=== PATIENT | female | born 1935 | race Caucasian/White ===

== ENCOUNTER 2019-12-11 13:42 | Outpatient (CLI) | payer MEDICARE, SELFPAY ==
[2019-12-11 14:16] LABS: Basophils Percent Auto 0.5 % (0.2-1.2); Eosinophils Absolute Auto 0.2 K/mm3 (0-0.3); Eosinophils Percent Auto 4.1 % (0-4.4); Hematocrit 44.1 % (37.0-47.0); Hemoglobin 14.2 g/dL (12.0-15.0); Immature Granulocyte Absolute 0.01 K/mm3 (0.00-0.031); Immature Granulocyte Percent A 0.2 % (0-0.5); Lymphocytes Absolute Auto 1.68 K/mm3 (0.9-3.2); Lymphocytes Percent Auto 28.5 % (18.3-44.2); Mean Corpuscular HGB Conc 32.2 g/dl (32-36); Mean Corpuscular Hemoglobin 27.9 pg (26-34); Mean Corpuscular Volume 86.6 fl (80-100); Mean Platelet Volume 10.1 fl (7.4-10.4); Monocytes Absolute Auto 0.7 K/mm3 (0.1-0.6); Monocytes Percent Auto 11.9 % (2.6-8.5); Neutrophils Absolute Auto 3.2 K/mm3 (1.3-6.7); Neutrophils Percent Auto 54.8 % (45.5-73.1); Platelet Count Result 242 k/mm3 (150-375); Red Blood Count 5.09 M/mm3 (4.2-5.4); Red Cell Distribution Width 15.5 % (11.5-14.5); White Blood Count 5.9 K/mm3 (4.5-10.0)
[2019-12-11 14:27] LABS: Cholesterol 219 mg/dL (0-200); HDL Direct 58 mg/dL; Triglycerides 216 mg/dL (<150)
[2019-12-11 14:28] LABS: Alanine Aminotransferase 13 U/L (4-35); Albumin Level 4.3 g/dL (3.5-5.1); Alkaline Phosphatase 88 U/L (38-126); Anion Gap 10.1 mmol/L (7-16); Aspartate Amino Transferase 33 U/L (14-36); Bilirubin,Total 0.5 mg/dL (0.2-1.3); Blood Urea Nitrogen 23 mg/dL (7-17); Calcium 8.9 mg/dL (8.4-10.2); Carbon Dioxide 30 mmol/L (22-30); Chloride 98 mmol/L (98-107); Estimated Glomerular Filt Rate 60; Glucose 111 mg/dL (65-105); Potassium 4.1 mmol/L (3.4-5.0); Sodium 134 mmol/L (137-145)
[2019-12-11 14:37] LABS: LDL Cholesterol Direct 120 mg/dL
[2019-12-11 15:29] LABS: Free T4 Free Thyroxine 1.74 ng/mL (0.78-2.19)
== END 2019-12-11 13:43 | disposition home or self-care (01) ==
PROVIDERS: PCP Family Medicine; Visit Provider Physician Assistant
DX: I10 Essential (primary) hypertension (principal); E03.9 Hypothyroidism, unspecified; R94.6 Abnormal results of thyroid function studies
CPT/HCPCS: 36415; 80053; 80061; 84439; 84443; 85025

== ENCOUNTER 2020-02-22 12:31 | Emergency (ER) | payer MEDICARE, SELFPAY ==
--- NOTE | ~2020-02-22 | CT_ITS ---
EXAMINATION: CT brain wo con EXAM DATE: 02/22/2020 13:26 INDICATION: Fall, right-sided head injury. TECHNIQUE: Spiral CT of the head was performed without contrast. Axial, coronal and sagittal images were reviewed. The dose-length product (DLP) for this examination was 605.33 mGy-cm. The exposure w as tailored according to patient size, and iterative reconstruction (ASIR) was used as additional dos e reduction technique. There is no prior study for comparison. FINDINGS: There is no acute intraparenchymal hemorrhage. No evidence of intraparenchymal brain mass lesion. No evidence of acute infarction. Please note that initial head CT has limited sensitivity f or small or acute infarctions. There is mild periventricular and subcortical hypodensity, nonspecific but probably related to small vessel ischemic disease. There is mild to moderate prominence of the sulci and ventricles related to cerebral atrophy. There is intracranial carotid arteriosclerosis. There are no extra-axial collections. There is no mass effect or midline shift. Patient has had le ft-sided ocular lens surgery. There is large right vertex scalp hematoma. The visualized sinuses an d mastoid air cells are well aerated. IMPRESSION: 1. No acute intracranial findings. 2. Chronic age related findings. 3. Large right vertex scalp hematoma without underlying fracture. Reviewed, dictated and finalized at location A.
--- NOTE | ~2020-02-22 | XR_ITS ---
EXAMINATION: XR hip RT 2V w AP pelvis EXAM DATE: 02/22/2020 13:17 INDICATION: Fall, pelvic, right hip pain. TECHNIQUE: Right hip frontal, 'frog leg' projections for interpretation. Frontal projection pelvis. There is no prior study for comparison. FINDINGS: Smooth right hip femoral head contour, no radiographic evidence of avascular necrosis. There is mild symmetric bilateral hip primary osteoarthritis. There are no acute fractures or disloca tions identified. There is no subcutaneous gas. The soft tissue is unremarkable. Some scattered a bdominal surgical clips. IMPRESSION: No acute right hip, pelvic findings. Reviewed, dictated and finalized at location A.
--- NOTE | ~2020-02-22 | XR_ITS ---
EXAMINATION: XR elbow RT min 3V EXAM DATE: 02/22/2020 13:17 INDICATION: Initial encounter following injury, with pain of the right elbow. TECHNIQUE: Right elbow frontal, lateral with flexion, and oblique projections obtained and reviewed. There is no prior study for comparison. FINDINGS: There is large right elbow joint hemarthrosis. There is acute closed posttraumatic nondispl aced radial head/neck fracture. No radiopaque foreign bodies identified. IMPRESSION: 1. Acute right radial head/neck fracture. 2. Large right elbow joint hemarthrosis. Reviewed, dictated and finalized at location A.
--- NOTE | ~2020-02-22 | XR_ITS ---
EXAMINATION: XR wrist RT min 3V EXAM DATE: 02/22/2020 13:17 INDICATION: Initial encounter following injury, with pain of the right elbow. TECHNIQUE: Right elbow frontal, lateral with flexion, and oblique projections obtained and reviewed. There is no prior study for comparison. FINDINGS: Right elbow anterior humeral line intact. There are no acute fractures or dislocations margarita ntified. There is no subcutaneous gas. The soft tissue is unremarkable. There are no radiopaque f oreign bodies. There is mild triscaphe primary osteoarthritis. IMPRESSION: 1. XR wrist RT min 3V exam without acute osseous findings. Reviewed, dictated and finalized at location A.
[2020-02-22 12:33] VITALS: BP 147/98; PULSE 93; RESP 18; TEMP 36.3; O2SAT 100
--- NOTE | 2020-02-22 14:19 | ED.GENADULT ---
HPI - General Adult General Chief complaint: Fall Stated complaint: fall, sent from [facility] Time Seen by Provider: 02/22/20 12:36 Source: RN notes reviewed History of Present Illness HPI narrative: Patient presents emergency department from urgent care for a fall. Patient states she fell 5 days ago states she was in her basement she slipped and fell. She states at that time she had struck her head causing swelling to the right side of her head as well as her right elbow wrist and hip. She states she has been up walking around but does note of bruising to the right elbow wrist and hip and had gone to urgent care today and referred to the emergency department for further evaluation as the patient is on Eliquis. She denies any loss of consciousness denies any change in mental status nausea or vomiting vision changes numbness or tingling in extremities chest pain shortness of breath abdominal pain nausea vomiting or any other symptoms. Patient states she has been walking without any difficulty as well as been using her arm with no difficulty. States she has been taking Tylenol at home for her pain with good improvement. Related Data Home Medications Medication Instructions Recorded Confirmed hydrochlorothiazide 12.5 mg tablet 12.5 mg PO DAILY 05/30/19 01/25/20 metoprolol succinate 100 mg 100 mg PO BID 05/30/19 01/25/20 tablet,extended release 24 hr Allergies Allergy/AdvReac Type Severity Reaction Status Date / Time No Known Allergies Allergy Unverified 11/28/19 14:03 Review of Systems Review of Systems: Narrative: Gen.: Denies fevers or chills Eyes: Denies eye pain or visual change ENT: Denies congestion Respiratory: Denies shortness of breath or cough CV: Denies chest pain or palpitations GI: Denies abdominal pain nausea, emesis or diarrhea Musculoskeletal: See HPI Neuro: Denies numbness, tingling, weakness or focal weakness Skin: Denies rash Except as documented, all other systems reviewed and negative [facility] Past Medical History Medical History A-fib Bladder incontinence Colon cancer Hypothyroidism determined by thyroid function test Vulva cancer Social History Social History Social History: Smoking status: Never smoker Second hand tobacco smoke exposure: No Alcohol intake: never Substance use: never Substance use type: does not use Gender identity (if verbalized by the patient): Female Exam Narrative: Exam Narrative: APPEARANCE: Well appearing, no apparent distress, well-nourished. HEENT: normocephalic swelling and ecchymosis of right superior lateral scalp no facial tenderness EYES: PERRL NECK: Supple. No midline tenderness to palpation. Full range of motion without pain RESPIRATORY: No respiratory distress. Clear to auscultation bilaterally CARDIOVASCULAR: Regular rate and rhythm without murmurs rubs or gallops. ABDOMINAL: Soft, nontender, nondistended, no rebound or guarding MUSCULOSKELETAl: Moves all extremities. No tenderness to palpation of left upper and lower extremities. No clubbing cyanosis or edema the right elbow is mildly tender over the lateral aspect with swelling and ecchymosis present, full flexion-extension of the elbow without pain, mild diffuse tenderness of the wrist, full flexion-extension of the wrist without pain, ecchymosis and mild swelling of the right wrist, no tenderness of the hand with full flexion-extension of all 5 MCP and IP joints, no tenderness of the right shoulder with full movement, bilateral radial pulse 2+, the right lateral hip has mild tenderness palpation with swelling present no tenderness of the right knee or ankle, cells pedis pulse 2+ Back: No midline thoracic or lumbar tenderness to palpation Pelvis: Stable, nontender NEURO: Awake and alert ?3. Follows commands. Speech normal. No focal deficits. SKIN:: Warm, dry. Normal Color Cour
== END 2020-02-22 15:01 | disposition home or self-care (01) ==
PROVIDERS: Emergency Provider Emergency Medicine; PCP Family Medicine
DX: S52.124A Nondisplaced fracture of head of right radius, initial encounter for closed fracture (principal); S00.93XA Contusion of unspecified part of head, initial encounter; S70.01XA Contusion of right hip, initial encounter; S60.211A Contusion of right wrist, initial encounter; I48.91 Unspecified atrial fibrillation; E03.9 Hypothyroidism, unspecified; Z85.44 Personal history of malignant neoplasm of other female genital organs; Z85.038 Personal history of other malignant neoplasm of large intestine; W01.0XXA Fall on same level from slipping, tripping and stumbling without subsequent striking against object, initial encounter
CPT/HCPCS: 70450; 73080; 73110; 73502; 99284; A4565

== ENCOUNTER 2020-07-14 19:49 | Inpatient (IN) | payer MEDICARE, SELFPAY ==
--- NOTE | ~2020-07-14 | XR_ITS ---
EXAMINATION: XR hip LT 2V w AP pelvis DATE: 07/14/2020 21:00 INDICATION: Left hip pain. Fall. TECHNIQUE: An anteroposterior view of the pelvis and 2 views of left hip were obtained. COMPARISON: Pelvis and right hip radiographs 02/22/2020 FINDINGS: There is a subcapital fracture of left femoral neck. The distal fracture fragment demonstra elliott 40 degrees varus angulation, 1.5 cm shortening, and 10 mm anterior displacement. There is mild os teoarthritis of the hips. Surgical clips overlie the abdomen. IMPRESSION: 1. Subcapital fracture of left femoral neck. 2. Mild osteoarthritis of the hips. Reviewed, dictated and finalized at location A. JOINTER OPERATOR
--- NOTE | ~2020-07-14 | XR_ITS ---
EXAMINATION: XR surgery orthopedic DATE: 07/16/2020 20:02 INDICATION: Distal left radius fracture. TECHNIQUE: 21 intraoperative fluoroscopic views of the left wrist were obtained. I was not present. F luoroscopy exposure time was 202 seconds. COMPARISON: Left wrist CT 07/14/2020 FINDINGS: There is a comminuted fracture of distal radius in near-anatomic alignment status post open reduction internal fixation with volar plate and screws. There is an avulsion fracture of the ulnar styloid. There is severe osteoarthritis of triscaphe joint. IMPRESSION: 1. Comminuted fracture of distal radius in near-anatomic alignment status post open reduction interna l fixation. 2. Avulsion fracture of the ulnar styloid. Reviewed, dictated and finalized at location A. UTIVE DIRECTOR OF MARKETING IMPRESSION: 1. Comminuted fracture of distal radius in near-anatomic alignment status post open reduction internal fixation. 2. Avulsion fracture of the ulnar styloid.
--- NOTE | ~2020-07-14 | XR_ITS ---
EXAMINATION: XR hip RT min 2V DATE: 07/15/2020 13:59 INDICATION: Fall. Suboptimal imaging on prior pelvic radiographs with right hip in internal rotation. TECHNIQUE: 2 portable anteroposterior views of the right hip were obtained, one centered at the femor al head and the second centered more caudally near the level of the lesser trochanter. COMPARISON: 07/14/2020 FINDINGS: Alignment is normal. No fracture. Mild right hip and sacroiliac osteoarthritis. A few phleboliths in the pelvis. Atherosclerotic calcific a cyst along the right common femoral and proximal right femoral artery. IMPRESSION: 1. Mild right hip osteoarthritis. No acute osseous abnormality. Reviewed, dictated and finalized at location A. LIFT MULE OPERATOR
--- NOTE | ~2020-07-14 | XR_ITS ---
EXAMINATION: XR chest 1V portable DATE: 07/14/2020 21:00 INDICATION: Atrial fibrillation. Fall. TECHNIQUE: A single frontal view of the chest was obtained. COMPARISON: Chest single view 10/23/12, CT abdomen and pelvis 01/19/2018 FINDINGS: A calcified right lung nodule and calcified right hilar lymph nodes are consistent with old granulomatous disease. There is mild scarring at the lung apices. There is mild atelectasis at the l walter bases. No pleural effusion or pneumothorax. Cardiomegaly is noted. There are old healed left rib fractures. IMPRESSION: 1. Mild atelectasis at the lung bases. 2. Cardiomegaly. Reviewed, dictated and finalized at location A. CHANGE CREW MEMBER
--- NOTE | ~2020-07-14 | XR_ITS ---
EXAMINATION: XR surgery orthopedic DATE: 07/16/2020 16:37 INDICATION: Left femoral neck fracture. TECHNIQUE: 2 intraoperative views of left hip were obtained. COMPARISON: Pelvis radiograph 07/14/2020 FINDINGS: The acetabular component of the bipolar arthroplasty is in expected position. There is a br oach in the proximal left femur. No fracture. IMPRESSION: 1. Bipolar left hip hemiarthroplasty in progress. Reviewed, dictated and finalized at location A. ITY SUPERVISOR BOAT AND PLANT
--- NOTE | ~2020-07-14 | XR_ITS ---
EXAMINATION: XR pelvis 1-2V DATE: 07/14/2020 21:54 INDICATION: Left femoral neck fracture. TECHNIQUE: An anteroposterior view of the pelvis was obtained. COMPARISON: Radiographs 07/14/2020 FINDINGS: There is a subchondral fracture of left femoral neck. The distal fracture fragment demonstr ates 40 degrees varus angulation and 1.5 cm shortening. There is mild osteoarthritis of the hips. Dell gical clips overlie the abdomen. IMPRESSION: 1. Subcapital fracture of left femoral neck. 2. Mild osteoarthritis of the hips. Reviewed, dictated and finalized at location A. GENERATOR OPERATOR
--- NOTE | ~2020-07-14 | CT_ITS ---
EXAMINATION: CT wrist LT wo con DATE: 07/14/2020 23:13 INDICATION: Distal left radius fracture. TECHNIQUE: Computed tomography (CT) of the left wrist was performed without intravenous contrast. Aut omated exposure control and iterative reconstruction technique were employed. The dose-length product was 630.53 mGy-cm. COMPARISON: Left wrist radiographs 07/14/2020 FINDINGS: There is a comminuted fracture of distal radius with involvement of the distal articular vick rface and distal radioulnar joint. The main distal fracture fragment demonstrates impaction and dorsa l angulation. There is 6 degrees dorsal tilt of the distal articular surface. There is an avulsion fr acture of the ulnar styloid. There is severe osteoarthritis of triscaphe joint. IMPRESSION: 1. Comminuted fracture of distal radius. 2. Avulsion fracture of the ulnar styloid. Reviewed, dictated and finalized at location A. CIPAL WEB DEVELOPER
--- NOTE | ~2020-07-14 | XR_ITS ---
EXAMINATION: XR hip LT 1V w AP pelvis DATE: 07/16/2020 18:01 INDICATION: Left femoral neck fracture. TECHNIQUE: An anteroposterior view of the pelvis and single view of left hip were obtained. COMPARISON: Pelvis radiograph 07/14/2020 FINDINGS: There is a bipolar left hip hemiarthroplasty in near-anatomic alignment. No fracture. There is mild right hip osteoarthritis. IMPRESSION: 1. Bipolar left hip hemiarthroplasty in near-anatomic alignment. Reviewed, dictated and finalized at location A. LEX CASE MANAGER
--- NOTE | ~2020-07-14 | XR_ITS ---
EXAMINATION: XR wrist LT min 3V DATE: 07/14/2020 21:00 INDICATION: Left wrist pain. Fall. TECHNIQUE: 2 views of left wrist were obtained. COMPARISON: None. FINDINGS: There is a comminuted fracture of distal radius with involvement of the distal articular vick rface and distal radioulnar joint. The main distal fracture fragment demonstrates impaction and dorsa l angulation. There is 11 degrees dorsal tilt of the distal articular surface. There is an avulsion f racture of the ulnar styloid. There is moderate osteoarthritis of triscaphe joint. Osteopenia is note d. IMPRESSION: 1. Comminuted fracture of distal radius. 2. Avulsion fracture of the ulnar styloid. Reviewed, dictated and finalized at location A. PRESIDENT TALENT MANAGEMENT
[2020-07-14 19:47] VITALS: BP 172/86; PULSE 97; RESP 18; TEMP 36.6; O2SAT 97
--- NOTE | 2020-07-14 20:16 | ECG_ITS ---
Measurements Intervals [place] Rate: 89 P: IA: 0 QRS: 81 QRSD: 84 T: 42 QT: 386 QTc: 471 Interpretive Statements ATRIAL FIBRILLATION ABNORMAL ECG Electronically Signed On 07-15-2020 6:50:42 LENDING CONSULTANT by Francisco Reynolds D.O.
[2020-07-14] MEDS: MORPHINE SULFATE (*CRX) 4 MG/ML INJ IV PUSH (20:48)
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
[2020-07-14 21:37] LABS: Basophils Percent Auto 0.3 % (0.2-1.2); Eosinophils Absolute Auto 0.1 K/mm3 (0-0.3); Eosinophils Percent Auto 0.8 % (0-4.4); Hematocrit 42.9 % (37.0-47.0); Hemoglobin 14.1 g/dL (12.0-15.0); Immature Granulocyte Absolute 0.08 K/mm3 (0.00-0.031); Immature Granulocyte Percent A 0.6 % (0-0.5); Lymphocytes Absolute Auto 1.28 K/mm3 (0.9-3.2); Lymphocytes Percent Auto 9.1 % (18.3-44.2); Mean Corpuscular HGB Conc 32.9 g/dl (32-36); Mean Corpuscular Hemoglobin 29.7 pg (26-34); Mean Corpuscular Volume 90.5 fl (80-100); Mean Platelet Volume 10.1 fl (7.4-10.4); Monocytes Absolute Auto 0.6 K/mm3 (0.1-0.6); Monocytes Percent Auto 4.5 % (2.6-8.5); Neutrophils Percent Auto 84.7 % (45.5-73.1); Platelet Count Result 213 k/mm3 (150-375); Red Blood Count 4.74 M/mm3 (4.2-5.4); White Blood Count 14.1 K/mm3 (4.5-10.0)
[2020-07-14 21:46] LABS: INR 1.1; Prothrombin Time 14.7 Seconds (11.1-14.7)
[2020-07-14 21:47] LABS: Partial Thromboplastin Time 30.5 SECONDS (22.3-36.8)
[2020-07-14 21:50] LABS: Anion Gap 9 mmol/L (8-16); Blood Urea Nitrogen 25 mg/dL (7-17); Calcium 9.3 mg/dL (8.4-10.2); Carbon Dioxide 25 mmol/L (22-30); Chloride 105 mmol/L (98-107); Estimated CRCL calculation 46 ml/min; Estimated Glomerular Filt Rate 60; Glucose 112 mg/dL (65-105); Potassium 4.1 mmol/L (3.4-5.0); Sodium 139 mmol/L (137-145)
[2020-07-14 22:26] VITALS: BP 166/93; PULSE 104; RESP 18; O2SAT 98
[2020-07-14 23:20] VITALS: BP 159/95; PULSE 111; RESP 18; O2SAT 95
--- NOTE | 2020-07-14 23:35 | ADMGEN ---
This patient, Jossy Rasheed, was admitted to Medical Room 348-01. Patient/family oriented to hospital policies and general routines including ID bracelet, bed and alarms, visiting hours, pain management, procedures, bathroom and other care routines, personal items, smoking policy, room service/diet, and visiting hours. Information on how to activate the Rapid Response Team has been discussed. Patient/Family are encouraged to report perceived risks to care and to ask questions if they do not understand what they are told or what they should do.
[2020-07-14 23:45] VITALS: BMI 29.0
[2020-07-15] VITALS (7 sets, daily range): BP systolic 131–171; BP diastolic 56–95; PULSE 83–100; RESP 16–20; TEMP 35.5–36.6; O2SAT 95–97
[2020-07-15] MEDS: ACETAMINOPHEN 325 MG TABLET 650 MG PO (05:14)
[2020-07-15 08:02] LABS: Hematocrit 39.1 % (37.0-47.0); Hemoglobin 12.9 g/dL (12.0-15.0); Mean Corpuscular Hemoglobin 29.5 pg (26-34); Mean Corpuscular Volume 89.5 fl (80-100); Mean Platelet Volume 10.1 fl (7.4-10.4); Platelet Count Result 194 k/mm3 (150-375); Red Blood Count 4.37 M/mm3 (4.2-5.4); White Blood Count 8.7 K/mm3 (4.5-10.0)
[2020-07-15 08:12] LABS: Alanine Aminotransferase 17 U/L (4-35); Albumin Level 3.5 g/dL (3.5-5.1); Alkaline Phosphatase 78 U/L (38-126); Anion Gap 6 mmol/L (8-16); Aspartate Amino Transferase 28 U/L (14-36); Bilirubin,Total 0.6 mg/dL (0.2-1.3); Blood Urea Nitrogen 23 mg/dL (7-17); Calcium 8.6 mg/dL (8.4-10.2); Carbon Dioxide 27 mmol/L (22-30); Chloride 104 mmol/L (98-107); Estimated CRCL calculation 57 ml/min; Estimated Glomerular Filt Rate > 60; Glucose 125 mg/dL (65-105); Potassium 3.9 mmol/L (3.4-5.0); Sodium 137 mmol/L (137-145)
[2020-07-15] MEDS: oxyCODONE HCL (*CRX) 2.5 MG TAB IR PO ×5 (08:35→23:40)
--- NOTE | 2020-07-15 08:56 | PM.IMHP ---
H&P: HPI History of Present Illness Date/Time: 07/15/20 08:56 Chief Complaint: Fall at home Narrative: Jossy Rasheed is a 85 year old female admitted through the emergency room with the complaints that while picking up her newspaper at home home she fell down and injured her left side of the body resulting in fracture of the femur and the left wrist. Patient denies hitting her head patient, denies any shortness of breath or chest pain. Patient denies any loss of consciousness. Patient pain is controlled at present time. Review of Systems Review of Systems: All systems reviewed & are unremarkable except as noted in HPI and below (the history and physical exam) [facility] Past Medical History Medical History (Updated 07/14/20 @ 21:36 by Mio Morel MD) A-fib Bladder incontinence Colon cancer Hypothyroidism determined by thyroid function test Venous insufficiency of both lower extremities Vulva cancer Surgical History Surgical History H/O hemicolectomy Family History Family History Mother Carcinoma of colon, Onset Age: 75 Patient's mother is Father Family history of Alzheimer's disease, Onset Age: 75 Patient's father is Social History Social History (Updated 04/09/20 @ 13:12 by Lety Wasserman) Social History: Smoking status: Never smoker Second hand tobacco smoke exposure: Yes Alcohol intake: never Substance use: never Substance use type: does not use Gender identity (if verbalized by the patient): Female Spiritual care concerns: No Meds Home Medications and Allergies Home Medications Medication Instructions Recorded Confirmed Type apixaban 5 mg tablet 5 mg PO BID #60 tablet 04/09/20 07/14/20 Rx furosemide 20 mg tablet 20 mg PO QAM #30 tablet 04/09/20 07/14/20 Rx levothyroxine 75 mcg tablet 75 mcg PO DAILY #90 tablet 04/09/20 07/14/20 Rx losartan 50 mg tablet 50 mg PO DAILY #90 tablet 04/09/20 07/14/20 Rx metoprolol succinate 100 mg 100 mg PO BID #180 tablet 04/09/20 07/14/20 Rx tablet,extended release 24 hr Allergies Allergy/AdvReac Type Severity Reaction Status Date / Time No Known Allergies Allergy Verified 07/14/20 23:54 Vital Signs Vital Signs - 24 hr 07/14/20 19:47 07/14/20 22:26 07/14/20 23:20 Temperature 36.6 C Pulse Rate 97 104 H 111 H Respiratory Rate 18 18 18 Blood Pressure 172/86 H 166/93 H 159/95 H Pulse Oximetry 97 98 95 07/15/20 00:34 07/15/20 04:55 07/15/20 08:04 Temperature 36.2 C L 36.6 C 35.5 C L Pulse Rate 100 83 88 Respiratory Rate 16 20 Blood Pressure 171/95 H 141/82 H 144/81 H Pulse Oximetry 96 97 95 Exam Narrative: Exam Narrative: Exam Narrative: GENERAL: Uncomfortable-appearing, well-nourished, and in no acute distress. HEAD: Normocephalic, atraumatic. EYES: PERRL and EOMI. CHEST: Clear to auscultation. No respiratory distress. HEART: Regular rate and rhythm. Normal peripheral pulses. ABDOMEN: Soft, nontender, nondistended. EXTREMITIES: Left upper extremity with deformity and tenderness at the wrist with no tenderness of the elbow or shoulder. Limited range of motion due to pain. Left hip with pain and inability to perform range of motion exercises. Left leg shortening compared to right. Neurovascularly intact distal to injury. SKIN: Warm, dry, no rash. NEURO: No focal deficits. Alert and oriented x3. PSYCH: Normal mood and affect. H&P: Results Labs Labs: Short CBC 07/14/20 07/15/20 Range/Units 21:28 07:51 WBC 14.1 H 8.7 (4.5-10.0) K/mm3 Hgb 14.1 12.9 (12.0-15.0) g/dL Hct 42.9 39.1 (37.0-47.0) % Plt Count 213 194 (150-375) k/mm3 [facility] 07/14/20 07/15/20 21:28 07:49 Sodium 139 137 Potassium 4.1 3.9 Chloride 105 104 Carbon Dioxide 25 27 BUN 25 H 23 H Creatinine 0.90 0.70 Glucose 112 H 125 H Calciu
[2020-07-15 09:22] LABS: Vitamin D 25 Hydroxy 29.2 ng/mL
[2020-07-15] MEDS: METOPROLOL SUCCINATE EXT REL 100 MG TABCR PO ×2 (10:26→20:14)
[2020-07-15] MEDS: LOSARTAN POTASSIUM 50 MG TABLET PO (10:27)
[2020-07-15] MEDS: LEVOTHYROXINE SODIUM 75 MCG TABLET PO (10:27)
[2020-07-15] MEDS: FUROSEMIDE 20 MG TABLET PO (10:28)
[2020-07-15] MEDS: ACETAMINOPHEN 500 MG TABLET 1000 MG PO ×3 (11:27→23:39)
[2020-07-15 12:20] LABS: Add Urine Microscopic? YES; Appearance Urine Clear (Clear); Bilirubin Urine Negative (Negative); Blood Urine 2+ (Negative); Color Urine Yellow (Yellow); Glucose Urine UA Negative (Negative); Ketones Urine Negative (Negative); Leukocyte Esterase Ur Trace LEU/UL (Negative); Nitrate Urine Negative (Negative); Protein Urine 1+ mg/dL (Negative); RBC Urine >75 /hpf (0-2); Specific Grav Ur 1.018 (1.001-1.035); Urobilinogen Urine Negative mg/dL (<2.0)
--- NOTE | 2020-07-15 13:02 | PC.NURSE ---
On 07/15/20, the student, [ Kirstie Cam], provided care and completed [facility] documentation on this patient. I have reviewed the student's documentation and agree with the findings.
--- NOTE | 2020-07-15 13:50 | PM.CNCAR ---
Assessment and Plan Assessment and plan (1) Preoperative cardiovascular examination: Code(s): Z01.810 - Encounter for preprocedural cardiovascular examination Status: Acute Assessment and Plan: Patient is at intermediate risk nonemergent noncardiac surgery for adverse cardiovascular events primarily related to her history of atrial fibrillation and stroke risk. Patient is not clinically in decompensated heart failure, does not exhibit new activity limitations or symptoms suggestive of angina. She has no known history of CAD and prior to her fall states she noted no new activity limitations. She is currently hemodynamically stable without acute ischemic changes on EKG. She has permanent atrial fibrillation. No further invasive testing preoperatively indicated. Ischemic evaluation at this time will not significantly change our management. They are aware there are risks with regards to stroke, myocardial infarction given her age nonetheless. Patient is optimized from a cardiac perspective at present. (2) A-fib: Qualifiers: Atrial fibrillation type: permanent Qualified Code(s): I48.21 - Permanent atrial fibrillation Code(s): I48.91 - Unspecified atrial fibrillation Status: Acute Assessment and Plan: Heart rate reasonably controlled. She was on Toprol XL 100 mg twice daily as well as apixaban 5 mg twice daily as an outpatient. Resume anticoagulation postoperatively to possible. This has been held already in anticipation for surgery. Continue beta-ethan therapy without interruption. Telemetry postoperatively times 24 hours to monitor heart rate control. (3) Recurrent falls: Code(s): R29.6 - Repeated falls Status: Acute Assessment and Plan: Had 2 falls in the past 6 months although 1 included head injury in February. We discussed candidacy for anticoagulation particularly if she has ongoing falls and potential need to discontinue in favor of aspirin. However, this will be addressed further as an outpatient unless new concerns arise in the interval period (4) Hypertension: Code(s): I10 - Essential (primary) hypertension Status: Acute Assessment and Plan: Elevated but fair control. Continue to monitor. Resume antihypertensive therapy. (5) Fracture of femoral neck, left, closed: Code(s): S72.002A - Fracture of unspecified part of neck of left femur, initial encounter for closed fracture Status: Acute Assessment and Plan: Per Orthopedic surgery. See above. (6) Distal radius fracture, left: Code(s): S52.502A - Unspecified fracture of the lower end of left radius, initial encounter for closed fracture Status: Acute Assessment and Plan: Currently in a splint/cast. Per Orthopedic surgery. (7) Hypothyroidism determined by thyroid function test: Code(s): E03.9 - Hypothyroidism, unspecified; R94.6 - Abnormal results of thyroid function studies Status: Acute Assessment and Plan: Per primary service. (8) Chronic anticoagulation: Code(s): Z79.01 - jail (current) use of anticoagulants Status: Acute Assessment and Plan: On hold, last dose yesterday morning. 48 hour hold adequate preoperatively. DVT prophylaxis in the interval. SCD's or Enoxaparin. History of Present Illness History of Present Illness Consult date/time: Date of service: 07/15/20 13:50 Cardiology consultation at the request of Dr. Barraza of [facility]opedic surgery for preoperative risk assessment. Requesting physician: Rm Barraza MD Consult reason: pre-op evaluation Reason For Visit: hip fracture, distal radius fracture Narrative: Patient is a very pleasant 85-year-old female with a past medical history significant for permanent atrial fibrillation, hypertension, hypothyroidism, dyslipidemia history of colon cancer, vulvar cancer is well known to our practice who was in her usual state of health wh
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
[2020-07-16] VITALS (17 sets, daily range): BP systolic 125–170; BP diastolic 64–98; PULSE 61–116; RESP 12–24; TEMP 36.1–36.4; O2SAT 93–99
[2020-07-16 06:11] LABS: Hematocrit 39.3 % (37.0-47.0); Hemoglobin 12.9 g/dL (12.0-15.0); Mean Corpuscular HGB Conc 32.8 g/dl (32-36); Mean Corpuscular Hemoglobin 29.1 pg (26-34); Mean Corpuscular Volume 88.7 fl (80-100); Mean Platelet Volume 10.3 fl (7.4-10.4); Platelet Count Result 186 k/mm3 (150-375); Red Blood Count 4.43 M/mm3 (4.2-5.4); Red Cell Distribution Width 13.2 % (11.5-14.5); White Blood Count 8.1 K/mm3 (4.5-10.0)
[2020-07-16] MEDS: oxyCODONE HCL (*CRX) 2.5 MG TAB IR PO ×3 (06:29→23:10)
[2020-07-16] MEDS: LEVOTHYROXINE SODIUM 75 MCG TABLET PO (06:29)
[2020-07-16] MEDS: ACETAMINOPHEN 500 MG TABLET 1000 MG PO ×3 (06:29→23:10)
[2020-07-16 06:43] LABS: Alanine Aminotransferase 12 U/L (4-35); Albumin Level 3.2 g/dL (3.5-5.1); Alkaline Phosphatase 74 U/L (38-126); Anion Gap 3 mmol/L (8-16); Aspartate Amino Transferase 24 U/L (14-36); Bilirubin,Total 0.6 mg/dL (0.2-1.3); Blood Urea Nitrogen 20 mg/dL (7-17); Calcium 8.2 mg/dL (8.4-10.2); Carbon Dioxide 30 mmol/L (22-30); Chloride 102 mmol/L (98-107); Estimated CRCL calculation 51 ml/min; Estimated Glomerular Filt Rate > 60; Glucose 105 mg/dL (65-105); Potassium 3.4 mmol/L (3.4-5.0); Sodium 135 mmol/L (137-145)
--- NOTE | 2020-07-16 08:58 | PC.NURSE ---
Jatin Sinha in preop only give the pt's metoprolol before surgery.
[2020-07-16] MEDS: METOPROLOL SUCCINATE EXT REL 100 MG TABCR PO ×2 (09:01→22:01)
--- NOTE | 2020-07-16 12:35 | PC.NURSE ---
Pt to Preop per bed.
[2020-07-16] MEDS: LACTATED RINGERS 1,000 ML 30 ML IV CONT ×2 (12:45→20:17)
--- NOTE | 2020-07-16 12:49 | WPDANESEPPF ---
Anes - Initial Pre Proc Eval Procedure: Operation Date: 07/16/20 15:00 Proposed Procedures p Cemented Bipolar Left Hip, - Rm Barraza MD s Open Reduction Internal Fixation Of Left Distal Radius Fracture - Rm Barraza MD Date/Time: 07/16/20 12:49 Surgeon: Lori Roy MD Pre Op Diagnosis: hip fracture, distal radius fracture Patient Data Age: 85 Gender: F Height: 1.7 m Weight: 84.2 kg Last Vital Signs Temp 36.4 C 07/16/20 04:47 Pulse 86 07/16/20 09:01 Resp 17 07/16/20 04:47 BP 125/65 07/16/20 04:47 Pulse Ox 94 07/16/20 04:47 Allergies Allergy/AdvReac Type Severity Reaction Status Date / Time No Known Allergies Allergy Verified 07/14/20 23:54 Home Medications Medication Instructions Recorded Confirmed Type apixaban 5 mg tablet 5 mg PO BID #60 tablet 04/09/20 07/14/20 Rx furosemide 20 mg tablet 20 mg PO QAM #30 tablet 04/09/20 07/14/20 Rx levothyroxine 75 mcg tablet 75 mcg PO DAILY #90 tablet 04/09/20 07/14/20 Rx losartan 50 mg tablet 50 mg PO DAILY #90 tablet 04/09/20 07/14/20 Rx metoprolol succinate 100 mg 100 mg PO BID #180 tablet 04/09/20 07/14/20 Rx tablet,extended release 24 hr Laboratory Tests 07/15/20 07/16/20 07/16/20 20:15 03:30 05:21 WBC 8.1 K/mm3 K/mm3 (4.5-10.0) RBC 4.43 M/mm3 M/mm3 (4.2-5.4) Hgb 12.9 g/dL g/dL (12.0-15.0) Hct 39.3 % % (37.0-47.0) MCV 88.7 fl fl (80-100) MCH 29.1 pg pg (26-34) MCHC 32.8 g/dl g/dl (32-36) RDW 13.2 % % (11.5-14.5) Plt Count 186 k/mm3 k/mm3 (150-375) MPV 10.3 fl fl (7.4-10.4) Sodium Potassium Chloride Carbon Dioxide Anion Gap BUN Creatinine Estim Creat Clear Calc Estimated GFR Glucose Calcium Total Bilirubin AST ALT Alkaline Phosphatase Total Protein Albumin SARS-CoV-2 RNA (RT-PCR) Pending Blood Type O Positive Antibody Screen Negative 07/16/20 05:21 WBC RBC Hgb Hct MCV MCH MCHC RDW Plt Count MPV Sodium 135 mmol/L L mmol/L (137-145) Potassium 3.4 mmol/L mmol/L (3.4-5.0) Chloride 102 mmol/L mmol/L (98-107) Carbon Dioxide 30 mmol/L mmol/L (22-30) Anion Gap 3 mmol/L L mmol/L (8-16) BUN 20 mg/dL H mg/dL (7-17) Creatinine 0.80 mg/dL mg/dL (0.7-1.0) Estim Creat Clear Calc 51 ml/min ml/min Estimated GFR > 60 (59 - ) Glucose 105 mg/dL mg/dL (65-105) Calcium 8.2 mg/dL L mg/dL (8.4-10.2) Total Bilirubin 0.6 mg/dL mg/dL (0.2-1.3) AST 24 U/L U/L (14-36) ALT 12 U/L U/L (4-35) Alkaline Phosphatase 74 U/L U/L (38-126) Total Protein 6.0 g/dL L g/dL (6.3-8.2) Albumin 3.2 g/dL L g/dL (3.5-5.1) SARS-CoV-2 RNA (RT-PCR) Blood Type Antibody Screen Patient hx anesthesia problems: none Family hx anesthesia problems: none [facility] Past Medical History Medical History (Updated 07/16/20 @ 12:46 by Nirmal Brock DO) A-fib Bladder incontinence Colon cancer Hypertension Hypothyroidism determined by thyroid function test Venous insufficiency of both lower extremities Vulva cancer Surgical History Surgical History H/O hemicolectomy Family History Family History Mother Carcinoma of colon, Onset Age: 75 Patient's mother is Father Family history of Alzheimer's disease, Onset Age: 75 Patient's father is Social History Social History Social History:
[2020-07-16] MEDS: TRANEXAMIC ACID 1,000MG/ISO100 1,000 MG/100 ML BAG 200 MG IVPB (13:32)
--- NOTE | 2020-07-16 14:02 | WPDHPUPDATE1 ---
History and Physical Update Update Date/Time: 07/16/20 14:02 History and Physical has been reviewed, including an updated exam of the patient. There are NO changes in the patient's condition. Risks, benefits, and alternatives have been discussed and questions answered. Patient agrees to proceed with procedure.
--- NOTE | 2020-07-16 14:03 | WPDHPUPDATE1 ---
History and Physical Update Update Date/Time: 07/16/20 14:03 History and Physical has been reviewed, including an updated exam of the patient. There are NO changes in the patient's condition. Risks, benefits, and alternatives have been discussed and questions answered. Patient agrees to proceed with procedure.
[2020-07-16] MEDS: ceFAZolin 2 GM/D5W 50 ML 2 GM/50 ML BAG IVPB (14:34)
[2020-07-16] MEDS: ceFAZolin SODIUM 1 GM VIAL 3 GM IRRIGATION (14:45)
[2020-07-16] MEDS: EPINEPHrine HCL INJ 1 MG/ML AMPUL IRRIGATION (14:55)
--- NOTE | 2020-07-16 15:03 | PM.IMPN ---
Progress Note: A&P Assessment and Plan (1) Fracture of femoral neck, left, closed: Code(s): S72.002A - Fracture of unspecified part of neck of left femur, initial encounter for closed fracture Status: Acute Assessment and Plan: Ortho consult and pain management Scheduled for surgery today (2) Distal radius fracture, left: Code(s): S52.502A - Unspecified fracture of the lower end of left radius, initial encounter for closed fracture Status: Acute Assessment and Plan: Ortho consult and pain management Scheduled for surgery (3) Fracture of ulnar styloid: Code(s): S52.613A - Displaced fracture of unspecified ulna styloid process, initial encounter for closed fracture Status: Acute Assessment and Plan: Ortho consult and pain management Scheduled for surgery to (4) Venous insufficiency of both lower extremities: Code(s): I87.2 - Venous insufficiency (chronic) (peripheral) Status: Acute Assessment and Plan: Patient Eliquis is on hold at present time for surgery will monitor closely and restart after surgery. (5) Hypertension: Code(s): I10 - Essential (primary) hypertension Status: Acute Assessment and Plan: Stable on medications (6) Hypothyroidism determined by thyroid function test: Code(s): E03.9 - Hypothyroidism, unspecified; R94.6 - Abnormal results of thyroid function studies Status: Acute Assessment and Plan: Stable on med (7) A-fib: Qualifiers: Atrial fibrillation type: permanent Qualified Code(s): I48.21 - Permanent atrial fibrillation Code(s): I48.91 - Unspecified atrial fibrillation Status: Acute Assessment and Plan: Heart rate is controlled at present time. Will hold Eliquis for surgery, restart after surgery. Additional Plan Patient is full code. Further evaluation and treatment of the patient be done according to the lab data available recommendation by the specialist. Patient will stay for more than 2 days in the hospital. Subjective Date/time seen: 07/16/20 15:03 Interval history: Patient was seen during rounds today. No shortness of breath or chest pain. Pain under control. Mood stable. Review of Systems Review of Systems: All systems reviewed & are unremarkable except as noted in HPI and below (the history and physical exam) Exam Narrative: Exam Narrative: Exam Narrative: GENERAL: Uncomfortable-appearing, well-nourished, and in no acute distress. HEAD: Normocephalic, atraumatic. EYES: PERRL and EOMI. CHEST: Clear to auscultation. No respiratory distress. HEART: Regular rate and rhythm. Normal peripheral pulses. ABDOMEN: Soft, nontender, nondistended. EXTREMITIES: Left upper extremity with deformity and tenderness at the wrist with no tenderness of the elbow or shoulder. Limited range of motion due to pain. Left hip with pain and inability to perform range of motion exercises. Left leg shortening compared to right. Neurovascularly intact distal to injury. SKIN: Warm, dry, no rash. NEURO: No focal deficits. Alert and oriented x3. PSYCH: Normal mood and affect. Objective Data Vital Signs Vital Signs: Vital Signs - 24 hr 07/15/20 15:24 07/15/20 20:08 07/15/20 20:14 Temperature 36.5 C 36.1 C L Pulse Rate 90 100 98 Respiratory Rate 16 18 Blood Pressure 131/56 L 136/64 Pulse Oximetry 95 95 07/16/20 04:47 07/16/20 09:01 07/16/20 12:41 Temperature 36.4 C 36.4 C Pulse Rate 81 86 85 Respiratory Rate 17 20 Blood Pressure 125/65 148/70 H Pulse Oximetry 94 95 Intake/Output Intake/Output: Intake & Output 07/13/20 07/14/20 07/15/20 07/16/20 23:59 23:59 23:59 23:59 Intake Total 1060 300 Output Total 1250 925 Balance -190 -625 Meds/Results Medications: Active Medications Generic Name Dose Route Start Last Admin Trade Name Freq PRN Reason Stop Dose Admin Acetaminophen 1,000 mg 07/15/20 12:00 07/16/20 11:30
[2020-07-16] MEDS: GENTAMICIN BONE CEMENT REFOBACIN 1 EACH TOPICAL (15:59)
--- NOTE | 2020-07-16 17:35 | SUR.OPER ---
left hip EBL 200ml
--- NOTE | 2020-07-16 17:42 | PM.PROC ---
Procedure Note - Detailed Date of procedure: 07/16/20 Pre-op diagnosis: hip fracture, distal radius fracture Left subcapital femoral neck fracture displaced, comminuted three-part left distal radius fracture and ulnar styloid fracture displaced Post-op diagnosis: same Procedure performed: Cemented bipolar hemiarthroplasty left hip, open reduction internal fixation of comminuted 3 part left distal radius fracture with innovation volar locking plate Description of procedure: Patient brought to the operating room and general anesthesia was administered. She received 2 g of Ancef weight based vancomycin and 1 g of tranexamic acid preoperatively. She was placed in the lateral decubitus position left hip prepped draped usual fashion. A 6 in longitudinal incision was made over the lateral aspect of the left hip dissection was carried down to the fascia which was incised longitudinally. The anterior 40% of gluteus medius and gluteus minimus were elevated off the anterior aspect of the greater trochanter and the capsule incised superiorly and elevated off the anterior femoral neck. Provisional femoral neck osteotomy was made. The femoral head was removed and measured just under 49 mm. The 49 mm set about a mm proud in the acetabulum the 50 mm trial about 4 mm proud. We chose the 49 mm. The articular cartilage was normal on the femoral head and the acetabulum and the acetabular labrum was normal. The femur was broached and we met a fair amount of resistance at the size 9 Biomet broach. We templated to accept a size 11. Intraoperative x-ray showed that the broach was a little bit of varus and that we needed to lateralize a little bit more the greater trochanter and that we could reduce the neck a bit. These steps were performed and this allowed us to broach up to a size 11 echo broach and this was countersunk 6 mm and calcar planed and on trialing the appropriate soft tissue tension was achieved with both a 0 and a +3 head using the high offset as predicted on preoperative templating. A 11 to 13 cement restrictor was placed and we used a 10 mm centralizer on the size 9 Biomet Echo cemented stem with lateralized offset. The canal was thoroughly irrigated treated with epinephrine-soaked sponges and dried and Biomet cement 1 with a gentamicin powder was mixed in this was inserted into the canal and pressurized lightly and stem was coated and inserted at about 10-15 degrees of anteversion matching her anatomy and the cement was allowed to harden. The acetabulum was cleared of any debris excess cement removed and we trialed. The +3 head seem to be appropriate with soft tissue tension and superb range of motion with no instability. The +3 head was assembled to the 49 mm bipolar head which was assembled onto the clean and dried trunnion the wound again irrigated with antibiotic solution hip reduced stability and range of motion reconfirmed. Capsule was repaired with 2. Ethibond, abductors with 5. Ethibond through bone 2. Ethibond, the fascia brodie repaired with 2. Vicryl and oversewn with 2 of the 1. Unidirectional barbed strata Fix sutures. A drain placed deep in the subcutaneous layer and the subcu closed with 2 O Vicryl and glue. EBL was 200 cc. She was felt to be stable at time of wound closure and we elected to proceed then with the open reduction internal fixation of her comminuted left distal radius fracture. We scrubbed the left upper extremity with chlorhexidine cloth and the left arm was prepped draped usual fashion on the hand table. An additional g of Ancef was given. The left arm was prepped with DuraPrep and longitudinal traction was applied total of 15 lb initially with fingertrap traction on the thumb index and long fingers. Tourniquet was elevated to 200 mmHg. A 3-1/2 inch longitudinal incision was made over the flexor carpi radialis tendon and dissection was carried down through the tendon sheath and through the floor of the tendon sheath and the flexor pollicis long
[2020-07-16] MEDS: ceFAZolin SODIUM 1 GM VIAL IV PUSH (18:00)
--- NOTE | 2020-07-16 20:25 | SUR.OPER ---
florian 275 yellow u/a clear EBL Hip 200 Wrist 10
--- NOTE | 2020-07-16 20:26 | SUR.OPER ---
pillow under knees to PACU. pillow under left upper arm/lower arm to PACU. Left hand fingers warm with +1 capillary refill
[2020-07-16 20:38] LABS: SARS-CoV-2 RNA PCR Negative
[2020-07-16] MEDS: fentaNYL CITRATE INJ (*CRX) 100 MCG/2 ML VIAL 25 MCG IV PUSH ×2 (21:00→21:15)
--- NOTE | 2020-07-16 21:54 | PC.NURSE ---
Pt returned to floor from OR at 014
[2020-07-16] MEDS: SODIUM CHLORIDE 0.9% IV 1,000 ML 125 ML IV CONT (23:09)
[2020-07-17] VITALS (11 sets, daily range): BP systolic 122–144; BP diastolic 62–89; PULSE 80–101; RESP 14–18; TEMP 36–37.2; O2SAT 96–99
[2020-07-17] MEDS: oxyCODONE HCL (*CRX) 2.5 MG TAB IR PO ×6 (04:04→23:01)
[2020-07-17] MEDS: ACETAMINOPHEN 500 MG TABLET 1000 MG PO ×3 (05:32→18:57)
[2020-07-17] MEDS: LEVOTHYROXINE SODIUM 75 MCG TABLET PO (05:33)
[2020-07-17 05:40] LABS: Basophils Percent Auto 0.1 % (0.2-1.2); Hematocrit 37.1 % (37.0-47.0); Hemoglobin 12.1 g/dL (12.0-15.0); Immature Granulocyte Absolute 0.06 K/mm3 (0.00-0.031); Immature Granulocyte Percent A 0.6 % (0-0.5); Lymphocytes Absolute Auto 0.55 K/mm3 (0.9-3.2); Lymphocytes Percent Auto 5.5 % (18.3-44.2); Mean Corpuscular HGB Conc 32.6 g/dl (32-36); Mean Corpuscular Hemoglobin 28.8 pg (26-34); Mean Corpuscular Volume 88.3 fl (80-100); Mean Platelet Volume 10.6 fl (7.4-10.4); Monocytes Absolute Auto 0.8 K/mm3 (0.1-0.6); Monocytes Percent Auto 7.5 % (2.6-8.5); Neutrophils Absolute Auto 8.7 K/mm3 (1.3-6.7); Neutrophils Percent Auto 86.3 % (45.5-73.1); Platelet Count Result 187 k/mm3 (150-375); Red Cell Distribution Width 12.9 % (11.5-14.5)
[2020-07-17 05:50] LABS: Anion Gap 4 mmol/L (8-16); Blood Urea Nitrogen 16 mg/dL (7-17); Calcium 7.8 mg/dL (8.4-10.2); Carbon Dioxide 28 mmol/L (22-30); Chloride 102 mmol/L (98-107); Estimated CRCL calculation 57 ml/min; Estimated Glomerular Filt Rate > 60; Glucose 174 mg/dL (65-105); Sodium 134 mmol/L (137-145)
[2020-07-17] MEDS: APIXABAN 2.5 MG TABLET PO ×2 (08:54→20:36)
[2020-07-17] MEDS: METOPROLOL SUCCINATE EXT REL 100 MG TABCR PO ×2 (08:54→20:36)
[2020-07-17] MEDS: FUROSEMIDE 20 MG TABLET PO (08:54)
--- NOTE | 2020-07-17 08:54 | PM.IMPN ---
Progress Note: A&P Assessment and Plan (1) Fracture of femoral neck, left, closed: Code(s): S72.002A - Fracture of unspecified part of neck of left femur, initial encounter for closed fracture Status: Acute Assessment and Plan: Ortho consult and pain management Scheduled for surgery today (2) Distal radius fracture, left: Code(s): S52.502A - Unspecified fracture of the lower end of left radius, initial encounter for closed fracture Status: Acute Assessment and Plan: Ortho consult and pain management Status post surgery, doing better (3) Fracture of ulnar styloid: Code(s): S52.613A - Displaced fracture of unspecified ulna styloid process, initial encounter for closed fracture Status: Acute Assessment and Plan: Ortho consult and pain management Status post surgery, doing better. (4) Venous insufficiency of both lower extremities: Code(s): I87.2 - Venous insufficiency (chronic) (peripheral) Status: Acute Assessment and Plan: Eliquis restarted. (5) Hypertension: Code(s): I10 - Essential (primary) hypertension Status: Acute Assessment and Plan: Stable on medications (6) Hypothyroidism determined by thyroid function test: Code(s): E03.9 - Hypothyroidism, unspecified; R94.6 - Abnormal results of thyroid function studies Status: Acute Assessment and Plan: Stable on med (7) A-fib: Qualifiers: Atrial fibrillation type: permanent Qualified Code(s): I48.21 - Permanent atrial fibrillation Code(s): I48.91 - Unspecified atrial fibrillation Status: Acute Assessment and Plan: Heart rate is controlled at present time. Eliquis restarted. Additional Plan Start physical therapy. Arrange for rehab. Subjective Date/time seen: 07/17/20 08:54 Interval history: Patient was seen during rounds today. No shortness of breath or chest pain. Pain under control. Mood stable. No new complaint. Review of Systems Review of Systems: All systems reviewed & are unremarkable except as noted in HPI and below (the history and physical exam) Exam Narrative: Exam Narrative: Exam Narrative: GENERAL: Uncomfortable-appearing, well-nourished, and in no acute distress. HEAD: Normocephalic, atraumatic. EYES: PERRL and EOMI. CHEST: Clear to auscultation. No respiratory distress. HEART: Regular rate and rhythm. Normal peripheral pulses. ABDOMEN: Soft, nontender, nondistended. EXTREMITIES: Left upper extremity status post surgery. Limited range of motion due to pain. Left hip with pain and limited ability to perform range of motion exercises. . Neurovascularly intact distal to injury. SKIN: Warm, dry, no rash. NEURO: No focal deficits. Alert and oriented x3. PSYCH: Normal mood and affect. Objective Data Vital Signs Vital Signs: Vital Signs - 24 hr 07/16/20 09:01 07/16/20 12:41 07/16/20 20:17 Temperature 36.4 C 36.4 C Pulse Rate 86 85 98 Respiratory Rate 20 24 H Blood Pressure 148/70 H 150/85 H Pulse Oximetry 95 99 07/16/20 20:32 07/16/20 20:47 07/16/20 21:02 Temperature Pulse Rate 107 H 112 H 103 H Respiratory Rate 17 16 22 H Blood Pressure 141/75 H 151/98 H 156/64 H Pulse Oximetry 93 93 93 07/16/20 21:17 07/16/20 21:32 07/16/20 21:55 Temperature 36.4 C Pulse Rate 116 H 107 H 94 Respiratory Rate 12 17 17 Blood Pressure 156/64 H 164/89 H 154/97 H Pulse Oximetry 95 93 96 07/16/20 22:01 07/16/20 22:10 07/16/20 22:17 Temperature 36.3 C L Pulse Rate 107 H 61 107 H Respiratory Rate 18 17 Blood Pressure 154/97 H Pulse Oximetry 98 96 07/16/20 22:30 07/16/20 22:47 07/16/20 22:54 Temperature 36.3 C L Pulse Rate 107 H Respiratory Rate 18 Blood Pressure 170/98 H Pulse Oximetry 98 98 98 07/16/20 23:47 07/17/20 00:00 07/17/20 04:00 Temperature 36.1 C L Pulse Rate 97 100 92 Respiratory Rate 16 Blood Pressure 152/90 H Pulse Oximetry 98
[2020-07-17] MEDS: ERGOCALCIFEROL 50,000 UNIT CAPSULE 50000 UNITS PO (08:55)
[2020-07-17] MEDS: LOSARTAN POTASSIUM 50 MG TABLET PO (08:56)
[2020-07-17] MEDS: SENNA/DOCUSATE SODIUM TABLET 2 TAB PO ×2 (08:56→16:03)
[2020-07-17] MEDS: polyethylene glycoL 3350 17 GM POWD.PACK PO (08:56)
--- NOTE | 2020-07-17 09:57 | PM.PNCARD ---
Progress Note: A&P Assessment and Plan (1) Preoperative cardiovascular examination: Code(s): Z01.810 - Encounter for preprocedural cardiovascular examination Status: Acute Assessment and Plan: Patient doing well thus far postoperatively. Continue home medical therapy. Resume systemic anticoagulation her atrial fibrillation 5 mg b.i.d. or as required from surgical perspective postoperatively. (2) A-fib: Qualifiers: Atrial fibrillation type: permanent Qualified Code(s): I48.21 - Permanent atrial fibrillation Code(s): I48.91 - Unspecified atrial fibrillation Status: Acute Assessment and Plan: Continue home medical therapy. No acute issues. Patient stable from cardiac perspective. Disposition per primary service. We will sign off. Patient to follow-up in the office in 1 month. (3) Recurrent falls: Code(s): R29.6 - Repeated falls Status: Acute Assessment and Plan: Had 2 falls in the past 6 months although 1 included head injury in February. I previously discussed candidacy for anticoagulation particularly if she has ongoing falls and potential need to discontinue in favor of aspirin. However, this will be addressed further as an outpatient unless new concerns arise in the interval period. At this time, I believe it is reasonable to resume her anticoagulation as above with further discussion as appropriate. This was discussed in detail with the patient and her daughter previously verbalized understanding. (4) Hypertension: Code(s): I10 - Essential (primary) hypertension Status: Acute Assessment and Plan: Elevated but fair control. Continue to monitor. Continue antihypertensive therapy. (5) Fracture of femoral neck, left, closed: Code(s): S72.002A - Fracture of unspecified part of neck of left femur, initial encounter for closed fracture Status: Acute Assessment and Plan: Per Orthopedic surgery. See above. Doing well post surgical repair. PT OT (6) Distal radius fracture, left: Code(s): S52.502A - Unspecified fracture of the lower end of left radius, initial encounter for closed fracture Status: Acute Assessment and Plan: Doing well post surgical repair. (7) Hypothyroidism determined by thyroid function test: Code(s): E03.9 - Hypothyroidism, unspecified; R94.6 - Abnormal results of thyroid function studies Status: Acute Assessment and Plan: Per primary service. (8) Chronic anticoagulation: Code(s): Z79.01 - prison (current) use of anticoagulants Status: Acute Assessment and Plan: Resume anticoagulation. Subjective Date/time seen: Date of Service: 07/17/20 09:57 Follow up for preoperative risk assessment, atrial fibrillation Feels well. Did well post left hip and and left wrist repair. Patient asymptomatic, no acute issues. Working with therapy this morning. Denies chest pain, shortness of breath, palpitations, or dizziness. Persistent atrial fibrillation, rate more elevated with activity otherwise acceptable. Patient requested I sign her left arm bandaged cast. She is in good spirits and denies pain, states she feels really well. Review of Systems Review of Systems: All systems reviewed & are unremarkable except as noted in HPI and below Constitutional: Constitutional: Reports as per HPI and Reports no additional constitutional complaints Eyes: Eyes: Reports as per HPI and Reports no additional eye complaints ENT: Reports system reviewed and no additional complaints, except as documented and Reports as per HPI Cardiovascular: Cardiovascular: Reports as per HPI, Reports no additional cardiovascular complaints, Denies chest pain, Denies diaphoresis, Reports pedal edema, Reports leg edema, Denies lightheadedness, Denies palpitations, Denies dyspnea and Denies dyspnea on exertion Respiratory: Respiratory: Reports as per HPI, Reports no additional respi
--- NOTE | 2020-07-17 10:52 | P.PNAN_ITS ---
Anes - Prog Note Post-Op Date/Time: 07/17/20 10:52 Cardiovascular status: normal Respiratory status: normal Airway patency: baseline Mental status: baseline Post-Op hydration status: normal Vital Signs: Last Vital Signs Temp 36.2 C L 07/17/20 08:00 Pulse 86 07/17/20 08:54 Resp 16 07/17/20 08:00 BP 132/70 07/17/20 08:00 Pulse Ox 96 07/17/20 08:00 Pain Score (VAS): 0 I/O: Intake & Output 07/16/20 07/17/20 07/17/20 23:59 07:59 15:59 Intake Total 737 571 1471 Output Total 40 240 Balance 955 09 9624 Laboratory Tests 07/17/20 05:21 07/17/20 05:21 07/16/20 07/17/20 07/17/20 03:30 05:21 05:21 WBC 10.0 RBC 4.20 Hgb 12.1 Hct 37.1 MCV 88.3 MCH 28.8 MCHC 32.6 RDW 12.9 Plt Count 187 MPV 10.6 H Immature Gran % (Auto) 0.6 H Neut % (Auto) 86.3 H Lymph % (Auto) 5.5 L Early % (Auto) 7.5 Eos % (Auto) 0.0 Baso % (Auto) 0.1 L Lymph # (Auto) 0.55 L Early # (Auto) 0.8 H Eos # (Auto) 0.0 Baso # (Auto) 0.0 Abs Immat Gran (auto) 0.06 H Absolute Neuts (auto) 8.7 H Absolute Nucleated RBC 0.0 Nucleated RBC % 0.0 Sodium 134 L Potassium 4.0 Chloride 102 Carbon Dioxide 28 Anion Gap 4 L BUN 16 Creatinine 0.70 Estim Creat Clear Calc 57 Estimated GFR > 60 Glucose 174 H Calcium 7.8 L SARS-CoV-2 RNA (RT-PCR) Negative Microbiology 07/15/20 11:58 Urine Tabares Port Urine Culture - Final Post-procedural complaints: none Patient Feedback: Patient satisfied with anesthetic care.
--- NOTE | 2020-07-17 12:00 | PM.PNORT ---
Progress Note: A&P Additional Plan Patient is postop day 1 after cemented bipolar hemiarthroplasty left hip and open reduction internal fixation of very comminuted three-part left distal radius fracture with ulnar styloid fracture. She is alert oriented careful in no discomfort. She had some discomfort transferring taking a few steps with the neal walker but tolerated this well in the sitting in the chair at this time. She has intact sensation in her left hand. She is using her fingers to hold pieces of paper with her left hand and I have cautioned her that I do not want her to use her left hand for anything whatsoever. I explained that I do not want her making a fist as that will load the multiple articular fragments. Her wound at the left hip is dry she has intact sensation and motor function in her left foot. Her drain is out. Her laboratory studies look fine. She is afebrile with stable vitals. She seems to be doing very well postoperative day 1 is tolerated the anesthesia very well. I understand that the memory care director is trying to arrange for transfer to the transitional care unit on Monday. Subjective Subjective Date/Time Seen: 07/17/20 12:00 Objective Data Vital Signs Vital Signs: Vital Signs - 24 hr 07/16/20 12:41 07/16/20 20:17 07/16/20 20:32 Temperature 36.4 C 36.4 C Pulse Rate 85 98 107 H Respiratory Rate 20 24 H 17 Blood Pressure 148/70 H 150/85 H 141/75 H Pulse Oximetry 95 99 93 07/16/20 20:47 07/16/20 21:02 07/16/20 21:17 Temperature Pulse Rate 112 H 103 H 116 H Respiratory Rate 16 22 H 12 Blood Pressure 151/98 H 156/64 H 156/64 H Pulse Oximetry 93 93 95 07/16/20 21:32 07/16/20 21:55 07/16/20 22:01 Temperature 36.4 C Pulse Rate 107 H 94 107 H Respiratory Rate 17 17 Blood Pressure 164/89 H 154/97 H Pulse Oximetry 93 96 07/16/20 22:10 07/16/20 22:17 07/16/20 22:30 Temperature 36.3 C L Pulse Rate 61 107 H Respiratory Rate 18 17 Blood Pressure 154/97 H Pulse Oximetry 98 96 98 07/16/20 22:47 07/16/20 22:54 07/16/20 23:47 Temperature 36.3 C L 36.1 C L Pulse Rate 107 H 97 Respiratory Rate 18 16 Blood Pressure 170/98 H 152/90 H Pulse Oximetry 98 98 98 07/17/20 00:00 07/17/20 04:00 07/17/20 04:04 Temperature 36.6 C Pulse Rate 100 92 95 Respiratory Rate 18 Blood Pressure 144/89 H Pulse Oximetry 98 07/17/20 08:00 07/17/20 08:54 Temperature 36.2 C L Pulse Rate 91 86 Respiratory Rate 16 Blood Pressure 132/70 Pulse Oximetry 96 Intake/Output Intake/Output: Intake & Output 07/14/20 07/15/20 07/16/20 07/17/20 23:59 23:59 23:59 23:59 Intake Total 5090 058 9063 Output Total 1250 965 440 Balance -190 -515 1272 Meds/Results Medications: Active Medications Generic Name Dose Route Start Last Admin Trade Name Freq PRN Reason Stop Dose Admin Acetaminophen 1,000 mg 07/15/20 12:00 07/17/20 05:32 Acetaminophen 500 Mg Tablet PO 1,000 mg Q6H ALEX Administration Apixaban 2.5 mg 07/17/20 09:00 07/17/20 08:54 Apixaban 2.5 Mg Tablet PO 07/31/20 09:01 2.5 mg Q12HR ALEX Administration Calcium Citrate 1 tablet 07/17/20 09:00 07/17/20 08:55 Calcium Citrate 315 Mg/Vitamin D 250 Units Tab PO 1 tablet BID ALEX Administration Ergocalciferol 50,000 unit 07/17/20 09:00 07/17/20 08:55 Ergocalciferol 50,000 Unit Capsule PO 07/20/20 09:01 50,000 unit QAM ALEX Administration Furosemide 20 mg 07/15/20 09:00 07/17/20 08:54 Furosemide 20 Mg Tablet PO 20 mg QAM ALEX Administration Cefazolin Sodium 1 gm in 50 mls @ 100 mls/hr 07/16/20 22:02 07/17/20 08:53 Ancef 1 Gm/D5w 50 Ml Pm IVPB 07/17/20 14:31 Infused Q8H ALEX Infusion Levothyroxine Sodium 75 mcg 07/15/20 09:00 07/17/20 05:33 Levothyroxine Sodium 75 Mcg Tablet PO 75 mcg DAILY@0630 ALEX Administration Losartan Potassium 50 mg 07/15/20 09:00 07/17/20 08:56 Losartan Potassium 50 Mg Tablet PO 50 mg DAILY ALEX Administra
--- NOTE | 2020-07-17 13:47 | PCPTNOTE ---
Attempted therapy session, Pt finishing up lunch requested therapist to come back in just a few minutes. Will attempt again.
[2020-07-18] VITALS (8 sets, daily range): BP systolic 142–146; BP diastolic 70–77; PULSE 65–96; RESP 14–16; TEMP 35.9–36.7; O2SAT 92–100
[2020-07-18] MEDS: ACETAMINOPHEN 500 MG TABLET 1000 MG PO ×5 (00:29→23:15)
[2020-07-18] MEDS: oxyCODONE HCL (*CRX) 2.5 MG TAB IR PO ×6 (03:13→23:15)
[2020-07-18] MEDS: LEVOTHYROXINE SODIUM 75 MCG TABLET PO (06:02)
[2020-07-18 09:00] LABS: Hematocrit 33.2 % (37.0-47.0); Hemoglobin 10.9 g/dL (12.0-15.0); Mean Corpuscular HGB Conc 32.8 g/dl (32-36); Mean Corpuscular Hemoglobin 29.4 pg (26-34); Mean Corpuscular Volume 89.5 fl (80-100); Mean Platelet Volume 10.3 fl (7.4-10.4); Platelet Count Result 186 k/mm3 (150-375); Red Blood Count 3.71 M/mm3 (4.2-5.4); Red Cell Distribution Width 13.3 % (11.5-14.5)
[2020-07-18 09:08] LABS: Anion Gap 3 mmol/L (8-16); Blood Urea Nitrogen 18 mg/dL (7-17); Carbon Dioxide 31 mmol/L (22-30); Chloride 102 mmol/L (98-107); Estimated CRCL calculation 57 ml/min; Estimated Glomerular Filt Rate > 60; Glucose 103 mg/dL (65-105); Magnesium 1.7 mg/dL (1.6-2.3); Potassium 3.7 mmol/L (3.4-5.0); Sodium 136 mmol/L (137-145)
[2020-07-18] MEDS: polyethylene glycoL 3350 17 GM POWD.PACK PO (09:13)
[2020-07-18] MEDS: ERGOCALCIFEROL 50,000 UNIT CAPSULE 50000 UNITS PO (09:13)
[2020-07-18] MEDS: FUROSEMIDE 20 MG TABLET PO (09:13)
[2020-07-18] MEDS: SENNA/DOCUSATE SODIUM TABLET 2 TAB PO ×2 (09:13→17:22)
[2020-07-18] MEDS: LOSARTAN POTASSIUM 50 MG TABLET PO (09:13)
[2020-07-18] MEDS: METOPROLOL SUCCINATE EXT REL 100 MG TABCR PO ×2 (09:13→20:00)
[2020-07-18] MEDS: APIXABAN 2.5 MG TABLET PO ×2 (09:13→20:01)
--- NOTE | 2020-07-18 12:48 | PM.PNCARD ---
Progress Note: A&P Assessment and Plan (1) Preoperative cardiovascular examination: Code(s): Z01.810 - Encounter for preprocedural cardiovascular examination Status: Acute Assessment and Plan: Patient doing well thus far postoperatively. Continue home medical therapy. Resume systemic anticoagulation her atrial fibrillation 5 mg b.i.d. or as required from surgical perspective postoperatively. Follow up in [address] Alicea as outpatient. pt planning to go to Rehab likely on Monday. (2) A-fib: Qualifiers: Atrial fibrillation type: permanent Qualified Code(s): I48.21 - Permanent atrial fibrillation Code(s): I48.91 - Unspecified atrial fibrillation Status: Acute Assessment and Plan: Continue home medical therapy. No acute issues. Patient stable from cardiac perspective. Disposition per primary service. HR reasonably controlled. (3) Hypertension: Code(s): I10 - Essential (primary) hypertension Status: Acute Assessment and Plan: Elevated but fair control. Continue to monitor. Continue antihypertensive therapy. (4) Fracture of femoral neck, left, closed: Code(s): S72.002A - Fracture of unspecified part of neck of left femur, initial encounter for closed fracture Status: Acute Assessment and Plan: Per Orthopedic surgery. See above. Doing well post surgical repair. PT OT (5) Distal radius fracture, left: Code(s): S52.502A - Unspecified fracture of the lower end of left radius, initial encounter for closed fracture Status: Acute Assessment and Plan: Doing well post surgical repair. (6) Hypothyroidism determined by thyroid function test: Code(s): E03.9 - Hypothyroidism, unspecified; R94.6 - Abnormal results of thyroid function studies Status: Acute Assessment and Plan: Per primary service. (7) Chronic anticoagulation: Code(s): Z79.01 - snf (current) use of anticoagulants Status: Acute Assessment and Plan: Resume anticoagulation. Subjective Date/time seen: Date of Service: 07/18/20 12:48 Follow up for atrial fibrillation No new issues overnight. No CP, palps, dizziness, SOB, N/V. eating well. Daughter at bedside. They are pleased with how things are going thus far. No other complaints period pain controlled. Review of Systems Review of Systems: All systems reviewed & are unremarkable except as noted in HPI and below Constitutional: Constitutional: Reports as per HPI and Reports no additional constitutional complaints Eyes: Eyes: Reports as per HPI and Reports no additional eye complaints ENT: Reports system reviewed and no additional complaints, except as documented and Reports as per HPI Cardiovascular: Cardiovascular: Reports as per HPI, Reports no additional cardiovascular complaints, Denies chest pain, Denies diaphoresis, Reports pedal edema, Reports leg edema, Denies lightheadedness, Denies palpitations, Denies dyspnea and Denies dyspnea on exertion Respiratory: Respiratory: Reports as per HPI, Reports no additional respiratory complaints, Denies dyspnea and Denies dyspnea on exertion Gastrointestinal: Gastrointestinal: Reports as per HPI, Reports no additional gastrointestinal complaints, Denies abdominal pain, Denies melena, Denies hematochezia, Denies heartburn, Denies nausea and Denies vomiting Genitourinary: Genitourinary: Reports as per HPI, Denies hematuria and Denies dysuria Musculoskeletal: Musculoskeletal: Reports no additional musculoskeletal complaints, Reports as per HPI, Reports arthralgias, Reports joint swelling and Reports stiffness Integumentary/Breasts: Skin/Breast: Reports system reviewed and no additional complaints, except as docu and Reports as per HPI Neurologic: Reports system reviewed and no additional complaints, except as documented, Reports as per HPI and Denies confusion Psychiatric: Psychiatric: Reports no additional psychiat
--- NOTE | 2020-07-18 14:07 | PM.IMPN ---
Progress Note: A&P Assessment and Plan (1) Fracture of femoral neck, left, closed: Code(s): S72.002A - Fracture of unspecified part of neck of left femur, initial encounter for closed fracture Status: Acute Assessment and Plan: S/p mechanical fall outside her home when picking up newspapers from the street. Xray of left hip/pelvis showed displaced left subcapital femoral neck fracture and CT of left wrist showed comminuted fracture of distal radius and avulsion fracture of the ulnar styloid. Dr. Barraza (Orthopedic Surgery) consulted. Patient POD 2 ORIF left radius and left hemiarthroplasty of hip. Pain well controlled. Awaiting placement to [facility]; hopes to discharge Monday pending reevaluation Post op care, pain management, PT/OT, DVT ppx per Orthopedic Surgery Monitor Hopefully discharge Monday (2) Distal radius fracture, left: Code(s): S52.502A - Unspecified fracture of the lower end of left radius, initial encounter for closed fracture Status: Acute Assessment and Plan: Please see above a/p (3) Fracture of ulnar styloid: Code(s): S52.613A - Displaced fracture of unspecified ulna styloid process, initial encounter for closed fracture Status: Acute Assessment and Plan: Please see above a/p (4) Venous insufficiency of both lower extremities: Code(s): I87.2 - Venous insufficiency (chronic) (peripheral) Status: Acute Assessment and Plan: Continue Eliquis at lowered dose per Ortho recommendations (5) Hypertension: Code(s): I10 - Essential (primary) hypertension Status: Acute Assessment and Plan: BP 140s sys continue home medications (6) Hypothyroidism determined by thyroid function test: Code(s): E03.9 - Hypothyroidism, unspecified; R94.6 - Abnormal results of thyroid function studies Status: Acute Assessment and Plan: TSH with reflex tomorrow Continue home levothyroxine (7) A-fib: Qualifiers: Atrial fibrillation type: permanent Qualified Code(s): I48.21 - Permanent atrial fibrillation Code(s): I48.91 - Unspecified atrial fibrillation Status: Acute Assessment and Plan: Follows HCG; following and appreciate recommendations. Rate controlled. Continue Eliquis at lowered dose per Ortho recommendations; rec resuming home dose as soon as possible Continue metoprolol Subjective Date/time seen: 07/18/20 14:07 Interval history: Patient is a 85 yo F with history of a-fib, HTN, venous insufficiency and hypothyroidism who is seen in follow up for left hip fracture, left distal radius and ulnar fracture POD 2 left hemiarthroplasty of hip and ORIF of left distal radius fracture per Dr. Barraza. Patient is doing well today. Pain is well controlled today. She does have some constipation. She has no other complaints for me at the moment. Denies f/c/s, headaches, dizziness, lightheadedness, cp/palpitations, sob/cough, n/v, abd pain, dysuria, hematuria, cloudy urine, calf pain Review of Systems Review of Systems: All systems reviewed & are unremarkable except as noted in HPI and below Exam Narrative: Exam Narrative: General: Patient resting supine in bed in no acute distress. HEENT: Normocephalic, EOMI, oral mucosa moist. Cardiovascular: irregularly irregular HR, normal rate. no murmur, rub, or gallop. Respiratory: Lungs clear to auscultation anterolateral lung ortiz. Non-labored breathing. Abdomen: Soft, non-tender, non-distended, bowel sounds present. Extremities: Peripheral pulses intact. b/l LE edema. NTTP b/l calves. varicose veins b/l LE. NVI left UE and LE distal to surgical sites. Left arm in cast and sling. Neuro
--- NOTE | 2020-07-18 15:48 | PM.PNORT ---
Progress Note: A&P Additional Plan Patient was sleeping but aroused well and is alert and oriented. She is in no distress. The nurse has to keep reminding her not to use the left hand and I have reiterated this to her as well. There is no swelling in her fingers. Her left hip dressing is dry and intact. Her hemoglobin is 10.9 which is the expected acute blood-loss anemia associated with her fractures and surgery. We have run Aaliyahquis at DVT prophylaxis dosing 2.5 mg twice daily. In the near future we will increase this to her atrial fibrillation prophylaxis dose of 5 mg twice daily. She seems very stable postoperatively and the plan is TRC on Monday. Subjective Subjective Date/Time Seen: 07/18/20 15:48 Objective Data Vital Signs Vital Signs: Vital Signs - 24 hr 07/17/20 15:57 07/17/20 19:47 07/17/20 19:59 Temperature 36.3 C L 37.2 C 37.2 C Pulse Rate 85 101 H 101 H Respiratory Rate 18 16 14 Blood Pressure 134/69 122/62 122/62 Pulse Oximetry 98 96 96 07/17/20 20:36 07/17/20 21:35 07/18/20 05:09 Temperature 36.0 C L Pulse Rate 101 H 89 Respiratory Rate 14 Blood Pressure 142/70 H Pulse Oximetry 98 95 07/18/20 05:11 07/18/20 06:00 07/18/20 09:13 Temperature 36.0 C L Pulse Rate 89 68 Respiratory Rate 14 Blood Pressure 142/70 H Pulse Oximetry 95 93 07/18/20 14:00 Temperature 36.7 C Pulse Rate 96 Respiratory Rate 16 Blood Pressure 145/77 H Pulse Oximetry 100 Intake/Output Intake/Output: Intake & Output 07/15/20 07/16/20 07/17/20 07/18/20 23:59 23:59 23:59 23:59 Intake Total 1753 733 5198 680 Output Total 1250 965 440 Balance -190 -515 2202 680 Meds/Results Medications: Active Medications Generic Name Dose Route Start Last Admin Trade Name Freq PRN Reason Stop Dose Admin Acetaminophen 1,000 mg 07/15/20 12:00 07/18/20 11:22 Acetaminophen 500 Mg Tablet PO 1,000 mg Q6H ALEX Administration Apixaban 2.5 mg 07/17/20 09:00 07/18/20 09:13 Apixaban 2.5 Mg Tablet PO 07/31/20 09:01 2.5 mg Q12HR ALEX Administration Calcium Citrate 1 tablet 07/17/20 09:00 07/18/20 10:13 Calcium Citrate 315 Mg/Vitamin D 250 Units Tab PO 1 tablet BID ALEX Administration Ergocalciferol 50,000 unit 07/17/20 09:00 07/18/20 09:13 Ergocalciferol 50,000 Unit Capsule PO 07/20/20 09:01 50,[address] [facility] Administration Furosemide 20 mg 07/15/20 09:00 07/18/20 09:13 Furosemide 20 Mg Tablet PO [address] [facility] Administration Levothyroxine Sodium 75 mcg 07/15/20 09:00 07/18/20 06:02 Levothyroxine Sodium 75 Mcg Tablet PO 75 mcg DAILY@0630 [facility] Administration Losartan Potassium 50 mg 07/15/20 09:00 07/18/20 09:13 Losartan Potassium 50 Mg Tablet PO 50 mg DAILY ALEX Administration Magnesium Hydroxide 30 ml 07/16/20 22:02 Magnesium Hydroxide Susp 30 Ml Udc PO BID PRN Constipation Metoprolol Succinate 100 mg 07/15/20 09:00 07/18/20 09:13 Metoprolol Succinate Ext Rel 100 Mg Tabcr PO [address] [facility] Administration Morphine Sulfate 2 mg 07/15/20 07:20 Morphine Sulfate (*Crx) 2 Mg/Ml Inj IV PUSH Q1H PRN Pain Rated 7-10 Naloxone HCl 0.1 mg 07/16/20 22:02 Naloxone Hcl 0.4 Mg/Ml Vial IV PUSH Q2M PRN Opiate Reversal Ondansetron HCl 4 mg 07/16/20 12:32 Ondansetron Inj 4 Mg/2 Ml Vial IV PUSH ONCE PRN Nausea Oxycodone HCl 2.5 mg 07/15/20 07:20 07/18/20 15:27 Oxycodone Hcl (*Crx) 2.5 Mg Tab Ir PO 2.5 mg Q4H ALEX Administration Oxycodone HCl 5 mg 07/15/20 07:20 Oxycodone Hcl (*Crx) 5 Mg Tab Ir PO Q4H PRN Pain Rated 7-10 Polyethylene Glycol 17 gm 07/17/20 09:00 07/18/20 09:13 Polyethylene Glycol 3350 17 Gm Powd.Pack PO 17 gm QAM ALEX Administration Senna/Docusate Sodium 2 tab 07/17/20 09:00 07/18/20 09:13 Senna/Docusate Sodium Tablet PO 2 tab BID ALEX Administration Radiology Results: ITS Impressions Chest X-Ray 06/23
[2020-07-19] MEDS: oxyCODONE HCL (*CRX) 2.5 MG TAB IR PO ×6 (02:57→23:25)
[2020-07-19] MEDS: ACETAMINOPHEN 500 MG TABLET 1000 MG PO ×4 (05:16→23:25)
[2020-07-19 05:57] LABS: Hematocrit 35.1 % (37.0-47.0); Hemoglobin 11.4 g/dL (12.0-15.0); Mean Corpuscular HGB Conc 32.5 g/dl (32-36); Mean Corpuscular Hemoglobin 29.6 pg (26-34); Mean Corpuscular Volume 91.2 fl (80-100); Mean Platelet Volume 10.3 fl (7.4-10.4); Platelet Count Result 207 k/mm3 (150-375); Red Blood Count 3.85 M/mm3 (4.2-5.4); Red Cell Distribution Width 13.5 % (11.5-14.5); White Blood Count 8.2 K/mm3 (4.5-10.0)
[2020-07-19 06:15] LABS: Anion Gap 1 mmol/L (8-16); Blood Urea Nitrogen 19 mg/dL (7-17); Calcium 8.3 mg/dL (8.4-10.2); Carbon Dioxide 34 mmol/L (22-30); Chloride 100 mmol/L (98-107); Estimated CRCL calculation 51 ml/min; Estimated Glomerular Filt Rate > 60; Glucose 94 mg/dL (65-105); Magnesium 1.7 mg/dL (1.6-2.3); Sodium 135 mmol/L (137-145)
[2020-07-19] MEDS: LEVOTHYROXINE SODIUM 75 MCG TABLET PO (06:45)
[2020-07-19 07:44] VITALS: PULSE 97; RESP 16; O2SAT 92
[2020-07-19 07:48] VITALS: BP 136/82
[2020-07-19] MEDS: FUROSEMIDE 20 MG TABLET PO (08:19)
[2020-07-19 08:20] VITALS: PULSE 91
[2020-07-19] MEDS: SENNA/DOCUSATE SODIUM TABLET 2 TAB PO ×2 (08:20→17:21)
[2020-07-19] MEDS: polyethylene glycoL 3350 17 GM POWD.PACK PO (08:20)
[2020-07-19] MEDS: APIXABAN 2.5 MG TABLET PO ×2 (08:20→20:12)
[2020-07-19] MEDS: LOSARTAN POTASSIUM 50 MG TABLET PO (08:20)
[2020-07-19] MEDS: ERGOCALCIFEROL 50,000 UNIT CAPSULE 50000 UNITS PO (08:20)
[2020-07-19] MEDS: METOPROLOL SUCCINATE EXT REL 100 MG TABCR PO ×2 (08:20→20:15)
[2020-07-19] MEDS: MAGNESIUM HYDROXIDE SUSP 30 ML UDC PO (11:42)
--- NOTE | 2020-07-19 14:06 | PM.IMPN ---
Progress Note: A&P Assessment and Plan (1) Fracture of femoral neck, left, closed: Code(s): S72.002A - Fracture of unspecified part of neck of left femur, initial encounter for closed fracture Status: Acute Assessment and Plan: S/p mechanical fall outside her home when picking up newspapers from the street. Xray of left hip/pelvis showed displaced left subcapital femoral neck fracture and CT of left wrist showed comminuted fracture of distal radius and avulsion fracture of the ulnar styloid. Dr. Barraza (Orthopedic Surgery) consulted. Patient POD 3 ORIF left radius and left hemiarthroplasty of hip. Pain well controlled. Awaiting placement to [facility]; hopes to discharge tomorrow pending reevaluation Post op care, pain management, PT/OT, DVT ppx per Orthopedic Surgery Monitor Hopefully discharge tomorrow (2) Distal radius fracture, left: Code(s): S52.502A - Unspecified fracture of the lower end of left radius, initial encounter for closed fracture Status: Acute Assessment and Plan: Please see above a/p (3) Fracture of ulnar styloid: Code(s): S52.613A - Displaced fracture of unspecified ulna styloid process, initial encounter for closed fracture Status: Acute Assessment and Plan: Please see above a/p (4) Venous insufficiency of both lower extremities: Code(s): I87.2 - Venous insufficiency (chronic) (peripheral) Status: Acute Assessment and Plan: Continue Eliquis at lowered dose per Ortho recommendations (5) Hypertension: Code(s): I10 - Essential (primary) hypertension Status: Acute Assessment and Plan: BP 130s sys continue home medications (6) Hypothyroidism determined by thyroid function test: Code(s): E03.9 - Hypothyroidism, unspecified; R94.6 - Abnormal results of thyroid function studies Status: Acute Assessment and Plan: TSH WNL Continue home levothyroxine (7) A-fib: Qualifiers: Atrial fibrillation type: permanent Qualified Code(s): I48.21 - Permanent atrial fibrillation Code(s): I48.91 - Unspecified atrial fibrillation Status: Acute Assessment and Plan: Follows HCG; they are following and appreciate recommendations. Rate controlled. Continue Eliquis at lowered dose per Ortho recommendations; rec resuming home dose as soon as possible Continue metoprolol Subjective Date/time seen: 07/19/20 14:06 Interval history: Patient is a 85 yo F with history of a-fib, HTN, venous insufficiency and hypothyroidism who is seen in follow up for left hip fracture, left distal radius and ulnar fracture POD 3 left hemiarthroplasty of hip and ORIF of left distal radius fracture per Dr. Barraza. Patient is doing well again today. Pain is well controlled today. She does have some constipation, but passing gas. She has no other complaints for me at the moment. Denies f/c/s, headaches, dizziness, lightheadedness, cp/palpitations, sob/cough, n/v, abd pain, dysuria, hematuria, cloudy urine, calf pain Review of Systems Review of Systems: All systems reviewed & are unremarkable except as noted in HPI and below Exam Narrative: Exam Narrative: General: Patient sitting upright in chair eating lunch in no acute distress. HEENT: Normocephalic, EOMI, oral mucosa moist. Cardiovascular: irregularly irregular HR, normal rate. no murmur, rub, or gallop. Respiratory: Lungs clear to auscultation anterolateral lung ortiz. Non-labored breathing. Abdomen: Soft, non-tender, non-distended, bowel sounds present. Extremities: Peripheral pulses intact. b/l LE edema. NTTP b/l calves. varicose veins b/l LE. NVI left UE and LE distal to surgical sites.
[2020-07-19 15:06] VITALS: BP 148/83; PULSE 97; RESP 16; TEMP 36.6; O2SAT 98
[2020-07-19 19:50] VITALS: BP 102/64; PULSE 99; RESP 14; TEMP 36.5; O2SAT 96
[2020-07-19 20:15] VITALS: PULSE 99
[2020-07-20] MEDS: oxyCODONE HCL (*CRX) 2.5 MG TAB IR PO ×3 (03:14→11:49)
[2020-07-20] MEDS: ACETAMINOPHEN 500 MG TABLET 1000 MG PO ×2 (05:54→11:49)
[2020-07-20] MEDS: LEVOTHYROXINE SODIUM 75 MCG TABLET PO (05:54)
[2020-07-20 06:27] VITALS: BP 148/91; PULSE 84; RESP 14; TEMP 36; O2SAT 96
[2020-07-20 08:57] VITALS: PULSE 84
[2020-07-20] MEDS: LOSARTAN POTASSIUM 50 MG TABLET PO (08:57)
[2020-07-20] MEDS: SENNA/DOCUSATE SODIUM TABLET 2 TAB PO (08:57)
[2020-07-20] MEDS: APIXABAN 2.5 MG TABLET PO (08:57)
[2020-07-20] MEDS: METOPROLOL SUCCINATE EXT REL 100 MG TABCR PO (08:57)
[2020-07-20] MEDS: FUROSEMIDE 20 MG TABLET PO (08:57)
[2020-07-20] MEDS: ERGOCALCIFEROL 50,000 UNIT CAPSULE 50000 UNITS PO (08:59)
[2020-07-20] MEDS: polyethylene glycoL 3350 17 GM POWD.PACK PO (08:59)
--- NOTE | 2020-07-20 12:08 | PM.PNORT ---
Progress Note: A&P Additional Plan POD 4 avss pain is well controlled, hip dressing is dry NVI, splint on hand is snug, min swelling to fingers, no numbness, pt is going to [facility] today, will cont. to follow while here, will kepp pt on 2.5mg of eliquis till monday then resume home dose Subjective Subjective Date/Time Seen: 07/20/20 12:08 Objective Data Vital Signs Vital Signs: Vital Signs - 24 hr 07/19/20 15:06 07/19/20 19:50 07/19/20 20:15 Temperature 36.6 C 36.5 C Pulse Rate 97 99 99 Respiratory Rate 16 14 Blood Pressure 148/83 H 102/64 Pulse Oximetry 98 96 07/20/20 06:27 07/20/20 08:57 Temperature 36.0 C L Pulse Rate 84 84 Respiratory Rate 14 Blood Pressure 148/91 H Pulse Oximetry 96 Intake/Output Intake/Output: Intake & Output 07/17/20 07/18/20 07/19/20 07/20/20 23:59 23:59 23:59 23:59 Intake Total 2642 1400 1440 540 Output Total 440 136 354 4699 Balance 2202 500 990 -660 Meds/Results Medications: Active Medications Generic Name Dose Route Start Last Admin Trade Name Freq PRN Reason Stop Dose Admin Acetaminophen 1,000 mg 07/15/20 12:00 07/20/20 11:49 Acetaminophen 500 Mg Tablet PO 1,000 mg Q6H ALEX Administration Apixaban 2.5 mg 07/17/20 09:00 07/20/20 08:57 Apixaban 2.5 Mg Tablet PO 07/31/20 09:01 2.5 mg Q12HR ALEX Administration Calcium Citrate 1 tablet 07/17/20 09:00 07/20/20 08:59 Calcium Citrate 315 Mg/Vitamin D 250 Units Tab PO 1 tablet BID ALEX Administration Furosemide 20 mg 07/15/20 09:00 07/20/20 08:57 Furosemide 20 Mg Tablet PO 20 mg QAM ALEX Administration Levothyroxine Sodium 75 mcg 07/15/20 09:00 07/20/20 05:54 Levothyroxine Sodium 75 Mcg Tablet PO 75 mcg DAILY@0630 ALEX Administration Losartan Potassium 50 mg 07/15/20 09:00 07/20/20 08:57 Losartan Potassium 50 Mg Tablet PO 50 mg DAILY ALEX Administration Magnesium Hydroxide 30 ml 07/16/20 22:02 07/19/20 11:42 Magnesium Hydroxide Susp 30 Ml Udc PO 30 ml BID PRN Administration Constipation Metoprolol Succinate 100 mg 07/15/20 09:00 07/20/20 08:57 Metoprolol Succinate Ext Rel 100 Mg Tabcr PO 100 mg Q12HR ALEX Administration Morphine Sulfate 2 mg 07/15/20 07:20 Morphine Sulfate (*Crx) 2 Mg/Ml Inj IV PUSH Q1H PRN Pain Rated 7-10 Naloxone HCl 0.1 mg 07/16/20 22:02 Naloxone Hcl 0.4 Mg/Ml Vial IV PUSH Q2M PRN Opiate Reversal Ondansetron HCl 4 mg 07/16/20 12:32 Ondansetron Inj 4 Mg/2 Ml Vial IV PUSH ONCE PRN Nausea Oxycodone HCl 2.5 mg 07/15/20 07:20 07/20/20 11:49 Oxycodone Hcl (*Crx) 2.5 Mg Tab Ir PO 2.5 mg Q4H ALEX Administration Oxycodone HCl 5 mg 07/15/20 07:20 Oxycodone Hcl (*Crx) 5 Mg Tab Ir PO Q4H PRN Pain Rated 7-10 Polyethylene Glycol 17 gm 07/17/20 09:00 07/20/20 08:59 Polyethylene Glycol 3350 17 Gm Powd.Pack PO 17 gm QAM ALEX Administration Senna/Docusate Sodium 2 tab 07/17/20 09:00 07/20/20 08:57 Senna/Docusate Sodium Tablet PO 2 tab BID ALEX Administration Radiology Results: ITS Impressions Chest X-Ray 07/14/20 21:01 IMPRESSION: 1. Mild atelectasis at the lung bases. 2. Cardiomegaly. Wrist X-Ray 07/14/20 21:05 IMPRESSION: 1. Comminuted fracture of distal radius. 2. Avulsion fracture of the ulnar styloid. Pelvis X-Ray 07/14/20 21:56 IMPRESSION: 1. Subcapital fracture of left femoral neck. 2. Mild osteoarthritis of the hips. Wrist CT 07/14/20 23:15 IMPRESSION: 1. Comminuted fracture of distal radius. 2. Avulsion fracture of the ulnar styloid. Hip X-Ray 07/15/20 14:28 IMPRESSION: 1. Mild right hip osteoarthritis. No acute osseous abnormality. Hip/Pelvis X-Ray 07/16/20 18:18 IMPRESSION: 1. Bipolar left hip hemiarthroplasty in near-anatomic alignment. Intraoperative X-Ray 07/16/20 20:23 IMPRESSION: 1. Comminuted fracture of distal radius in near-anatomic alignment stat
--- NOTE | 2020-07-20 13:45 | PM.DS ---
DS: Admitting Diagnosis Admitting Diagnosis Admitting Diagnosis: Left hip fracture, left radius fracture DS: Discharge Diagnosis Discharge Diagnosis (1) Fracture of femoral neck, left, closed: Code(s): S72.002A - Fracture of unspecified part of neck of left femur, initial encounter for closed fracture Status: Acute Assessment and Plan: S/p mechanical fall outside her home when picking up newspapers from the street. Xray of left hip/pelvis showed displaced left subcapital femoral neck fracture and CT of left wrist showed comminuted fracture of distal radius and avulsion fracture of the ulnar styloid. Dr. Barraza (Orthopedic Surgery) consulted. Patient POD 4 ORIF left radius and left hemiarthroplasty of hip. Pain well controlled on current regimen. Okay for discharge to [facility] from Ortho standpoint Post op care, pain management, PT/OT, DVT ppx per Orthopedic Surgery discharge today to [facility] F/u with Ortho (2) Distal radius fracture, left: Code(s): S52.502A - Unspecified fracture of the lower end of left radius, initial encounter for closed fracture Status: Acute Assessment and Plan: Please see above a/p (3) Fracture of ulnar styloid: Code(s): S52.613A - Displaced fracture of unspecified ulna styloid process, initial encounter for closed fracture Status: Acute Assessment and Plan: Please see above a/p (4) Venous insufficiency of both lower extremities: Code(s): I87.2 - Venous insufficiency (chronic) (peripheral) Status: Acute Assessment and Plan: Continue Eliquis at lowered dose per Ortho recommendations (resume normal dose on morning of 07/24) (5) Hypertension: Code(s): I10 - Essential (primary) hypertension Status: Acute Assessment and Plan: BP 140s sys continue home medications (6) Hypothyroidism determined by thyroid function test: Code(s): E03.9 - Hypothyroidism, unspecified; R94.6 - Abnormal results of thyroid function studies Status: Acute Assessment and Plan: TSH WNL Continue home levothyroxine (7) A-fib: Qualifiers: Atrial fibrillation type: permanent Qualified Code(s): I48.21 - Permanent atrial fibrillation Code(s): I48.91 - Unspecified atrial fibrillation Status: Acute Assessment and Plan: Follows HCG; they are following and appreciate recommendations. Rate controlled. Continue Eliquis at lowered dose per Ortho recommendations; rec resuming home dose as soon as possible Continue metoprolol DS: Summary Hospital Course Reason for hospitalization: Left hip fracture, left radius fracture Hospital Course: Date of arrival: 07/15/20 Date of discharge: 07/20/20 Patient is a 85 yo F with history of a. 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 While in the ED, left hip/pelvis xray showed subcapital fracture of the left femoral neck and left wrist fracture showed comminuted fracture of the distal radius and avulsion fracture of the ulnar styloid. Dr. Barraza was consulted by ED provider. Patient admitted under this setting. Please see H&P for further details. Patient was admitted to the hospitalist service for further management/treatment. Patient was given pain control with narcotics as needed for pain. Dr. Barraza consulted Cardiology for preoperative risk assessment; no further invasive testing preoperatively was indicated per Cardiology and it was felt patient is optimized form a cardiac perspective. Patient underwent a ORIF of left distal radius and left hip arthroplast
[2020-07-20 14:29] VITALS: BP 137/74; PULSE 94; RESP 16; TEMP 35.7; O2SAT 98
== END 2020-07-20 14:39 | DRG 522 ==
LOC: ANHED 21:36 → ANH3MED 22:56
PROVIDERS: Internal Medicine; Orthopaedic Surgery; Physician Assistant; Admitting Provider Family Medicine; Emergency Provider Emergency Medicine; PCP Family Medicine; Visit Provider Physician Assistant
PROC: 0SRS0J9 Replacement of Left Hip Joint, Femoral Surface with Synthetic Substitute, Cemented, Open Approach (ICD-10-PCS; CPT 27125; principal; 2020-07-16 15:00)
PROC: 0SRS0J9 Replacement of Left Hip Joint, Femoral Surface with Synthetic Substitute, Cemented, Open Approach (ICD-10-PCS; CPT 25575; 2020-07-16 15:00)
DX: S72.002A Fracture of unspecified part of neck of left femur, initial encounter for closed fracture (principal); S52.502A Unspecified fracture of the lower end of left radius, initial encounter for closed fracture; S52.613A Displaced fracture of unspecified ulna styloid process, initial encounter for closed fracture; I48.21 Permanent atrial fibrillation; Z20.822 Contact with and (suspected) exposure to COVID-19; I87.2 Venous insufficiency (chronic) (peripheral); E03.9 Hypothyroidism, unspecified; R94.6 Abnormal results of thyroid function studies; R32 Unspecified urinary incontinence; W19.XXXA Unspecified fall, initial encounter; Z85.038 Personal history of other malignant neoplasm of large intestine; Z85.89 Personal history of malignant neoplasm of other organs and systems; R29.6 Repeated falls
CPT/HCPCS: 29125; 36415; 51702; 71045; 72170; 73110; 73200; 73501; 73502; 80048; 80053; 81001; 82306; 83735; 84443; 85025; 85027; 85610; 85730; 86850; 86900; 86901; 87086; 88307; 88311; 93005; 94667; 94668; 96374; 97110; 97116; 97161; 97165; 97530; 97535; 99285; A9270; C1713; C1776; C9803; J0171; J0330; J0690; J0696; J1100; J2270; J2405; J2704; J2795; J3010; J3370; J7030; J7120; U0003; U0005

== ENCOUNTER 2020-07-20 14:54 | IRF | payer MEDICARE, SELFPAY ==
--- NOTE | ~2020-07-20 | XR_ITS ---
EXAMINATION: XR wrist LT min 3V EXAM DATE: 07/29/2020 12:32 INDICATION: Recent ORIF. Left wrist fracture. Follow-up. TECHNIQUE: Frontal, oblique, lateral projections left wrist. Comparison is made to prior examination from 07/14/2020. FINDINGS: The left wrist, forearm are in a cast. There is a volar orthopedic plate bridging the acut e radial distal metaphyseal fracture which is in anatomic alignment. There is an ulnar styloid base a vulsion, essentially nondisplaced. Soft tissue is obscured by the cast. Difficult to identify healing process through the cast. IMPRESSION: 1. Casted internally fixed left distal radial metaphyseal fracture. 2. Ulnar styloid base avulsion. Reviewed, dictated and finalized at location B. RSPORTS TECHNICIAN
--- NOTE | 2020-07-20 14:55 | ADMGEN ---
This patient, Jossy Rasheed, was admitted to [facility] Room 225-02. Patient/family oriented to hospital policies and general routines including ID bracelet, bed and alarms, visiting hours, pain management, procedures, bathroom and other care routines, personal items, smoking policy, room service/diet, and visiting hours. Information on how to activate the Rapid Response Team has been discussed. Patient/Family are encouraged to report perceived risks to care and to ask questions if they do not understand what they are told or what they should do. patient was transported via bed from [address] [place] [id number] (in house transfer), grand daughter is with her. pleasant and no c/o pain
[2020-07-20 15:00] VITALS: BP 139/78; PULSE 122; RESP 18; TEMP 37; O2SAT 98; BMI 33.2
[2020-07-20] MEDS: ACETAMINOPHEN 500 MG TABLET 1000 MG PO (17:24)
[2020-07-20 20:40] VITALS: PULSE 96; RESP 16; O2SAT 96
[2020-07-20 21:40] VITALS: PULSE 100
[2020-07-20] MEDS: METOPROLOL SUCCINATE EXT REL 100 MG TABCR PO (21:40)
[2020-07-20] MEDS: APIXABAN 2.5 MG TABLET PO (21:40)
[2020-07-20 22:00] VITALS: BP 130/55; PULSE 96; RESP 16; TEMP 36.4; O2SAT 96
[2020-07-21] VITALS (7 sets, daily range): BP systolic 91–165; BP diastolic 43–71; PULSE 57–105; RESP 16–18; TEMP 36–36.6; O2SAT 94–99; BMI 33.2
[2020-07-21] MEDS: ACETAMINOPHEN 500 MG TABLET 1000 MG PO ×4 (01:51→23:01)
[2020-07-21] MEDS: LEVOTHYROXINE SODIUM 75 MCG TABLET PO (05:32)
[2020-07-21 05:37] LABS: Basophils Percent Auto 0.6 % (0.2-1.2); Eosinophils Absolute Auto 0.4 K/mm3 (0-0.3); Eosinophils Percent Auto 6.6 % (0-4.4); Hematocrit 33.9 % (37.0-47.0); Hemoglobin 11.1 g/dL (12.0-15.0); Immature Granulocyte Absolute 0.02 K/mm3 (0.00-0.031); Immature Granulocyte Percent A 0.3 % (0-0.5); Lymphocytes Percent Auto 22.4 % (18.3-44.2); Mean Corpuscular HGB Conc 32.7 g/dl (32-36); Mean Corpuscular Hemoglobin 29.1 pg (26-34); Mean Platelet Volume 10.2 fl (7.4-10.4); Monocytes Absolute Auto 0.7 K/mm3 (0.1-0.6); Monocytes Percent Auto 11.4 % (2.6-8.5); Neutrophils Absolute Auto 3.7 K/mm3 (1.3-6.7); Neutrophils Percent Auto 58.7 % (45.5-73.1); Platelet Count Result 251 k/mm3 (150-375); Red Blood Count 3.81 M/mm3 (4.2-5.4); Red Cell Distribution Width 13.1 % (11.5-14.5); White Blood Count 6.2 K/mm3 (4.5-10.0)
[2020-07-21 05:49] LABS: Anion Gap 1 mmol/L (8-16); Blood Urea Nitrogen 19 mg/dL (7-17); Calcium 8.2 mg/dL (8.4-10.2); Carbon Dioxide 33 mmol/L (22-30); Chloride 100 mmol/L (98-107); Estimated CRCL calculation 49 ml/min; Estimated Glomerular Filt Rate 60; Glucose 106 mg/dL (65-105); Sodium 134 mmol/L (137-145)
[2020-07-21] MEDS: FUROSEMIDE 20 MG TABLET PO (08:08)
[2020-07-21] MEDS: LOSARTAN POTASSIUM 50 MG TABLET PO (08:08)
[2020-07-21] MEDS: APIXABAN 2.5 MG TABLET PO ×2 (08:08→20:43)
[2020-07-21] MEDS: METOPROLOL SUCCINATE EXT REL 100 MG TABCR PO ×2 (08:08→20:43)
--- NOTE | 2020-07-21 14:43 | PCNSR ---
On 07/21/20, the student, Arlin Mcwilliams, provided care and completed [facility] documentation on this patient. I have reviewed the student's documentation and agree with the findings.
--- NOTE | 2020-07-21 15:26 | WPDREHABHP ---
H&P: HPI History of Present Illness Date/Time: 07/21/20 15:26 Chief Complaint: subcapital fracture of left femur neck, intra-articular left distal radius fracture with ulnar styloid fracture as well Narrative: Jossy Rasheed is a 85 year old female HISTORY OF PRESENT ILLNESS: 85 years old right-handed female admitted to the rehab floor with primary rehab impairment category of orthopedic that is lower extremity fracture and etiological diagnosis of subcapital fracture of left femoral neck patient was seen [id number] on July 21, 2020 at 12 noon #H/P: 85 years old right-handed female presented to [facility] Emergency Room on July 14, 2020 subsequent to a fall the patient medical history was significant for permanent atrial fibrillation on Eliquis 5 mg twice a day for stroke prophylaxis, bladder incontinence, colon cancer, hypothyroidism, venous insufficiency of both lower extremities, and vulvar cancer. Most recent echocardiogram revealed severe enlargement of the atrium but an ejection fraction of 66%. The patient was picking up a newspaper when she lost her balance and fell onto her left side. She fell directly onto her hip and onto her outstretched hand. She complained of pain in the left hip and wrist. She was on Eliquis due to AFib as mentioned above and EKG in the ER showed atrial fibrillation. Imaging revealed a comminuted three-part intra-articular left distal radius fracture with ulnar styloid fracture with intra-articular displacement and a displaced left subcapital femur neck fracture with mild osteoarthritis of the hips. Preoperatively lab work was significant for leukocytosis, CANDACE, hyperglycemia, hyponatremia, hypocalcemia, hypoproteinemia, and hypoalbuminemia. On July 16, 2020 the patient underwent a left cemented bipolar hemiarthroplasty and open reduction internal fixation of left distal radius fracture. He has a sling to her left upper extremity and is nonweightbearing on 8. On June 27, 2020 the patient is started Eliquis 2.5 mg twice daily for DVT prophylaxis postoperatively. The patient will continue on Eliquis 2.5 b.i.d. until July 31, 2020. She will need to follow-up with egg tester in 1 month. #COVID: The patient has not traveled outside the [place] or had contact with someone who is ill that has traveled outside the [place] in the past 21 days. The patient has not traveled to an area of the [place] that is experiencing known transmission of the Coronavirus and has not had close personal contact with anyone that has. The patient does not have a fever. The patient is not experiencing lower respiratory illness symptoms. COVID test was negative on July 16, 2020 # therapy was initiated at the acute care facility and the patient was transferred to us from [facility] on July 20, 2020 FALLS OR SURGERIES: the patient has had major surgery in the last 100 days that is on July 16, 2020. The patient has had 3 falls in the past year. The patient has had 1 fall with injury in the past year. PAST MEDICAL HISTORY: Atrial fibrillation, bladder incontinence, colon cancer, hypothyroidism, venous insufficiency of both lower extremities, and cancer of the vulva PAST SURGICAL HISTORY: CT colectomy SOCIAL HISTORY: the patient lives alone in a 1 story home with 1 step to enter. The patient was independent in all ADLs and IADLs as with no device prior to this hospitalization. The patient has 2 daughters and sister that are able to assist her at home following discharge from the . Never smoked, never used alcohol never used drugs FAMILY HISTORY: mother with carcinoma of colon father with Alzheimer's disease. PRIOR LEVEL OF FUNCTION: Eating was [INDEPENDENT] Oral Care was [INDEPENDENT] Toileting Hygiene was [INDEPENDENT] Shower/Bathing was [INDEPENDENT] Upper Body Dressing was [INDEPENDENT] Lower Body Dressing was [INDEPENDENT] Donning/[place] Footwear was [INDEPENDENT] Rolling Left and Right was [INDEPEN
--- NOTE | 2020-07-21 16:37 | PCPTNOTE ---
Jossy Rasheed was evaluated for a neal cane on 07/21/2020 by this physical therapist. The neal cane will resolve patient's mobility limitations and will be used for ADL's within the home. The patient can safely use the neal cane. ?The neal cane will resolve the patient?s mobility deficits, including deficits with balance, endurance, strength, and NWBing L UE.
[2020-07-22] VITALS (8 sets, daily range): BP systolic 89–142; BP diastolic 47–78; PULSE 48–95; RESP 16–20; TEMP 36–36.8; O2SAT 94–98
[2020-07-22] MEDS: LEVOTHYROXINE SODIUM 75 MCG TABLET PO (05:52)
[2020-07-22] MEDS: ACETAMINOPHEN 500 MG TABLET 1000 MG PO ×3 (05:52→17:30)
[2020-07-22] MEDS: METOPROLOL SUCCINATE EXT REL 100 MG TABCR PO ×2 (08:28→21:23)
[2020-07-22] MEDS: LOSARTAN POTASSIUM 50 MG TABLET PO (08:30)
[2020-07-22] MEDS: FUROSEMIDE 20 MG TABLET PO (08:30)
[2020-07-22] MEDS: APIXABAN 2.5 MG TABLET PO ×2 (08:31→21:23)
--- NOTE | 2020-07-22 10:46 | RPD ---
INDIVIDUALIZED PLAN OF CARE FOR Jossy Rasheed Brief Synthesis of Pre-Admission Screen, Post-Admission Evaluation and Therapy Evaluations: The patient presents to rehab with a subcapital fracture of left femoral neck and left wrist fracture. Comorbidities include Atrial fibrillation with chronic anticogulation (eliquis 5 mg BID), recurrent falls, left distal radius fracture, ulnar styloid fracture, venous insufficiency both lower extremities, bladder incontinence, hypertension, hypothyroidism, anemia, hyponatremia, leukocytosis, CANDACE, hyperglycemia, hypocalcemia, hypoproteinemia, and hypoalbuminemia. The complexity of the patient's medical management, nursing, and therapy needs require an inpatient rehab hospital stay with a physician-led interdisciplinary team approach. The patient?s needs will be best met in an intensive program vs. at a lower level of care. The patient requires physician services for medical oversight, management of postop complications in setting of present comorbidities, and pain management. She will be followed at least three times a week by the rehabilitation physician. Orthopedics may see the patient at the frequency of their discretion. Labs will be drawn to monitor blood counts and electrolytes periodically. The patient requires nursing services for DVT prophylactics, infection protection, medication management and education, pressure relief, and wound care. Prior to admission, the patient was completely independent in all regards, with no device. Deficits include:24-Hour Rehab Nursing Care, Nutrition Services, Occupational Therapy, Physical Therapy, Physician, Apartment Leasing Consultant, and Wound Care. Apartment Leasing Consultant/Case Management for: Discharge Planning and Patient/Family Counseling Physical Therapy: 5 days per week for 90 minutes. Treatments may include: Therapeutic Exercise, Gait Training, Neuromuscular Re-education, Transfer Training, Community Reintegration, Bed Mobility, Patient/Family Education, Wheelchair Mobility Group Therapy/Concurrent Therapy Rationales: -Improve attention span during functional activities in a distracted environment. -Enhance problem solving and/or adequate judgment skills during functional activities in a distracted environment. -Promote increased safety awareness in a distracted environment to reduce fall risk with functional tasks, transfers, and ambulation to allow a more safe, self-sufficient return to the home environment. -Improve dynamic balance skills to promote safety and independence with functional activities in a distracted environment for maximum gain. Occupational Therapy: 5 days per week for 90 minutes. Treatments may include: Therapeutic Exercise, Therapeutic Activity, Cognitive Training, Self-Care Transfer Training, Community Reintegration, Home Management, Patient/Family Education, Wheelchair Mobility Training, Energy Conservation Training Group Therapy/Concurrent Therapy Rationales: -Allow therapist to observe and teach generalization and carry-over of skills learned in individual therapy. -Enhance problem solving and sequencing skills during therapeutic activities in a distracted environment. -Promote increased safety awareness in a realistic setting to reduce fall risk with functional tasks due to visual and verbal distractions. -Increase functional level with ADLs, ADL transfers and use of adaptive equipment through therapeutic activities with others while promoting safety to allow a more safe, self-sufficient return home. Medical Prognosis: Good Anticipated Length of Stay: 14 days Rehab Goals: Eating Goal: 06-Independent Oral Hygiene Goal: 06-Independent Toileting Hygiene Goal: 06-Independent Shower/Bathe Self Goal: 04-Supervision or Touching Assistance Upper Body Dressing Goal: 06-Independent Lower Body Dressing Goal: 06-Independent Putting On/Taking Off Footwear Goal: 04-Supervision or Touching Assistance Rolling Left and Right Goal: 06-Independent Sit to Lying Goal: 06-Independent L
--- NOTE | 2020-07-22 16:54 | WPDNEURORHBP ---
Subjective Date/time seen: 07/22/20 16:54 85 years old right-handed female with subcapital fracture of left femur neck in addition to multiple comorbid conditions as outlined particularly 1. Atrial fibrillation 2. Bladder dysfunction 3. Hypothyroidism 4. Venous insufficiency of both lower extremities, remains stable with blood pressure somewhat low that is 100/50 but afebrile no change in the medications since yesterday, lab yesterday revealed WBC 6.2 hemoglobin 11.1 and platelet count of 251 Review of Systems Review of Systems: All systems reviewed & are unremarkable except as noted in HPI and below Functional Status Ambulation Ability Ability to Ambulate 10 Feet: Minimum Assistance X 1 Ambulation Assistive Devices: Cane, Tee Exam Const: General: comfortable Nutritional Appearance: overweight Limitations: other limitations ( for hip fracture) Eyes: General: appearance normal, both eyes and all related structures Visual Ortiz: normal visual ortiz by confrontation Alignment and Position: alignment normal Periorbital: periorbital findings normal Eyelids: eyelids normal Conjunctivae: conjunctivae normal Sclera: sclerae normal Cornea: corneas normal Pupils: Equal, round and reactive pupils present EOM: EOMs intact bilaterally Direct Ophthalmoscopy: normal light reflex Neck: Neck: full ROM Resp: Effort & Inspection: normal respiratory effort Auscultation: clear to auscultation bilaterally Cardio: Rate: regular rate Neuro: General: patient oriented x3 Cranial nerves: Yes CN's II-XII intact bilaterally Psych: Appearance: grossly normal Objective Data Vital Signs Vital Signs: Vital Signs - 24 hr 07/21/20 20:42 07/21/20 20:43 07/21/20 22:00 Temperature 36.6 C 36.1 C L Pulse Rate 86 86 83 Respiratory Rate 16 16 Blood Pressure 116/60 140/71 Pulse Oximetry 95 97 07/22/20 06:00 07/22/20 08:00 07/22/20 08:28 Temperature 36.0 C L Pulse Rate 84 88 88 Respiratory Rate 16 16 Blood Pressure 142/78 H Pulse Oximetry 96 96 07/22/20 12:54 07/22/20 13:43 07/22/20 14:00 Temperature 36.3 C L 36.8 C Pulse Rate 48 L 92 91 Respiratory Rate 18 18 Blood Pressure 89/47 L 100/50 L 100/50 L Pulse Oximetry 94 98 96 Intake/Output Intake/Output: Intake & Output 07/19/20 07/20/20 07/21/20 07/22/20 23:59 23:59 23:59 23:59 Intake Total 240 720 720 Balance 240 720 720 Meds/Results Medications: Active Medications Generic Name Dose Route Start Last Admin Trade Name Jameel PRN Reason Stop Dose Admin Acetaminophen 1,000 mg 07/20/20 18:00 07/22/20 11:55 Acetaminophen 500 Mg Tablet PO 1,000 mg Q6HR ALEX Administration Apixaban 2.5 mg 07/20/20 21:00 07/22/20 08:31 Apixaban 2.5 Mg Tablet PO 07/23/20 21:01 2.5 mg Q12HR ALEX Administration Apixaban 5 mg 07/24/20 09:00 Apixaban 5 Mg Tablet PO Q12HR ALEX Furosemide 20 mg 07/21/20 09:00 07/22/20 08:30 Furosemide 20 Mg Tablet PO 20 mg QAM ALEX Administration Levothyroxine Sodium 75 mcg 07/21/20 06:30 07/22/20 05:52 Levothyroxine Sodium 75 Mcg Tablet PO 75 mcg DAILY@0630 ALEX Administration Losartan Potassium 50 mg 07/21/20 09:00 07/22/20 08:30 Losartan Potassium 50 Mg Tablet PO 50 mg DAILY ALEX Administration Metoprolol Succinate 100 mg 07/20/20 21:00 07/22/20 08:28 Metoprolol Succinate Ext Rel 100 Mg Tabcr PO 100 mg Q12HR ALEX Administration Oxycodone HCl 2.5 mg 07/20/20 16:04 Oxycodone Hcl (*Crx) 2.5 Mg Tab Ir PO Q4H PRN Pain Rated 7-10 Progress Note: A&P Assessment and Plan (1) Chronic anticoagulation: Code(s): Z79.01 - intermediate (current) use of anticoagulants Status: Acute (2) Preoperative cardiovascular examination: Code(s): Z01.810 - Encounter for preprocedural cardiovascular examination Status: Acute (3) Recurrent falls: Code(s): R29.6 - Repeated falls Status: Acute (4) Fracture of femoral neck, left, clos
[2020-07-23] MEDS: LEVOTHYROXINE SODIUM 75 MCG TABLET PO (05:40)
[2020-07-23 05:41] VITALS: BP 142/71; PULSE 93; RESP 16; TEMP 36.1; O2SAT 94
[2020-07-23] MEDS: ACETAMINOPHEN 500 MG TABLET 1000 MG PO ×4 (05:41→23:19)
[2020-07-23] MEDS: LOSARTAN POTASSIUM 50 MG TABLET PO (08:41)
[2020-07-23] MEDS: FUROSEMIDE 20 MG TABLET PO (08:41)
[2020-07-23] MEDS: APIXABAN 2.5 MG TABLET PO ×2 (08:41→20:35)
[2020-07-23 08:42] VITALS: PULSE 93
[2020-07-23] MEDS: METOPROLOL SUCCINATE EXT REL 100 MG TABCR PO ×2 (08:42→20:35)
[2020-07-23 14:00] VITALS: BP 92/54; PULSE 88; RESP 16; TEMP 36.8; O2SAT 97
[2020-07-23 20:26] VITALS: BP 130/62; PULSE 82; RESP 16; TEMP 35.8; O2SAT 97
[2020-07-23 20:35] VITALS: PULSE 82
[2020-07-24] VITALS (7 sets, daily range): BP systolic 109–136; BP diastolic 49–68; PULSE 77–84; RESP 18–20; TEMP 35.9–36.4; O2SAT 95–99
[2020-07-24] MEDS: ACETAMINOPHEN 500 MG TABLET 1000 MG PO ×5 (05:28→23:47)
[2020-07-24] MEDS: LEVOTHYROXINE SODIUM 75 MCG TABLET PO (05:28)
[2020-07-24] MEDS: LOSARTAN POTASSIUM 50 MG TABLET PO (08:49)
[2020-07-24] MEDS: FUROSEMIDE 20 MG TABLET PO (08:49)
[2020-07-24] MEDS: METOPROLOL SUCCINATE EXT REL 100 MG TABCR PO ×2 (08:49→21:22)
[2020-07-24] MEDS: APIXABAN 5 MG TABLET PO ×2 (08:49→21:23)
[2020-07-24] MEDS: oxyCODONE HCL (*CRX) 2.5 MG TAB IR PO (13:29)
--- NOTE | 2020-07-24 14:03 | WPDNEURORHBP ---
Subjective Date/time seen: 07/24/20 14:03 85 years old right-handed female with subcapital fracture of left femur neck in addition to multiple comorbid condition as mentioned before particular to mention again atrial fibrillation, bladder dysfunction ,venous insufficiency of both lower extremities, no new lab also remains stable with temp of 35.9? pulse 77 respiration 18 pulse ox 99 on room air blood pressure 109/49 Review of Systems Review of Systems: All systems reviewed & are unremarkable except as noted in HPI and below Functional Status Ambulation Ability Ability to Ambulate 10 Feet: Contact Guard Ability to Ambulate 50 Feet With 2 Turns: Contact Guard Ambulation Assistive Devices: Cane, Tee Exam Const: General: cooperative, healthy appearing, no acute distress, well developed, alert and awake Nutritional Appearance: average body habitus and overweight Orientation/consciousness: patient oriented x3 HENMT: Head: normocephalic General nose exam: Normal external nose present and No nasal discharge present Face and sinus: normal facial exam Mouth: Yes Normal oral and palatal mucosa present Eyes: General: appearance normal, both eyes and all related structures Eyelids: eyelids normal Conjunctivae: conjunctivae normal Sclera: sclerae normal Cornea: corneas normal Pupils: Equal, round and reactive pupils present EOM: EOMs intact bilaterally Direct Ophthalmoscopy: normal light reflex Neck: Neck: full ROM Resp: Effort & Inspection: normal respiratory effort Cardio: Rate: regular rate GI: Auscultation: normal bowel sounds Neuro: General: patient oriented x3 Cranial nerves: Yes CN's II-XII intact bilaterally Cognition (Neuro): normal cognition Speech: normal speech Psych: Appearance: grossly normal Objective Data Vital Signs Vital Signs: Vital Signs - 24 hr 07/23/20 20:26 07/23/20 20:35 07/24/20 04:56 Temperature 35.8 C L 35.9 C L Pulse Rate 82 82 77 Respiratory Rate 16 18 Blood Pressure 130/62 109/49 L Pulse Oximetry 97 99 07/24/20 08:00 07/24/20 08:49 Temperature Pulse Rate 77 77 Respiratory Rate 18 Blood Pressure Pulse Oximetry 99 Intake/Output Intake/Output: Intake & Output 07/21/20 07/22/20 07/23/20 07/24/20 23:59 23:59 23:59 23:59 Intake Total 967 674 6170 480 Balance 548 356 8556 480 Meds/Results Medications: Active Medications Generic Name Dose Route Start Last Admin Trade Name Freq PRN Reason Stop Dose Admin Acetaminophen 1,000 mg 07/20/20 18:00 07/24/20 12:10 Acetaminophen 500 Mg Tablet PO 1,000 mg Q6HR ALEX Administration Apixaban 5 mg 07/24/20 09:00 07/24/20 08:49 Apixaban 5 Mg Tablet PO 5 mg Q12HR ALEX Administration Furosemide 20 mg 07/21/20 09:00 07/24/20 08:49 Furosemide 20 Mg Tablet PO 20 mg QAM ALEX Administration Levothyroxine Sodium 75 mcg 07/21/20 06:30 07/24/20 05:28 Levothyroxine Sodium 75 Mcg Tablet PO 75 mcg DAILY@0630 ALEX Administration Losartan Potassium 50 mg 07/21/20 09:00 07/24/20 08:49 Losartan Potassium 50 Mg Tablet PO 50 mg DAILY ALEX Administration Metoprolol Succinate 100 mg 07/20/20 21:00 07/24/20 08:49 Metoprolol Succinate Ext Rel 100 Mg Tabcr PO 100 mg Q12HR ALEX Administration Oxycodone HCl 2.5 mg 07/20/20 16:04 07/24/20 13:29 Oxycodone Hcl (*Crx) 2.5 Mg Tab Ir PO 2.5 mg Q4H PRN Administration Pain Rated 7-10 Progress Note: A&P Assessment and Plan (1) Chronic anticoagulation: Code(s): Z79.01 - detention (current) use of anticoagulants Status: Acute (2) Preoperative cardiovascular examination: Code(s): Z01.810 - Encounter for preprocedural cardiovascular examination Status: Acute (3) Recurrent falls: Code(s): R29.6 - Repeated falls Status: Acute (4) Fracture of femoral neck, left, closed: Code(s): S72.002A - Fracture of unspecified part of neck of left femur, initial encounter for closed fra
--- NOTE | 2020-07-24 14:09 | WPDNEURORHBP ---
Subjective Date/time seen: 07/24/20 14:09 85 years old right-handed female with subcapital fracture of left femur has been involving the physical therapy and occupational therapy in addition she has ongoing comorbid condition of atrial fibrillation as well, remains on apixaban 5 mg q.12 hours other medications are essentially unchanged and vital signs are stable Functional Status Ambulation Ability Ability to Ambulate 10 Feet: Contact Guard Ability to Ambulate 50 Feet With 2 Turns: Contact Guard Ambulation Assistive Devices: Cane, Tee Exam Const: General: cooperative, comfortable and no acute distress Nutritional Appearance: average body habitus Orientation/consciousness: oriented to person Limitations: physical limitations ( left lower extremity fracture) HENMT: Head: normocephalic Ears: hearing grossly normal bilaterally General nose exam: Normal external nose present and No nasal discharge present Eyes: General: appearance normal, both eyes and all related structures Visual Ortiz: normal visual ortiz by confrontation Alignment and Position: alignment normal Eyelids: eyelids normal Sclera: sclerae normal Pupils: Equal, round and reactive pupils present EOM: EOMs intact bilaterally Neck: Neck: full ROM Resp: Effort & Inspection: able to speak in complete sentences Auscultation: clear to auscultation bilaterally Cardio: Rate: regular rate GI: Auscultation: normal bowel sounds Neuro: General: patient oriented x3 Cranial nerves: Yes CN's II-XII intact bilaterally Cognition (Neuro): normal cognition Gait exam (Neuro): Assisted gait required Motor exam (neuro): Pronator motor function not present and No tremor noted Deep tendon reflexes (DTR's): Right triceps reflex intensity grade: 1+, Left triceps reflex intensity grade: 1+, Rt Biceps (C5, C6): 1+, Left biceps reflex intensity grade: 1+, Right brachioradialis reflex intensity grade: 1+, Left brachioradialis reflex intensity grade: 1+, Right patellar reflex intensity grade: 1+, Left patellar reflex intensity grade: 1+, Right ankle reflex intensity grade: 1+ and Left ankle reflex intensity grade: 1+ Plantar Reflex Responses: downgoing: bilateral Psych: Appearance: grossly normal Affect: normal affect Attitude: cooperative Thought content: Yes Normal thought content present Objective Data Vital Signs Vital Signs: Vital Signs - 24 hr 07/23/20 20:26 07/23/20 20:35 07/24/20 04:56 Temperature 35.8 C L 35.9 C L Pulse Rate 82 82 77 Respiratory Rate 16 18 Blood Pressure 130/62 109/49 L Pulse Oximetry 97 99 07/24/20 08:00 07/24/20 08:49 Temperature Pulse Rate 77 77 Respiratory Rate 18 Blood Pressure Pulse Oximetry 99 Intake/Output Intake/Output: Intake & Output 07/21/20 07/22/20 07/23/20 07/24/20 23:59 23:59 23:59 23:59 Intake Total 124 142 5227 480 Balance 966 934 4424 480 Meds/Results Medications: Active Medications Generic Name Dose Route Start Last Admin Trade Name Freq PRN Reason Stop Dose Admin Acetaminophen 1,000 mg 07/20/20 18:00 07/24/20 12:10 Acetaminophen 500 Mg Tablet PO 1,000 mg Q6HR ALEX Administration Apixaban 5 mg 07/24/20 09:00 07/24/20 08:49 Apixaban 5 Mg Tablet PO 5 mg Q12HR ALEX Administration Furosemide 20 mg 07/21/20 09:00 07/24/20 08:49 Furosemide 20 Mg Tablet PO 20 mg QAM ALEX Administration Levothyroxine Sodium 75 mcg 07/21/20 06:30 07/24/20 05:28 Levothyroxine Sodium 75 Mcg Tablet PO 75 mcg DAILY@0630 ALEX Administration Losartan Potassium 50 mg 07/21/20 09:00 07/24/20 08:49 Losartan Potassium 50 Mg Tablet PO 50 mg DAILY ALEX Administration Metoprolol Succinate 100 mg 07/20/20 21:00 07/24/20 08:49 Metoprolol Succinate Ext Rel 100 Mg Tabcr PO 100 mg Q12HR ALEX Administration Oxycodone HCl 2.5 mg 07/20/20 16:04 07/24/20 13:29 Oxycodone Hcl (*Crx) 2.5 Mg Tab Ir PO 2.5 mg Q4H PRN Administration Pain Rated 7-10 Progress
[2020-07-25 05:19] VITALS: BP 149/73; PULSE 93; RESP 18; TEMP 36.2; O2SAT 95
[2020-07-25] MEDS: ACETAMINOPHEN 500 MG TABLET 1000 MG PO ×4 (06:37→23:32)
[2020-07-25] MEDS: LEVOTHYROXINE SODIUM 75 MCG TABLET PO (06:38)
[2020-07-25 08:21] VITALS: PULSE 93
[2020-07-25] MEDS: METOPROLOL SUCCINATE EXT REL 100 MG TABCR PO ×2 (08:21→21:10)
[2020-07-25] MEDS: APIXABAN 5 MG TABLET PO ×2 (08:21→21:10)
[2020-07-25] MEDS: LOSARTAN POTASSIUM 50 MG TABLET PO (08:22)
[2020-07-25] MEDS: FUROSEMIDE 20 MG TABLET PO (08:22)
[2020-07-25 14:00] VITALS: BP 101/48; PULSE 92; RESP 18; TEMP 36.6; O2SAT 99
[2020-07-25 20:50] VITALS: PULSE 79; RESP 18; O2SAT 98
[2020-07-25 21:10] VITALS: PULSE 88
[2020-07-25 22:00] VITALS: BP 145/72; PULSE 79; RESP 18; TEMP 36.1; O2SAT 98
[2020-07-26] VITALS (7 sets, daily range): BP systolic 106–148; BP diastolic 54–70; PULSE 77–81; RESP 16–18; TEMP 35.7–36.3; O2SAT 96–98
[2020-07-26] MEDS: ACETAMINOPHEN 500 MG TABLET 1000 MG PO ×4 (05:42→23:02)
[2020-07-26] MEDS: LEVOTHYROXINE SODIUM 75 MCG TABLET PO (05:42)
[2020-07-26] MEDS: LOSARTAN POTASSIUM 50 MG TABLET PO (07:55)
[2020-07-26] MEDS: APIXABAN 5 MG TABLET PO ×2 (07:55→19:57)
[2020-07-26] MEDS: FUROSEMIDE 20 MG TABLET PO (07:55)
[2020-07-26] MEDS: METOPROLOL SUCCINATE EXT REL 100 MG TABCR PO ×2 (07:55→19:57)
--- NOTE | 2020-07-26 13:46 | WPDNEURORHBP ---
Subjective Date/time seen: 07/26/20 13:46 status post left subcapital femur fracture with comorbid conditions of atrial fibrillation for which she is on apixaban remains involved in therapy has no unusual complaints, is status post left distal radius fracture with sling, vital signs stable Review of Systems Review of Systems: All systems reviewed & are unremarkable except as noted in HPI and below Functional Status Ambulation Ability Ability to Ambulate 10 Feet: Contact Guard Ability to Ambulate 50 Feet With 2 Turns: Contact Guard Ambulation Assistive Devices: Cane, Tee Exam Const: General: cooperative, healthy appearing, comfortable and no acute distress Nutritional Appearance: average body habitus and overweight HENMT: Head: normocephalic Ears: hearing grossly normal bilaterally General nose exam: Normal external nose present and No nasal discharge present Face and sinus: normal facial exam Mouth: Yes Normal oral and palatal mucosa present Eyes: General: appearance normal, both eyes and all related structures Neck: Neck: full ROM Resp: Effort & Inspection: able to speak in complete sentences Cardio: Rate: regular rate Rhythm: abnormal rhythm GI: Auscultation: normal bowel sounds Skin: General skin exam: no rashes or lesions noted Neuro: General: patient oriented x3 Cranial nerves: Yes CN's II-XII intact bilaterally Cognition (Neuro): normal cognition Speech: normal speech Motor exam (neuro): 5/5 motor strength present throughout ( except left upper and lower extremity) Coordination: [id number] test normal ( on the right side) Psych: Appearance: grossly normal Speech and movement: Normal speech and movement present Affect: normal affect Attitude: cooperative Thought process: Normal thought process present Thought content: Yes Normal thought content present Insight: Good insight present (Psych) Judgement: Good judgement present (Psych) Other: very happy Objective Data Vital Signs Vital Signs: Vital Signs - 24 hr 07/25/20 14:00 07/25/20 20:50 07/25/20 21:10 Temperature 36.6 C Pulse Rate 92 79 88 Respiratory Rate 18 18 Blood Pressure 101/48 L Pulse Oximetry 99 98 07/25/20 22:00 07/26/20 05:44 07/26/20 07:55 Temperature 36.1 C L 35.7 C L Pulse Rate 79 80 80 Respiratory Rate 18 18 Blood Pressure 145/72 H 148/70 H Pulse Oximetry 98 98 07/26/20 08:00 Temperature Pulse Rate 80 Respiratory Rate 18 Blood Pressure Pulse Oximetry 98 Intake/Output Intake/Output: Intake & Output 07/23/20 07/24/20 07/25/20 07/26/20 23:59 23:59 23:59 23:59 Intake Total 1080 720 960 480 Balance 1080 720 960 480 Meds/Results Medications: Active Medications Generic Name Dose Route Start Last Admin Trade Name Freq PRN Reason Stop Dose Admin Acetaminophen 1,000 mg 07/20/20 18:00 07/26/20 11:46 Acetaminophen 500 Mg Tablet PO 1,000 mg Q6HR ALEX Administration Apixaban 5 mg 07/24/20 09:00 07/26/20 07:55 Apixaban 5 Mg Tablet PO 5 mg Q12HR ALEX Administration Furosemide 20 mg 07/21/20 09:00 07/26/20 07:55 Furosemide 20 Mg Tablet PO 20 mg QAM ALEX Administration Levothyroxine Sodium 75 mcg 07/21/20 06:30 07/26/20 05:42 Levothyroxine Sodium 75 Mcg Tablet PO 75 mcg DAILY@0630 ALEX Administration Losartan Potassium 50 mg 07/21/20 09:00 07/26/20 07:55 Losartan Potassium 50 Mg Tablet PO 50 mg DAILY ALEX Administration Metoprolol Succinate 100 mg 07/20/20 21:00 07/26/20 07:55 Metoprolol Succinate Ext Rel 100 Mg Tabcr PO 100 mg Q12HR ALEX Administration Oxycodone HCl 2.5 mg 07/20/20 16:04 07/24/20 13:29 Oxycodone Hcl (*Crx) 2.5 Mg Tab Ir PO 2.5 mg Q4H PRN Administration Pain Rated 7-10 Progress Note: A&P Assessment and Plan (1) Chronic anticoagulation: 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
[2020-07-27] MEDS: LEVOTHYROXINE SODIUM 75 MCG TABLET PO (05:31)
[2020-07-27] MEDS: ACETAMINOPHEN 500 MG TABLET 1000 MG PO ×4 (05:31→23:25)
[2020-07-27 06:00] VITALS: BP 149/68; PULSE 76; RESP 16; TEMP 36; O2SAT 97
[2020-07-27 08:47] VITALS: PULSE 76
[2020-07-27] MEDS: METOPROLOL SUCCINATE EXT REL 100 MG TABCR PO ×2 (08:47→20:48)
[2020-07-27] MEDS: FUROSEMIDE 20 MG TABLET PO (08:48)
[2020-07-27] MEDS: LOSARTAN POTASSIUM 50 MG TABLET PO (08:48)
[2020-07-27] MEDS: APIXABAN 5 MG TABLET PO ×2 (08:48→20:48)
--- NOTE | 2020-07-27 13:42 | WPDNEURORHBP ---
Subjective Date/time seen: 07/27/20 13:42 patient voices no complaints. Review of Systems Review of Systems: All systems reviewed & are unremarkable except as noted in HPI and below Functional Status Ambulation Ability Ability to Ambulate 10 Feet: Standby Assistance Ability to Ambulate 50 Feet With 2 Turns: Standby Assistance Ability to Ambulate 150 Feet: Contact Guard Ambulation Assistive Devices: Cane, Tee Exam Const: General: cooperative and healthy appearing HENMT: Head: normocephalic Ears: hearing grossly normal bilaterally Face and sinus: normal facial exam Eyes: EOM: EOMs intact bilaterally Neck: Neck: supple Resp: Effort & Inspection: normal respiratory effort Cardio: Rhythm: regular rhythm GI: Inspection: normal to inspection Neuro: General: patient oriented x3 Cranial nerves: Yes CN's II-XII intact bilaterally and Yes facial symmetry Gait exam (Neuro): Antalgic gait present and Assisted gait required Motor exam (neuro): Motor abnormalites present ( Patient ambulates with the tee walker with a forward flexed posture) Extrem: Other: left upper extremity is in a full arm cast Psych: Appearance: grossly normal Objective Data Vital Signs Vital Signs: Vital Signs - 24 hr 07/26/20 14:00 07/26/20 19:37 07/26/20 19:57 Temperature 36.2 C L 36.3 C L Pulse Rate 81 77 77 Respiratory Rate 18 16 Blood Pressure 106/55 L 124/54 L Pulse Oximetry 97 96 07/26/20 21:51 07/27/20 06:00 07/27/20 08:47 Temperature 36.3 C L 36.0 C L Pulse Rate 77 76 76 Respiratory Rate 16 16 Blood Pressure 124/54 L 149/68 H Pulse Oximetry 96 97 Intake/Output Intake/Output: Intake & Output 07/24/20 07/25/20 07/26/20 07/27/20 23:59 23:59 23:59 23:59 Intake Total 720 960 720 480 Balance 720 960 720 480 Meds/Results Medications: Active Medications Generic Name Dose Route Start Last Admin Trade Name Freq PRN Reason Stop Dose Admin Acetaminophen 1,000 mg 07/20/20 18:00 07/27/20 12:02 Acetaminophen 500 Mg Tablet PO 1,000 mg Q6HR ALEX Administration Apixaban 5 mg 07/24/20 09:00 07/27/20 08:48 Apixaban 5 Mg Tablet PO 5 mg Q12HR ALEX Administration Furosemide 20 mg 07/21/20 09:00 07/27/20 08:48 Furosemide 20 Mg Tablet PO 20 mg QAM ALEX Administration Levothyroxine Sodium 75 mcg 07/21/20 06:30 07/27/20 05:31 Levothyroxine Sodium 75 Mcg Tablet PO 75 mcg DAILY@0630 ALEX Administration Losartan Potassium 50 mg 07/21/20 09:00 07/27/20 08:48 Losartan Potassium 50 Mg Tablet PO 50 mg DAILY ALEX Administration Metoprolol Succinate 100 mg 07/20/20 21:00 07/27/20 08:47 Metoprolol Succinate Ext Rel 100 Mg Tabcr PO 100 mg Q12HR ALEX Administration Oxycodone HCl 2.5 mg 07/20/20 16:04 07/24/20 13:29 Oxycodone Hcl (*Crx) 2.5 Mg Tab Ir PO 2.5 mg Q4H PRN Administration Pain Rated 7-10 Progress Note: A&P Assessment and Plan (1) Recurrent falls: Code(s): R29.6 - Repeated falls Status: Acute (2) Fracture of femoral neck, left, closed: Code(s): S72.002A - Fracture of unspecified part of neck of left femur, initial encounter for closed fracture Status: Acute (3) Distal radius fracture, left: Code(s): S52.502A - Unspecified fracture of the lower end of left radius, initial encounter for closed fracture Status: Acute (4) Fracture of ulnar styloid: Code(s): S52.613A - Displaced fracture of unspecified ulna styloid process, initial encounter for closed fracture Status: Acute (5) Venous insufficiency of both lower extremities: Code(s): I87.2 - Venous insufficiency (chronic) (peripheral) Status: Acute (6) Hypertension: Code(s): I10 - Essential (primary) hypertension Status: Acute (7) A-fib: Qualifiers: Atrial fibrillation type: permanent Qualified Code(s): I48.21 - Permanent atrial fibrillation Code(s): I48.91 - Unspecified atrial fi
[2020-07-27 14:00] VITALS: BP 114/61; PULSE 83; RESP 18; TEMP 36.4; O2SAT 98
[2020-07-27 20:48] VITALS: PULSE 88
[2020-07-27 22:00] VITALS: BP 135/62; PULSE 83; RESP 16; TEMP 36; O2SAT 98
[2020-07-28 04:59] LABS: Basophils Percent Auto 0.7 % (0.2-1.2); Eosinophils Absolute Auto 0.5 K/mm3 (0-0.3); Eosinophils Percent Auto 7.6 % (0-4.4); Hematocrit 38.6 % (37.0-47.0); Hemoglobin 12.5 g/dL (12.0-15.0); Immature Granulocyte Absolute 0.03 K/mm3 (0.00-0.031); Immature Granulocyte Percent A 0.5 % (0-0.5); Lymphocytes Absolute Auto 1.28 K/mm3 (0.9-3.2); Lymphocytes Percent Auto 20.8 % (18.3-44.2); Mean Corpuscular HGB Conc 32.4 g/dl (32-36); Mean Corpuscular Hemoglobin 29.6 pg (26-34); Mean Corpuscular Volume 91.3 fl (80-100); Mean Platelet Volume 9.1 fl (7.4-10.4); Monocytes Absolute Auto 0.7 K/mm3 (0.1-0.6); Monocytes Percent Auto 11.7 % (2.6-8.5); Neutrophils Absolute Auto 3.6 K/mm3 (1.3-6.7); Neutrophils Percent Auto 58.7 % (45.5-73.1); Platelet Count Result 340 k/mm3 (150-375); Red Blood Count 4.23 M/mm3 (4.2-5.4); White Blood Count 6.2 K/mm3 (4.5-10.0)
[2020-07-28 05:10] LABS: Anion Gap 5 mmol/L (8-16); Blood Urea Nitrogen 21 mg/dL (7-17); Calcium 8.6 mg/dL (8.4-10.2); Carbon Dioxide 31 mmol/L (22-30); Chloride 102 mmol/L (98-107); Estimated CRCL calculation 54 ml/min; Estimated Glomerular Filt Rate > 60; Glucose 96 mg/dL (65-105); Potassium 4.1 mmol/L (3.4-5.0); Sodium 138 mmol/L (137-145)
[2020-07-28] MEDS: LEVOTHYROXINE SODIUM 75 MCG TABLET PO (05:57)
[2020-07-28] MEDS: ACETAMINOPHEN 500 MG TABLET 1000 MG PO ×3 (05:57→18:33)
[2020-07-28 06:00] VITALS: BP 149/95; PULSE 79; RESP 16; TEMP 36.5; O2SAT 99
[2020-07-28 08:04] VITALS: PULSE 79
[2020-07-28] MEDS: FUROSEMIDE 20 MG TABLET PO (08:04)
[2020-07-28] MEDS: LOSARTAN POTASSIUM 50 MG TABLET PO (08:04)
[2020-07-28] MEDS: METOPROLOL SUCCINATE EXT REL 100 MG TABCR PO ×2 (08:04→20:22)
[2020-07-28] MEDS: APIXABAN 5 MG TABLET PO ×2 (08:04→20:22)
--- NOTE | 2020-07-28 11:47 | PCNFU ---
Nutrition Follow-Up Complete: No nutritional needs at this time. Goal: Patient to continue meeting estimated nutritional needs. Pt current nutrition is heart healthy diet. Last recorded weight is 96.2 kg. Recommend re-weighing patient. Bowel Motility: + BM 07/26 Labs Reviewed: BUN 21 Meds Noted: Eliquis, Lasix, Synthroid, Cozaar, Toprol xl Additional Notes: Spoke with patient today. Patient reports having a great appetite consuming 90-100% of meals. She enjoys the food here and no additional questions or concerns. Monitor patients labs, medications, weight, and oral intake every 7 days.
--- NOTE | 2020-07-28 12:22 | PCNSR ---
On 07/28/20, the student, Arlin Mcwilliams, provided care and completed [facility] documentation on this patient. I have reviewed the student's documentation and agree with the findings.
--- NOTE | 2020-07-28 13:31 | WPDNEURORHBP ---
Subjective Date/time seen: 07/28/20 13:31 Patient is present along with daughter during team conference this morning. Patient was seen later with occupational therapy during bathing activity. Patient denies any significant pain except for a left upper extremity Review of Systems Review of Systems: All systems reviewed & are unremarkable except as noted in HPI and below Functional Status Ambulation Ability Ability to Ambulate 10 Feet: Standby Assistance Ability to Ambulate 50 Feet With 2 Turns: Standby Assistance Ability to Ambulate 150 Feet: Standby Assistance Ambulation Assistive Devices: Cane, Tee Transfers Ability Ability to Transfer In/Out of Chair: Contact Guard Exam Narrative: Exam Narrative: Patient is in no acute distress head is normocephalic extraocular muscles are intact. Neck is supple heart rate rhythm is regular lungs are clear to auscultation abdomen soft nontender function: Patient requires minimal assistance with upper extremity ADLs and lower extremity ADLs patient needs reminders not to bear weight through the upper extremity on the fracture site. It is anticipated the patient will continue to need assistance with homemaking skills. Transfers are at supervision. Gait is 150 ft using a tee cane and contact a Min assist. Objective Data Vital Signs Vital Signs: Vital Signs - 24 hr 07/27/20 14:00 07/27/20 20:48 07/27/20 22:00 Temperature 36.4 C 36.0 C L Pulse Rate 83 88 83 Respiratory Rate 18 16 Blood Pressure 114/61 135/62 Pulse Oximetry 98 98 07/28/20 06:00 07/28/20 08:04 Temperature 36.5 C Pulse Rate 79 79 Respiratory Rate 16 Blood Pressure 149/95 H Pulse Oximetry 99 Intake/Output Intake/Output: Intake & Output 07/25/20 07/26/20 07/27/20 07/28/20 23:59 23:59 23:59 23:59 Intake Total 960 720 720 480 Balance 960 720 720 480 Meds/Results Medications: Active Medications Generic Name Dose Route Start Last Admin Trade Name Freq PRN Reason Stop Dose Admin Acetaminophen 1,000 mg 07/20/20 18:00 07/28/20 11:53 Acetaminophen 500 Mg Tablet PO 1,000 mg Q6HR ALEX Administration Apixaban 5 mg 07/24/20 09:00 07/28/20 08:04 Apixaban 5 Mg Tablet PO 5 mg Q12HR ALEX Administration Furosemide 20 mg 07/21/20 09:00 07/28/20 08:04 Furosemide 20 Mg Tablet PO 20 mg QAM ALEX Administration Levothyroxine Sodium 75 mcg 07/21/20 06:30 07/28/20 05:57 Levothyroxine Sodium 75 Mcg Tablet PO 75 mcg DAILY@0630 ALEX Administration Losartan Potassium 50 mg 07/21/20 09:00 07/28/20 08:04 Losartan Potassium 50 Mg Tablet PO 50 mg DAILY ALEX Administration Metoprolol Succinate 100 mg 07/20/20 21:00 07/28/20 08:04 Metoprolol Succinate Ext Rel 100 Mg Tabcr PO 100 mg Q12HR ALEX Administration Oxycodone HCl 2.5 mg 07/20/20 16:04 07/24/20 13:29 Oxycodone Hcl (*Crx) 2.5 Mg Tab Ir PO 2.5 mg Q4H PRN Administration Pain Rated 7-10 Labs Labs: Laboratory Results - last 24 hr 07/28/20 07/28/20 04:44 04:44 WBC 6.2 RBC 4.23 Hgb 12.5 Hct 38.6 MCV 91.3 MCH 29.6 MCHC 32.4 RDW 14.0 Plt Count 340 MPV 9.1 Immature Gran % (Auto) 0.5 Neut % (Auto) 58.7 Lymph % (Auto) 20.8 Story % (Auto) 11.7 H Eos % (Auto) 7.6 H Baso % (Auto) 0.7 Lymph # (Auto) 1.28 Story # (Auto) 0.7 H Eos # (Auto) 0.5 H Baso # (Auto) 0.0 Abs Immat Gran (auto) 0.03 Absolute Neuts (auto) 3.6 Absolute Nucleated RBC 0.0 Nucleated RBC % 0.0 Sodium 138 Potassium 4.1 Chloride 102 Carbon Dioxide 31 H Anion Gap 5 L BUN 21 H Creatinine 0.80 Estim Creat Clear Calc 54 Estimated GFR > 60 Glucose 96 Calcium 8.6 Progress Note: A&P Assessment and Plan (1) Fracture of femoral neck, left, closed: Code(s): S72.002A - Fracture of unspecified part of neck of left femur, initial encounter for closed fracture Status: Acute (2) Distal radius fracture, left:
[2020-07-28 14:00] VITALS: BP 138/64; PULSE 84; RESP 20; TEMP 36.5; O2SAT 96
[2020-07-28 20:00] VITALS: PULSE 51; RESP 20; O2SAT 93
[2020-07-28 20:22] VITALS: PULSE 64
[2020-07-28 20:34] VITALS: BP 124/61; PULSE 51; RESP 20; TEMP 35.8; O2SAT 93
[2020-07-29] MEDS: ACETAMINOPHEN 500 MG TABLET 1000 MG PO ×5 (00:35→23:50)
[2020-07-29 06:00] VITALS: BP 137/67; PULSE 74; RESP 18; TEMP 36.3; O2SAT 97
[2020-07-29] MEDS: LEVOTHYROXINE SODIUM 75 MCG TABLET PO (06:33)
[2020-07-29 08:24] VITALS: PULSE 66
[2020-07-29] MEDS: APIXABAN 5 MG TABLET PO ×2 (08:24→21:42)
[2020-07-29] MEDS: FUROSEMIDE 20 MG TABLET PO (08:24)
[2020-07-29] MEDS: METOPROLOL SUCCINATE EXT REL 100 MG TABCR PO ×2 (08:24→21:42)
[2020-07-29] MEDS: LOSARTAN POTASSIUM 50 MG TABLET PO (08:25)
[2020-07-29 14:00] VITALS: BP 97/51; PULSE 80; RESP 18; TEMP 36.1; O2SAT 96
--- NOTE | 2020-07-29 16:16 | WPDNEURORHBP ---
Subjective Date/time seen: 07/29/20 16:16 Patient seen this morning during physical therapy Review of Systems Review of Systems: All systems reviewed & are unremarkable except as noted in HPI and below Functional Status Ambulation Ability Ability to Ambulate 10 Feet: Contact Guard Ability to Ambulate 50 Feet With 2 Turns: Contact Guard Ability to Ambulate 150 Feet: Contact Guard Ambulation Assistive Devices: Cane, Tee Transfers Ability Ability to Transfer In/Out of Chair: Contact Guard Exam Narrative: Exam Narrative: patient is on gym mat performing exercises. Patient is in no acute distress. Head is normocephalic. Extraocular muscles are intact. Neck is supple. Heart rate and rhythm is regular. Lungs are clear to auscultation. Abdomen is soft nontender. Left upper extremity is in a long-arm cast. Left lower extremity incision is intact. right upper extremity and lower extremities strength are 4-5. Objective Data Vital Signs Vital Signs: Vital Signs - 24 hr 07/28/20 20:00 07/28/20 20:22 07/28/20 20:34 Temperature 35.8 C L Pulse Rate 51 L 64 51 L Respiratory Rate 20 20 Blood Pressure 124/61 Pulse Oximetry 93 93 07/29/20 06:00 07/29/20 08:24 07/29/20 14:00 Temperature 36.3 C L 36.1 C L Pulse Rate 74 66 80 Respiratory Rate 18 18 Blood Pressure 137/67 97/51 L Pulse Oximetry 97 96 Intake/Output Intake/Output: Intake & Output 07/26/20 07/27/20 07/28/20 07/29/20 23:59 23:59 23:59 23:59 Intake Total 720 720 720 720 Balance 720 720 720 720 Meds/Results Medications: Active Medications Generic Name Dose Route Start Last Admin Trade Name Freq PRN Reason Stop Dose Admin Acetaminophen 1,000 mg 07/20/20 18:00 07/29/20 12:01 Acetaminophen 500 Mg Tablet PO 1,000 mg Q6HR ALEX Administration Apixaban 5 mg 07/24/20 09:00 07/29/20 08:24 Apixaban 5 Mg Tablet PO 5 mg Q12HR ALEX Administration Furosemide 20 mg 07/21/20 09:00 07/29/20 08:24 Furosemide 20 Mg Tablet PO 20 mg QAM ALEX Administration Levothyroxine Sodium 75 mcg 07/21/20 06:30 07/29/20 06:33 Levothyroxine Sodium 75 Mcg Tablet PO 75 mcg DAILY@0630 ALEX Administration Losartan Potassium 50 mg 07/21/20 09:00 07/29/20 08:25 Losartan Potassium 50 Mg Tablet PO 50 mg DAILY ALEX Administration Metoprolol Succinate 100 mg 07/20/20 21:00 07/29/20 08:24 Metoprolol Succinate Ext Rel 100 Mg Tabcr PO 100 mg Q12HR ALEX Administration Oxycodone HCl 2.5 mg 07/20/20 16:04 07/24/20 13:29 Oxycodone Hcl (*Crx) 2.5 Mg Tab Ir PO 2.5 mg Q4H PRN Administration Pain Rated 7-10 Radiology Results: ITS Impressions Wrist X-Ray 07/29/20 12:37 IMPRESSION: 1. Casted internally fixed left distal radial metaphyseal fracture. 2. Ulnar styloid base avulsion. 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
--- NOTE | 2020-07-29 16:59 | PC.NURSE ---
Addendum entered by Ciarra Avina RN 07/29/20 17:23: pt current cast has been in place approximately 2 weeks, so current cast would remain x 2 more weeks. patient will follow up with Dr Barraza on discharge. Original Note: Spoke with Dr Barraza regarding patient upcoming discharge on 08/04 as well as status of changing cast prior to discharge. Dr Barraza stated he would like the current cast to remain on x 1 month.
--- NOTE | 2020-07-29 17:06 | PM.PNORT ---
Progress Note: A&P Additional Plan Xrays left wrist show no change in alignment. Plan 2 more weeks in current long arm cast. I will want to see her in the office in 2 weeks. Walking halls. I would like to reduce walking until 6 week point to protect soft tissue repair at closure. Subjective Subjective Date/Time Seen: 07/29/20 17:06 Objective Data Vital Signs Vital Signs: Vital Signs - 24 hr 07/28/20 20:00 07/28/20 20:22 07/28/20 20:34 Temperature 35.8 C L Pulse Rate 51 L 64 51 L Respiratory Rate 20 20 Blood Pressure 124/61 Pulse Oximetry 93 93 07/29/20 06:00 07/29/20 08:24 07/29/20 14:00 Temperature 36.3 C L 36.1 C L Pulse Rate 74 66 80 Respiratory Rate 18 18 Blood Pressure 137/67 97/51 L Pulse Oximetry 97 96 Intake/Output Intake/Output: Intake & Output 07/26/20 07/27/20 07/28/20 07/29/20 23:59 23:59 23:59 23:59 Intake Total 720 720 720 720 Balance 720 720 720 720 Meds/Results Medications: Active Medications Generic Name Dose Route Start Last Admin Trade Name Freq PRN Reason Stop Dose Admin Acetaminophen 1,000 mg 07/20/20 18:00 07/29/20 12:01 Acetaminophen 500 Mg Tablet PO 1,000 mg Q6HR ALEX Administration Apixaban 5 mg 07/24/20 09:00 07/29/20 08:24 Apixaban 5 Mg Tablet PO 5 mg Q12HR ALEX Administration Furosemide 20 mg 07/21/20 09:00 07/29/20 08:24 Furosemide 20 Mg Tablet PO 20 mg QAM ALEX Administration Levothyroxine Sodium 75 mcg 07/21/20 06:30 07/29/20 06:33 Levothyroxine Sodium 75 Mcg Tablet PO 75 mcg DAILY@0630 ALEX Administration Losartan Potassium 50 mg 07/21/20 09:00 07/29/20 08:25 Losartan Potassium 50 Mg Tablet PO 50 mg DAILY ALEX Administration Metoprolol Succinate 100 mg 07/20/20 21:00 07/29/20 08:24 Metoprolol Succinate Ext Rel 100 Mg Tabcr PO 100 mg Q12HR ALEX Administration Oxycodone HCl 2.5 mg 07/20/20 16:04 07/24/20 13:29 Oxycodone Hcl (*Crx) 2.5 Mg Tab Ir PO 2.5 mg Q4H PRN Administration Pain Rated 7-10 Radiology Results: ITS Impressions Wrist X-Ray 07/29/20 12:37 IMPRESSION: 1. Casted internally fixed left distal radial metaphyseal fracture. 2. Ulnar styloid base avulsion.
[2020-07-29 20:00] VITALS: PULSE 83; RESP 18; O2SAT 96
[2020-07-29 21:36] VITALS: BP 141/57; PULSE 83; RESP 18; TEMP 36.1; O2SAT 96
[2020-07-29 21:42] VITALS: PULSE 83
[2020-07-30] VITALS (7 sets, daily range): BP systolic 122–141; BP diastolic 69–79; PULSE 76–97; RESP 16–20; TEMP 35.7–36.2; O2SAT 96–98
[2020-07-30] MEDS: ACETAMINOPHEN 500 MG TABLET 1000 MG PO ×4 (05:31→23:45)
[2020-07-30] MEDS: LEVOTHYROXINE SODIUM 75 MCG TABLET PO (05:31)
[2020-07-30] MEDS: METOPROLOL SUCCINATE EXT REL 100 MG TABCR PO ×2 (09:11→20:18)
[2020-07-30] MEDS: APIXABAN 5 MG TABLET PO ×2 (09:11→20:18)
[2020-07-30] MEDS: FUROSEMIDE 20 MG TABLET PO (09:12)
[2020-07-30] MEDS: LOSARTAN POTASSIUM 50 MG TABLET PO (09:12)
--- NOTE | 2020-07-30 14:49 | WPDNEURORHBP ---
Subjective Date/time seen: 07/30/20 14:49 Patient seen early this morning. Patient in no acute distress. Patient voices no complaints. Review of Systems Review of Systems: All systems reviewed & are unremarkable except as noted in HPI and below Functional Status Ambulation Ability Ability to Ambulate 10 Feet: Contact Guard Ability to Ambulate 50 Feet With 2 Turns: Contact Guard Ability to Ambulate 150 Feet: Contact Guard Ambulation Assistive Devices: Walker, Tee Transfers Ability Ability to Transfer In/Out of Chair: Contact Guard Exam Narrative: Exam Narrative: Head is normocephalic. Extraocular muscles are intact. Her ring rhythm is regular. Lungs are clear to auscultation. Abdomen is soft nontender. Left upper extremity is in a long-arm cast. Left lower extremity strength is 3 proximally distally 4 Objective Data Vital Signs Vital Signs: Vital Signs - 24 hr 07/29/20 20:00 07/29/20 21:36 07/29/20 21:42 Temperature 36.1 C L Pulse Rate 83 83 83 Respiratory Rate 18 18 Blood Pressure 141/57 H Pulse Oximetry 96 96 07/30/20 06:00 07/30/20 08:00 07/30/20 09:11 Temperature 36.1 C L Pulse Rate 97 97 97 Respiratory Rate 20 20 Blood Pressure 141/79 H Pulse Oximetry 96 96 Intake/Output Intake/Output: Intake & Output 07/27/20 07/28/20 07/29/20 07/30/20 23:59 23:59 23:59 23:59 Intake Total 550 750 9955 480 Balance 826 024 4833 480 Meds/Results Medications: Active Medications Generic Name Dose Route Start Last Admin Trade Name Jameel PRN Reason Stop Dose Admin Acetaminophen 1,000 mg 07/20/20 18:00 07/30/20 12:15 Acetaminophen 500 Mg Tablet PO 1,000 mg Q6HR ALEX Administration Apixaban 5 mg 07/24/20 09:00 07/30/20 09:11 Apixaban 5 Mg Tablet PO 5 mg Q12HR ALEX Administration Furosemide 20 mg 07/21/20 09:00 07/30/20 09:12 Furosemide 20 Mg Tablet PO 20 mg QAM ALEX Administration Levothyroxine Sodium 75 mcg 07/21/20 06:30 07/30/20 05:31 Levothyroxine Sodium 75 Mcg Tablet PO 75 mcg DAILY@0630 ALEX Administration Losartan Potassium 50 mg 07/21/20 09:00 07/30/20 09:12 Losartan Potassium 50 Mg Tablet PO 50 mg DAILY ALEX Administration Metoprolol Succinate 100 mg 07/20/20 21:00 07/30/20 09:11 Metoprolol Succinate Ext Rel 100 Mg Tabcr PO 100 mg Q12HR ALEX Administration Oxycodone HCl 2.5 mg 07/20/20 16:04 07/24/20 13:29 Oxycodone Hcl (*Crx) 2.5 Mg Tab Ir PO 2.5 mg Q4H PRN Administration Pain Rated 7-10 Radiology Results: ITS Impressions Wrist X-Ray 07/29/20 12:37 IMPRESSION: 1. Casted internally fixed left distal radial metaphyseal fracture. 2. Ulnar styloid base avulsion. Progress Note: A&P Assessment and Plan (1) Distal radius fracture, left: Code(s): S52.502A - Unspecified fracture of the lower end of left radius, initial encounter for closed fracture Status: Acute (2) Fracture of ulnar styloid: Code(s): S52.613A - Displaced fracture of unspecified ulna styloid process, initial encounter for closed fracture Status: Acute (3) Fracture of femoral neck, left, closed: Code(s): S72.002A - Fracture of unspecified part of neck of left femur, initial encounter for closed fracture Status: Acute (4) Chronic anticoagulation: Code(s): Z79.01 - alf (current) use of anticoagulants Status: Acute (5) Preoperative cardiovascular examination: Code(s): Z01.810 - Encounter for preprocedural cardiovascular examination Status: Acute (6) Recurrent falls: Code(s): R29.6 - Repeated falls Status: Acute (7) Venous insufficiency of both lower extremities: Code(s): I87.2 - Venous insufficiency (chronic) (peripheral) Status: Acute (8) Hyponatremia: Code(s): E87.1 - Hypo-osmolality and hyponatremia Status: Acute (9) Bladder incontinence: Code(s): R32 - Unspecified urinary incontinence
--- NOTE | 2020-07-30 15:52 | PCPTNOTE ---
Esthela Chaney PTA completed an inpatient rehab wheelchair evaluation on Jossy Rasheed on 07/30/2020. The patient is unable to safely and independently ambulate household distances due to their current impairments. Their diagnosis is left hip/left wrist fractures and their impairments include decreased strength, decreased endurance, decreased range of motion, decreased balance and lower extremity weakness. Jossy's weight bearing status is weight-bearing as tolerated on the bilateral lower legs. The patient demonstrates significant functional mobility limitations that impair their ability to participate in mobility-related activities of daily living (MRADLs), including toileting, feeding, dressing, grooming, and bathing in the customary locations in the home. These limitations cannot be sufficiently resolved by the use of an appropriately fitted cane or walker. It is recommended that the patient utilize a wheelchair for functional mobility within the home in order to facilitate optimal safety, independence and participation in all MRADL's and adequately access their home environment on a regular basis. The patient's home provides adequate access between rooms, maneuvering space, and surfaces to accommodate the recommended wheelchair. The use of a wheelchair for functional mobility is strongly recommended and the patient is receptive to using the wheelchair. The use of this wheelchair will significantly improve the patient's ability to participate in MRADLS and the patient will use it on a regular basis in the home. This will facilitate optimal safety, independence, and participation. The patient has demonstrated sufficient physical and mental capabilities needed to safely propel a manual wheelchair that is provided in the home during a typical day. Recommended Wheelchair Frame: standard Recommended Wheelchair Size: 18x18 Recommended Wheelchair Cushion:standard Wheelchair Leg Recommendations: Bilateral elevated leg rests. -Elevating legrests are recommended because the patient has significant edema of the lower extremities that requires an elevating leg rest. -Anti-tippers are recommended due to patient demonstrating increased risk for falls. They would benefit from anti-tippers with added safety and stabilization. Esthela [place] MEAT WRAPPER 07-30-2020 Evaluating Therapist Date I agree with and certify that the above recommendation is medically necessary. Referring Physician Date I agree with and certify that the above recommendation is medically necessary. Referring Physician Date
[2020-07-31] MEDS: LEVOTHYROXINE SODIUM 75 MCG TABLET PO (05:31)
[2020-07-31] MEDS: ACETAMINOPHEN 500 MG TABLET 1000 MG PO ×3 (05:31→18:24)
[2020-07-31 05:34] VITALS: BP 130/71; PULSE 83; RESP 16; TEMP 35.8; O2SAT 97
[2020-07-31 08:00] VITALS: PULSE 83; RESP 16; O2SAT 97
[2020-07-31 08:30] VITALS: PULSE 83
[2020-07-31] MEDS: FUROSEMIDE 20 MG TABLET PO (08:30)
[2020-07-31] MEDS: APIXABAN 5 MG TABLET PO ×2 (08:30→20:21)
[2020-07-31] MEDS: METOPROLOL SUCCINATE EXT REL 100 MG TABCR PO ×2 (08:30→20:21)
[2020-07-31] MEDS: LOSARTAN POTASSIUM 50 MG TABLET PO (08:31)
--- NOTE | 2020-07-31 12:30 | WPDNEURORHBP ---
Subjective Date/time seen: 07/31/20 12:30 patient feels comfortable and denies any significant pain. Review of Systems Review of Systems: All systems reviewed & are unremarkable except as noted in HPI and below Functional Status Ambulation Ability Ability to Ambulate 10 Feet: Contact Guard Ability to Ambulate 50 Feet With 2 Turns: Contact Guard Ability to Ambulate 150 Feet: Contact Guard Ambulation Assistive Devices: Walker, Tee Transfers Ability Ability to Transfer In/Out of Chair: Contact Guard Exam Narrative: Exam Narrative: Head is normocephalic and muscular are intact neck is supple. Heart rate and rhythm is regular. Lungs are clear to auscultation. Abdomen is obese. Left upper extremity strength is in the long cast no neurovascular compromise is noted. Left proximal hip strength continues to improve on a daily basis. Gait is contact guard using a tee walker gait is limited to just a few feet per Ortho. Transfers are contact guard. Objective Data Vital Signs Vital Signs: Vital Signs - 24 hr 07/30/20 14:00 07/30/20 20:18 07/30/20 20:50 Temperature 36.2 C L Pulse Rate 88 76 83 Respiratory Rate 18 16 Blood Pressure 132/77 Pulse Oximetry 98 96 07/30/20 21:45 07/31/20 05:34 07/31/20 08:00 Temperature 35.7 C L 35.8 C L Pulse Rate 83 83 83 Respiratory Rate 16 16 16 Blood Pressure 122/69 130/71 Pulse Oximetry 96 97 97 07/31/20 08:30 Temperature Pulse Rate 83 Respiratory Rate Blood Pressure Pulse Oximetry Intake/Output Intake/Output: Intake & Output 07/28/20 07/29/20 07/30/20 07/31/20 23:59 23:59 23:59 23:59 Intake Total 720 1080 720 360 Balance 720 1080 720 360 Meds/Results Medications: Active Medications Generic Name Dose Route Start Last Admin Trade Name Freq PRN Reason Stop Dose Admin Acetaminophen 1,000 mg 07/20/20 18:00 07/31/20 12:10 Acetaminophen 500 Mg Tablet PO 1,000 mg Q6HR ALEX Administration Apixaban 5 mg 07/24/20 09:00 07/31/20 08:30 Apixaban 5 Mg Tablet PO 5 mg Q12HR ALEX Administration Furosemide 20 mg 07/21/20 09:00 07/31/20 08:30 Furosemide 20 Mg Tablet PO 20 mg QAM ALEX Administration Levothyroxine Sodium 75 mcg 07/21/20 06:30 07/31/20 05:31 Levothyroxine Sodium 75 Mcg Tablet PO 75 mcg DAILY@0630 ALEX Administration Losartan Potassium 50 mg 07/21/20 09:00 07/31/20 08:31 Losartan Potassium 50 Mg Tablet PO 50 mg DAILY ALEX Administration Metoprolol Succinate 100 mg 07/20/20 21:00 07/31/20 08:30 Metoprolol Succinate Ext Rel 100 Mg Tabcr PO 100 mg Q12HR ALEX Administration Oxycodone HCl 2.5 mg 07/20/20 16:04 07/24/20 13:29 Oxycodone Hcl (*Crx) 2.5 Mg Tab Ir PO 2.5 mg Q4H PRN Administration Pain Rated 7-10 Radiology Results: ITS Impressions Wrist X-Ray 07/29/20 12:37 IMPRESSION: 1. Casted internally fixed left distal radial metaphyseal fracture. 2. Ulnar styloid base avulsion. 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
[2020-07-31 14:00] VITALS: BP 91/52; PULSE 88; RESP 16; TEMP 35.8; O2SAT 98
[2020-07-31 20:21] VITALS: PULSE 88
[2020-07-31 21:07] VITALS: BP 112/53; PULSE 88; RESP 18; TEMP 35.9; O2SAT 97
[2020-08-01 05:46] VITALS: BP 145/76; PULSE 83; RESP 16; TEMP 36.2; O2SAT 98
[2020-08-01] MEDS: ACETAMINOPHEN 500 MG TABLET 1000 MG PO ×4 (06:23→17:34)
[2020-08-01] MEDS: LEVOTHYROXINE SODIUM 75 MCG TABLET PO (06:23)
[2020-08-01 08:35] VITALS: PULSE 80
[2020-08-01] MEDS: LOSARTAN POTASSIUM 50 MG TABLET PO (08:35)
[2020-08-01] MEDS: METOPROLOL SUCCINATE EXT REL 100 MG TABCR PO ×2 (08:35→20:34)
[2020-08-01] MEDS: APIXABAN 5 MG TABLET PO ×2 (08:36→20:33)
[2020-08-01] MEDS: FUROSEMIDE 20 MG TABLET PO (08:36)
--- NOTE | 2020-08-01 09:23 | WPDNEURORHBP ---
Subjective Date/time seen: 08/01/20 09:23 patient was seen in morning rounds. Family members will be in for family training this weekend. Patient denies any pain to upper extremity or lower extremity. Review of Systems Review of Systems: All systems reviewed & are unremarkable except as noted in HPI and below Functional Status Ambulation Ability Ability to Ambulate 10 Feet: Contact Guard Ability to Ambulate 50 Feet With 2 Turns: Contact Guard Ability to Ambulate 150 Feet: Contact Guard Ambulation Assistive Devices: Walker, Tee Transfers Ability Ability to Transfer In/Out of Chair: Contact Guard Exam Narrative: Exam Narrative: Head is normocephalic. Patient is in a cheaper mood. Heart rate and rhythm is regular. Lungs are clear to auscultation. Abdomen is soft nontender. Right upper and lower extremity strength are essentially 4- to 4 throughout. Left upper extremity is in a cast. Left hip weakness is noted secondary to hip fracture. Objective Data Vital Signs Vital Signs: Vital Signs - 24 hr 07/31/20 14:00 07/31/20 20:21 07/31/20 21:07 Temperature 35.8 C L 35.9 C L Pulse Rate 88 88 88 Respiratory Rate 16 18 Blood Pressure 91/52 L 112/53 L Pulse Oximetry 98 97 08/01/20 05:46 08/01/20 08:35 Temperature 36.2 C L Pulse Rate 83 80 Respiratory Rate 16 Blood Pressure 145/76 H Pulse Oximetry 98 Intake/Output Intake/Output: Intake & Output 07/29/20 07/30/20 07/31/20 08/01/20 23:59 23:59 23:59 23:59 Intake Total 1080 720 840 480 Balance 1080 720 840 480 Meds/Results Medications: Active Medications Generic Name Dose Route Start Last Admin Trade Name Freq PRN Reason Stop Dose Admin Acetaminophen 1,000 mg 07/20/20 18:00 08/01/20 06:23 Acetaminophen 500 Mg Tablet PO 1,000 mg Q6HR ALEX Administration Apixaban 5 mg 07/24/20 09:00 08/01/20 08:36 Apixaban 5 Mg Tablet PO 5 mg Q12HR ALEX Administration Furosemide 20 mg 07/21/20 09:00 08/01/20 08:36 Furosemide 20 Mg Tablet PO 20 mg QAM ALEX Administration Levothyroxine Sodium 75 mcg 07/21/20 06:30 08/01/20 06:23 Levothyroxine Sodium 75 Mcg Tablet PO 75 mcg DAILY@0630 ALEX Administration Losartan Potassium 50 mg 07/21/20 09:00 08/01/20 08:35 Losartan Potassium 50 Mg Tablet PO 50 mg DAILY ALEX Administration Metoprolol Succinate 100 mg 07/20/20 21:00 08/01/20 08:35 Metoprolol Succinate Ext Rel 100 Mg Tabcr PO 100 mg Q12HR ALEX Administration Oxycodone HCl 2.5 mg 07/20/20 16:04 07/24/20 13:29 Oxycodone Hcl (*Crx) 2.5 Mg Tab Ir PO 2.5 mg Q4H PRN Administration Pain Rated 7-10 Radiology Results: ITS Impressions Wrist X-Ray 07/29/20 12:37 IMPRESSION: 1. Casted internally fixed left distal radial metaphyseal fracture. 2. Ulnar styloid base avulsion. Progress Note: A&P Assessment and Plan (1) Distal radius fracture, left: Code(s): S52.502A - Unspecified fracture of the lower end of left radius, initial encounter for closed fracture Status: Acute (2) Fracture of ulnar styloid: Code(s): S52.613A - Displaced fracture of unspecified ulna styloid process, initial encounter for closed fracture Status: Acute (3) Fracture of femoral neck, left, closed: Code(s): S72.002A - Fracture of unspecified part of neck of left femur, initial encounter for closed fracture Status: Acute (4) Chronic anticoagulation: Code(s): Z79.01 - [facility] (current) use of anticoagulants Status: Acute (5) Preoperative cardiovascular examination: Code(s): Z01.810 - Encounter for preprocedural cardiovascular examination Status: Acute (6) Recurrent falls: Code(s): R29.6 - Repeated falls Status: Acute (7) Venous insufficiency of both lower extremities: Code(s): I87.2 - Venous insufficiency (chronic) (peripheral) Status: Acute (8) Hyponatremia: Code(s): E87.1 - Hypo-osmolalit
[2020-08-01 14:00] VITALS: BP 110/80; PULSE 88; RESP 18; TEMP 35.6; O2SAT 97
[2020-08-01 20:34] VITALS: PULSE 88
[2020-08-01 21:12] VITALS: BP 106/54; PULSE 86; RESP 18; TEMP 35.8; O2SAT 98
[2020-08-02] MEDS: ACETAMINOPHEN 500 MG TABLET 1000 MG PO ×4 (00:20→17:18)
--- NOTE | 2020-08-02 03:54 | PC.NURSE ---
Daylight Savings Time For Daylight Savings Time Ending in the Fall - Clocks are moved back. For Daylight Savings Time Beginning in the Spring - Clocks are moved ahead. For [facility], the time of change occurs at 0200 hrs. Time is taken from the food and beverage server. This entry on the patient's chart recognizes the change in time reflected during documentation. Example: 2 entries for vital signs may be charted for 0200 hrs.
[2020-08-02 04:36] VITALS: BP 141/68; PULSE 76; RESP 20; TEMP 35.8; O2SAT 99
[2020-08-02] MEDS: LEVOTHYROXINE SODIUM 75 MCG TABLET PO (05:58)
[2020-08-02 08:21] VITALS: PULSE 76
[2020-08-02] MEDS: APIXABAN 5 MG TABLET PO ×2 (08:21→20:28)
[2020-08-02] MEDS: METOPROLOL SUCCINATE EXT REL 100 MG TABCR PO ×2 (08:21→20:28)
[2020-08-02] MEDS: LOSARTAN POTASSIUM 50 MG TABLET PO (08:22)
[2020-08-02] MEDS: FUROSEMIDE 20 MG TABLET PO (08:22)
--- NOTE | 2020-08-02 10:29 | WPDNEURORHBP ---
Subjective Date/time seen: 08/02/20 10:29 Patient is seen up in wheelchair. No acute distress. Patien Review of Systems Review of Systems: All systems reviewed & are unremarkable except as noted in HPI and below Functional Status Ambulation Ability Ability to Ambulate 10 Feet: Standby Assistance Ability to Ambulate 50 Feet With 2 Turns: Contact Guard Ability to Ambulate 150 Feet: Contact Guard Ambulation Assistive Devices: Cane, Tee Transfers Ability Ability to Transfer In/Out of Chair: Contact Guard Exam Narrative: Exam Narrative: Patient is in good spirits. Head is normocephalic. Appetite is good. Voice is clear. Heart rate and rhythm is regular. Lungs are clear to auscultation. Abdomen is soft nontender. Right upper right lower extremity strength are 4-5. Left upper extremity is in a long-arm cast. No edema is noted to the fingertips. Left lower proximal weakness remains. Patient is at contact guard with transfers. Objective Data Vital Signs Vital Signs: Vital Signs - 24 hr 08/01/20 14:00 08/01/20 20:34 08/01/20 21:12 Temperature 35.6 C L 35.8 C L Pulse Rate 88 88 86 Respiratory Rate 18 18 Blood Pressure 110/80 106/54 L Pulse Oximetry 97 98 08/02/20 04:36 08/02/20 08:21 Temperature 35.8 C L Pulse Rate 76 76 Respiratory Rate 20 Blood Pressure 141/68 H Pulse Oximetry 99 Intake/Output Intake/Output: Intake & Output 07/30/20 07/31/20 08/01/20 08/03/20 23:59 23:59 23:59 00:59 Intake Total 720 840 960 240 Balance 720 840 960 240 Meds/Results Medications: Active Medications Generic Name Dose Route Start Last Admin Trade Name Freq PRN Reason Stop Dose Admin Acetaminophen 1,000 mg 07/20/20 18:00 08/02/20 05:58 Acetaminophen 500 Mg Tablet PO 1,000 mg Q6HR ALEX Administration Apixaban 5 mg 07/24/20 09:00 08/02/20 08:21 Apixaban 5 Mg Tablet PO 5 mg Q12HR ALEX Administration Furosemide 20 mg 07/21/20 09:00 08/02/20 08:22 Furosemide 20 Mg Tablet PO 20 mg QAM ALEX Administration Levothyroxine Sodium 75 mcg 07/21/20 06:30 08/02/20 05:58 Levothyroxine Sodium 75 Mcg Tablet PO 75 mcg DAILY@0630 ALEX Administration Losartan Potassium 50 mg 07/21/20 09:00 08/02/20 08:22 Losartan Potassium 50 Mg Tablet PO 50 mg DAILY ALEX Administration Metoprolol Succinate 100 mg 07/20/20 21:00 08/02/20 08:21 Metoprolol Succinate Ext Rel 100 Mg Tabcr PO 100 mg Q12HR ALEX Administration Oxycodone HCl 2.5 mg 07/20/20 16:04 07/24/20 13:29 Oxycodone Hcl (*Crx) 2.5 Mg Tab Ir PO 2.5 mg Q4H PRN Administration Pain Rated 7-10 Radiology Results: ITS Impressions Wrist X-Ray 07/29/20 12:37 IMPRESSION: 1. Casted internally fixed left distal radial metaphyseal fracture. 2. Ulnar styloid base avulsion. Progress Note: A&P Assessment and Plan (1) Distal radius fracture, left: Code(s): S52.502A - Unspecified fracture of the lower end of left radius, initial encounter for closed fracture Status: Acute (2) Fracture of ulnar styloid: Code(s): S52.613A - Displaced fracture of unspecified ulna styloid process, initial encounter for closed fracture Status: Acute (3) Fracture of femoral neck, left, closed: Code(s): S72.002A - Fracture of unspecified part of neck of left femur, initial encounter for closed fracture Status: Acute (4) Chronic anticoagulation: Code(s): Z79.01 - nursing home (current) use of anticoagulants Status: Acute (5) Preoperative cardiovascular examination: Code(s): Z01.810 - Encounter for preprocedural cardiovascular examination Status: Acute (6) Recurrent falls: Code(s): R29.6 - Repeated falls Status: Acute (7) Venous insufficiency of both lower extremities: Code(s): I87.2 - Venous insufficiency (chronic) (peripheral) Status: Acute (8) Hypertension: Code(s): I10 - Essential (primary) hypertens
[2020-08-02 14:00] VITALS: BP 139/72; PULSE 78; RESP 18; TEMP 36.6; O2SAT 98
[2020-08-02 20:05] VITALS: BP 125/63; PULSE 65; RESP 18; TEMP 33.9; O2SAT 98
[2020-08-02 20:28] VITALS: PULSE 65
[2020-08-03] MEDS: ACETAMINOPHEN 500 MG TABLET 1000 MG PO ×4 (00:30→17:00)
[2020-08-03 06:00] VITALS: BP 142/74; PULSE 86; RESP 16; TEMP 36.3; O2SAT 99
[2020-08-03] MEDS: LEVOTHYROXINE SODIUM 75 MCG TABLET PO (06:13)
[2020-08-03] MEDS: FUROSEMIDE 20 MG TABLET PO (08:32)
[2020-08-03 08:33] VITALS: PULSE 86
[2020-08-03] MEDS: APIXABAN 5 MG TABLET PO ×2 (08:33→21:05)
[2020-08-03] MEDS: LOSARTAN POTASSIUM 50 MG TABLET PO (08:33)
[2020-08-03] MEDS: METOPROLOL SUCCINATE EXT REL 100 MG TABCR PO ×2 (08:33→21:06)
--- NOTE | 2020-08-03 10:11 | WPDNEURORHBP ---
Subjective Date/time seen: 08/03/20 10:11 Patient voices no complaints. Patient is seen during physical therapy. Patient feels prepared for discharge tomorrow. Review of Systems Review of Systems: All systems reviewed & are unremarkable except as noted in HPI and below Functional Status Ambulation Ability Ability to Ambulate 10 Feet: Standby Assistance Ability to Ambulate 50 Feet With 2 Turns: Contact Guard Ability to Ambulate 150 Feet: Contact Guard Ambulation Assistive Devices: Cane, Tee Transfers Ability Ability to Transfer In/Out of Chair: Contact Guard Exam Narrative: Exam Narrative: Head is normocephalic. Extraocular muscles are intact. Heart rate and rhythm is regular. Lungs are clear to auscultation. Abdomen is soft nontender. Left upper extremity is in a long-arm cast. Minimal edema is noted to the fingertips. No neurovascular compromise is detected. Right upper right lower extremity strength are 4-5. Left lower extremity strength is 4- to 3+. Transfers are contact guard. Gait is limited per Ortho request. Objective Data Vital Signs Vital Signs: Vital Signs - 24 hr 08/02/20 14:00 08/02/20 20:05 08/02/20 20:28 Temperature 36.6 C 33.9 C L Pulse Rate 78 65 65 Respiratory Rate 18 18 Blood Pressure 139/72 125/63 Pulse Oximetry 98 98 08/03/20 06:00 08/03/20 08:33 Temperature 36.3 C L Pulse Rate 86 86 Respiratory Rate 16 Blood Pressure 142/74 H Pulse Oximetry 99 Intake/Output Intake/Output: Intake & Output 07/31/20 08/01/20 08/02/20 08/03/20 22:59 22:59 23:59 23:59 Intake Total 360 Balance 360 Meds/Results Medications: Active Medications Generic Name Dose Route Start Last Admin Trade Name Freq PRN Reason Stop Dose Admin Acetaminophen 1,000 mg 07/20/20 18:00 08/03/20 06:13 Acetaminophen 500 Mg Tablet PO 1,000 mg Q6HR ALEX Administration Apixaban 5 mg 07/24/20 09:00 08/03/20 08:33 Apixaban 5 Mg Tablet PO 5 mg Q12HR ALEX Administration Furosemide 20 mg 07/21/20 09:00 08/03/20 08:32 Furosemide 20 Mg Tablet PO 20 mg QAM ALEX Administration Levothyroxine Sodium 75 mcg 07/21/20 06:30 08/03/20 06:13 Levothyroxine Sodium 75 Mcg Tablet PO 75 mcg DAILY@0630 ALEX Administration Losartan Potassium 50 mg 07/21/20 09:00 08/03/20 08:33 Losartan Potassium 50 Mg Tablet PO 50 mg DAILY ALEX Administration Metoprolol Succinate 100 mg 07/20/20 21:00 08/03/20 08:33 Metoprolol Succinate Ext Rel 100 Mg Tabcr PO 100 mg Q12HR ALEX Administration Oxycodone HCl 2.5 mg 07/20/20 16:04 07/24/20 13:29 Oxycodone Hcl (*Crx) 2.5 Mg Tab Ir PO 2.5 mg Q4H PRN Administration Pain Rated 7-10 Radiology Results: ITS Impressions Wrist X-Ray 07/29/20 12:37 IMPRESSION: 1. Casted internally fixed left distal radial metaphyseal fracture. 2. Ulnar styloid base avulsion. Progress Note: A&P Assessment and Plan (1) Distal radius fracture, left: Code(s): S52.502A - Unspecified fracture of the lower end of left radius, initial encounter for closed fracture Status: Acute (2) Fracture of ulnar styloid: Code(s): S52.613A - Displaced fracture of unspecified ulna styloid process, initial encounter for closed fracture Status: Acute (3) Fracture of femoral neck, left, closed: Code(s): S72.002A - Fracture of unspecified part of neck of left femur, initial encounter for closed fracture Status: Acute (4) Chronic anticoagulation: Code(s): Z79.01 - senior living (current) use of anticoagulants Status: Acute (5) Recurrent falls: Code(s): R29.6 - Repeated falls Status: Acute (6) Venous insufficiency of both lower extremities: Code(s): I87.2 - Venous insufficiency (chronic) (peripheral) Status: Acute (7) Bladder incontinence: Code(s): R32 - Unspecified urinary incontinence Status: Acute (8) Hypertension: Code(s): I10 -
[2020-08-03 14:00] VITALS: BP 94/54; PULSE 74; RESP 16; TEMP 36; O2SAT 98
[2020-08-03 20:00] VITALS: PULSE 99; RESP 18; O2SAT 97
[2020-08-03 21:06] VITALS: PULSE 80
[2020-08-03 21:55] VITALS: BP 113/51; PULSE 99; RESP 18; TEMP 36.2; O2SAT 97
[2020-08-04] MEDS: ACETAMINOPHEN 500 MG TABLET 1000 MG PO ×3 (00:22→11:54)
[2020-08-04 05:10] LABS: Basophils Absolute Auto 0.1 K/mm3 (0.0-0.1); Basophils Percent Auto 1.2 % (0.2-1.2); Eosinophils Absolute Auto 0.4 K/mm3 (0-0.3); Eosinophils Percent Auto 8.2 % (0-4.4); Hematocrit 39.2 % (37.0-47.0); Hemoglobin 12.6 g/dL (12.0-15.0); Immature Granulocyte Absolute 0.01 K/mm3 (0.00-0.031); Immature Granulocyte Percent A 0.2 % (0-0.5); Lymphocytes Absolute Auto 1.52 K/mm3 (0.9-3.2); Lymphocytes Percent Auto 30.5 % (18.3-44.2); Mean Corpuscular HGB Conc 32.1 g/dl (32-36); Mean Corpuscular Volume 90.1 fl (80-100); Mean Platelet Volume 9.5 fl (7.4-10.4); Monocytes Absolute Auto 0.8 K/mm3 (0.1-0.6); Monocytes Percent Auto 15.2 % (2.6-8.5); Neutrophils Absolute Auto 2.2 K/mm3 (1.3-6.7); Neutrophils Percent Auto 44.7 % (45.5-73.1); Platelet Count Result 342 k/mm3 (150-375); Red Blood Count 4.35 M/mm3 (4.2-5.4); Red Cell Distribution Width 14.3 % (11.5-14.5)
[2020-08-04 05:27] LABS: Anion Gap 6 mmol/L (8-16); Blood Urea Nitrogen 29 mg/dL (7-17); Calcium 8.6 mg/dL (8.4-10.2); Carbon Dioxide 31 mmol/L (22-30); Chloride 101 mmol/L (98-107); Estimated CRCL calculation 61 ml/min; Estimated Glomerular Filt Rate > 60; Glucose 92 mg/dL (65-105); Potassium 4.1 mmol/L (3.4-5.0); Sodium 138 mmol/L (137-145)
[2020-08-04] MEDS: LEVOTHYROXINE SODIUM 75 MCG TABLET PO (05:41)
[2020-08-04 06:00] VITALS: BP 144/71; PULSE 74; RESP 16; TEMP 35.7; O2SAT 99
[2020-08-04 08:09] VITALS: PULSE 74
[2020-08-04] MEDS: FUROSEMIDE 20 MG TABLET PO (08:09)
[2020-08-04] MEDS: METOPROLOL SUCCINATE EXT REL 100 MG TABCR PO (08:09)
[2020-08-04] MEDS: LOSARTAN POTASSIUM 50 MG TABLET PO (08:10)
[2020-08-04] MEDS: APIXABAN 5 MG TABLET PO (08:10)
--- NOTE | 2020-08-04 12:47 | PM.DS ---
DS: Admitting Diagnosis Admitting Diagnosis Admitting Diagnosis: left femoral neck fracture comminuted 3 part intra-articular left distal radius fracture with ulnar styloid fracture with intra-articular DS: Discharge Diagnosis Discharge Diagnosis (1) Fracture of femoral neck, left, closed: Code(s): S72.002A - Fracture of unspecified part of neck of left femur, initial encounter for closed fracture Status: Acute (2) Distal radius fracture, left: Code(s): S52.502A - Unspecified fracture of the lower end of left radius, initial encounter for closed fracture Status: Acute (3) Fracture of ulnar styloid: Code(s): S52.613A - Displaced fracture of unspecified ulna styloid process, initial encounter for closed fracture Status: Acute (4) Chronic anticoagulation: Code(s): Z79.01 - nursing home (current) use of anticoagulants Status: Acute (5) A-fib: Qualifiers: Atrial fibrillation type: permanent Qualified Code(s): I48.21 - Permanent atrial fibrillation Code(s): I48.91 - Unspecified atrial fibrillation Status: Acute (6) Anemia: Code(s): D64.9 - Anemia, unspecified Status: Acute (7) Hyponatremia: Code(s): E87.1 - Hypo-osmolality and hyponatremia Status: Acute (8) Recurrent falls: Code(s): R29.6 - Repeated falls Status: Acute (9) Venous insufficiency of both lower extremities: Code(s): I87.2 - Venous insufficiency (chronic) (peripheral) Status: Acute (10) Bladder incontinence: Code(s): R32 - Unspecified urinary incontinence Status: Acute (11) Hypertension: Code(s): I10 - Essential (primary) hypertension Status: Acute (12) Hypothyroidism determined by thyroid function test: Code(s): E03.9 - Hypothyroidism, unspecified; R94.6 - Abnormal results of thyroid function studies Status: Acute DS: Summary Hospital Course Hospital Course: see dictation Time Spent with Patient Time attestation: Total time spent providing and/or coordinating discharge services: 85-year-old right-handed female who presented to [facility] on July 14, [facility] after a fall. Patient sustained a comminuted 3 part intra-articular left distal radial fracture with ulnar styloid fracture with intra-articular displacement and a displaced left subcapital feet femoral neck fracture. Patient underwent on July 16 a left cemented bipolar hemiarthroplasty and open reduction internal fixation of the left distal radial fracture. Patient is nonweightbearing to the left upper extremity and weight-bearing as tolerated through the left lower extremity. patient was seen by Cardiology and consult and recommended Eliquis 5 mg b.i.d. which she remains on at time of discharge PT. Patient is to follow-up with cardiology. Patient remained medically stable. Patient was modified independent with wheelchair walker ADLs.ADMISSION FUNCTION: Eating Set Up Only Oral Care substantial assistance Toileting Hygiene dependent Shower/Bathing substantial assistance Upper Body Dressing substantial assistance Lower Body Dressing substantial assistance Donning/[place] Footwear dependent Rolling Left and Right substantial assistance Sit to Lying substantial assistance Lying to Sitting substantial is Sit to Stand substantial assistance Bed to Chair Transfers substantial assistance Toilet Transfers of substantial assistance Car Transfers substantial assistance Walking 10' substantial assist Walking 50' with Two Turns unable Walking 150' unable Curb or Step unable 4 Steps unable 12 Steps unable Picking Up Object substantial assistance wheelchair 50 feet, substantial assistance Wheelchair Mobility 150' unable GOALS: Eating INDEPENDENT Oral Care INDEPENDENT Toileting Hygiene INDEPENDENT Shower/Bathing supervision Upper Body Dressing INDEPENDENT Lower Body Dressing INDEPENDENT Donning/[place]
== END 2020-08-04 13:45 | disposition home health service (06) | DRG 560 ==
PROVIDERS: Admitting Provider Psychiatry & Neurology Neurology; PCP Family Medicine; Visit Provider Physical Medicine & Rehabilitation
DX: S72.012D Unspecified intracapsular fracture of left femur, subsequent encounter for closed fracture with routine healing (principal); I48.21 Permanent atrial fibrillation; Z96.642 Presence of left artificial hip joint; S52.572D Other intraarticular fracture of lower end of left radius, subsequent encounter for closed fracture with routine healing; S52.612D Displaced fracture of left ulna styloid process, subsequent encounter for closed fracture with routine healing; R32 Unspecified urinary incontinence; D64.9 Anemia, unspecified; E03.9 Hypothyroidism, unspecified; I87.2 Venous insufficiency (chronic) (peripheral); I10 Essential (primary) hypertension; M16.11 Unilateral primary osteoarthritis, right hip; Z85.038 Personal history of other malignant neoplasm of large intestine; Z98.890 Other specified postprocedural states; Z85.44 Personal history of malignant neoplasm of other female genital organs; Z79.01 Long term (current) use of anticoagulants; W19.XXXD Unspecified fall, subsequent encounter; Z47.1 Aftercare following joint replacement surgery
CPT/HCPCS: 36415; 73110; 80048; 85025; 97110; 97116; 97161; 97166; 97530; 97535; 97542; A9270

== ENCOUNTER 2022-08-08 13:46 | Outpatient (CLI) | payer MEDICARE, SELFPAY ==
[2022-08-08 14:27] LABS: Hematocrit 47.5 % (37.0-47.0); Hemoglobin 15.4 g/dL (12.0-15.0); Mean Corpuscular HGB Conc 32.4 g/dl (32-36); Mean Corpuscular Hemoglobin 30.1 pg (26-34); Mean Corpuscular Volume 92.8 fl (80-100); Mean Platelet Volume 10.1 fl (7.4-10.4); Platelet Count Result 294 k/mm3 (150-375); Red Blood Count 5.12 M/mm3 (4.2-5.4); White Blood Count 8.6 K/mm3 (4.5-10.0)
[2022-08-08 14:43] LABS: Alanine Aminotransferase 20 U/L (6-35); Albumin Level 4.6 g/dL (3.5-5.1); Alkaline Phosphatase 116 U/L (38-126); Anion Gap 8 mmol/L (8-16); Aspartate Amino Transferase 27 U/L (14-36); Bilirubin,Total 0.5 mg/dL (0.2-1.3); Blood Urea Nitrogen 28 mg/dL (7-17); Carbon Dioxide 33 mmol/L (22-30); Chloride 96 mmol/L (98-107); Estimated Glomerular Filt Rate 53; Glucose 118 mg/dL (65-110); Potassium 4.1 mmol/L (3.4-5.0); Sodium 137 mmol/L (137-145)
[2022-08-08 15:23] LABS: Free T4 Free Thyroxine 1.74 ng/mL (0.78-2.19)
== END 2022-08-08 13:47 | disposition home or self-care (01) ==
PROVIDERS: PCP Family Medicine; Visit Provider Physician Assistant
DX: E03.9 Hypothyroidism, unspecified (principal); I10 Essential (primary) hypertension
CPT/HCPCS: 36415; 80053; 84439; 84443; 85027

== ENCOUNTER 2023-02-28 11:25 | Outpatient (CLI) | payer MEDICARE, SELFPAY ==
[2023-02-28 12:08] LABS: Basophils Percent Auto 0.3 % (0.2-1.2); Eosinophils Absolute Auto 0.1 K/mm3 (0-0.3); Eosinophils Percent Auto 0.7 % (0-4.4); Hematocrit 44.7 % (37.0-47.0); Hemoglobin 14.1 g/dL (12.0-15.0); Immature Granulocyte Absolute 0.03 K/mm3 (0.00-0.031); Immature Granulocyte Percent A 0.3 % (0-0.5); Lymphocytes Absolute Auto 0.97 K/mm3 (0.9-3.2); Lymphocytes Percent Auto 10.7 % (18.3-44.2); Mean Corpuscular HGB Conc 31.5 g/dl (32-36); Mean Corpuscular Hemoglobin 28.4 pg (26-34); Mean Corpuscular Volume 89.9 fl (80-100); Mean Platelet Volume 10.4 fl (7.4-10.4); Monocytes Percent Auto 10.5 % (2.6-8.5); Neutrophils Percent Auto 77.5 % (45.5-73.1); Platelet Count Result 302 k/mm3 (150-375); Red Blood Count 4.97 M/mm3 (4.2-5.4); Red Cell Distribution Width 13.8 % (11.5-14.5)
[2023-02-28 12:18] LABS: Alanine Aminotransferase 13 U/L (6-35); Albumin Level 4.3 g/dL (3.5-5.1); Alkaline Phosphatase 98 U/L (38-126); Anion Gap 7 mmol/L (8-16); Aspartate Amino Transferase 23 U/L (14-36); Bilirubin,Total 0.7 mg/dL (0.2-1.3); Blood Urea Nitrogen 27 mg/dL (7-17); Calcium 9.6 mg/dL (8.4-10.2); Carbon Dioxide 33 mmol/L (22-30); Chloride 94 mmol/L (98-107); Estimated Glomerular Filt Rate 47; Glucose 120 mg/dL (65-110); Potassium 3.9 mmol/L (3.4-5.0); Sodium 134 mmol/L (137-145)
[2023-02-28 12:20] LABS: INR 1.1; Prothrombin Time 14.9 Seconds (11.1-14.7)
== END 2023-02-28 11:26 | disposition home or self-care (01) ==
PROVIDERS: PCP Family Medicine; Visit Provider Internal Medicine Cardiovascular Disease
DX: I48.20 Chronic atrial fibrillation, unspecified (principal); R63.4 Abnormal weight loss
CPT/HCPCS: 36415; 80053; 84443; 85025; 85610

== ENCOUNTER 2023-09-26 10:37 | Outpatient (CLI) | payer MEDICARE, SELFPAY ==
--- NOTE | ~2023-09-26 | XR_ITS ---
EXAMINATION: XR knee RT 3V DATE: 09/26/2023 11:05 INDICATION: Unspecified fall, initial encounter. TECHNIQUE: 3 views of right knee were obtained. COMPARISON: None. FINDINGS: Bone alignment is normal. No fracture. There is moderate osteoarthritis of medial compartme nt and mild osteoarthritis of lateral and patellofemoral compartments. No knee joint effusion. There is superficial infrapatellar bursitis. IMPRESSION: 1. Moderate right knee osteoarthritis. Reviewed, dictated and finalized at location A.
== END 2023-09-26 10:38 ==
PROVIDERS: PCP Physician Assistant; Visit Provider Physician Assistant
DX: M17.11 Unilateral primary osteoarthritis, right knee (principal); W19.XXXA Unspecified fall, initial encounter
CPT/HCPCS: 73562

== ENCOUNTER 2023-11-01 10:01 | Outpatient (CLI) | payer MEDICARE, SELFPAY ==
[2023-11-01 10:46] LABS: Basophils Absolute Auto 0.1 K/mm3 (0.0-0.1); Basophils Percent Auto 0.6 % (0.2-1.2); Eosinophils Absolute Auto 0.3 K/mm3 (0-0.3); Hematocrit 44.5 % (37.0-47.0); Immature Granulocyte Absolute 0.02 K/mm3 (0.00-0.031); Immature Granulocyte Percent A 0.3 % (0-0.5); Lymphocytes Absolute Auto 1.79 K/mm3 (0.9-3.2); Lymphocytes Percent Auto 23.1 % (18.3-44.2); Mean Corpuscular HGB Conc 31.5 g/dl (32-36); Mean Corpuscular Hemoglobin 29.3 pg (26-34); Mean Corpuscular Volume 93.1 fl (80-100); Mean Platelet Volume 10.4 fl (7.4-10.4); Monocytes Absolute Auto 0.8 K/mm3 (0.1-0.6); Monocytes Percent Auto 9.8 % (2.6-8.5); Neutrophils Absolute Auto 4.8 K/mm3 (1.3-6.7); Neutrophils Percent Auto 62.2 % (45.5-73.1); Platelet Count Result 348 k/mm3 (150-375); Red Blood Count 4.78 M/mm3 (4.2-5.4); Red Cell Distribution Width 13.5 % (11.5-14.5); White Blood Count 7.8 K/mm3 (4.5-10.0)
[2023-11-01 10:56] LABS: Alanine Aminotransferase 11 U/L (6-35); Albumin Level 4.6 g/dL (3.5-5.1); Alkaline Phosphatase 101 U/L (38-126); Anion Gap 9 mmol/L (4-12); Aspartate Amino Transferase 26 U/L (14-36); Bilirubin,Total 0.6 mg/dL (0.2-1.3); Blood Urea Nitrogen 19 mg/dL (7-17); Calcium 9.3 mg/dL (8.4-10.2); Carbon Dioxide 30 mmol/L (22-30); Chloride 98 mmol/L (98-107); Estimated Glomerular Filt Rate 47; Glucose 151 mg/dL (65-110); Potassium 3.7 mmol/L (3.4-5.0); Sodium 137 mmol/L (137-145)
[2023-11-01 11:37] LABS: Hemoglobin A1C 5.5 % (<5.7)
[2023-11-01 11:49] LABS: Free T4 Free Thyroxine 2.05 ng/mL (0.78-2.19)
== END 2023-11-01 10:02 | disposition home or self-care (01) ==
LOC: ANHLAB 10:05
PROVIDERS: PCP Physician Assistant; Visit Provider Physician Assistant
DX: R73.9 Hyperglycemia, unspecified (principal); E03.9 Hypothyroidism, unspecified; I10 Essential (primary) hypertension; I48.91 Unspecified atrial fibrillation; R94.6 Abnormal results of thyroid function studies; E07.9 Disorder of thyroid, unspecified; D64.9 Anemia, unspecified
CPT/HCPCS: 36415; 80053; 83036; 84439; 84443; 85025

== ENCOUNTER 2024-01-13 16:11 | Observation (INO) | payer MEDICARE, SELFPAY ==
--- NOTE | ~2024-01-13 | CT_ITS ---
EXAMINATION: CT cervical spine wo con DATE: 01/13/2024 18:22 INDICATION: glf TECHNIQUE: Computed tomography (CT) of the cervical spine was performed without intravenous contrast. Automated exposure control and iterative reconstruction technique were employed. The dose-length pro duct was 119.07 mGy-cm. COMPARISON: None. FINDINGS: Vertebral Body Alignment: Mild reversal of the cervical lordosis centered at C3. Multilevel grade 1 l istheses, likely on a degenerative basis. Craniocervical and atlantoaxial alignment: Moderate degenerative change. Alignment intact. Osseous structures/fracture: No evidence of a lytic or blastic process in the visualized spine. No e vidence of acute fracture. Bilateral mastoid fluid. Cervical soft tissues: The paraspinal soft tissues planes are maintained. Biapical pleural scarring. Degenerative changes: Degenerative changes, without severe neural foraminal or central canal narrowin g. IMPRESSION: No acute fracture or traumatic malalignment in the cervical spine. Reviewed, dictated and finalized at location K.
--- NOTE | ~2024-01-13 | XR_ITS ---
EXAMINATION: XR tibia fibula LT 2V DATE: 01/14/2024 00:35 INDICATION: Left lower leg pain. TECHNIQUE: 2 views of left tibia and fibula on 4 radiographs were obtained. COMPARISON: Left knee radiographs 01/13/2024 FINDINGS: Bone alignment is normal. No fracture. There is moderate left knee osteoarthritis. IMPRESSION: 1. Moderate left knee osteoarthritis. Reviewed, dictated and finalized at location A.
--- NOTE | ~2024-01-13 | CT_ITS ---
EXAMINATION: CTA brain carotid DATE: 01/15/2024 14:55 INDICATION: Cerebral aneurysm. TECHNIQUE: Computed tomographic angiography (CTA) of the head was performed without and with 100 mL O mnipaque-350 intravenous contrast. CTA of the neck was performed with intravenous contrast. Automated exposure control and iterative reconstruction technique were employed. The dose-length product was 1 558.18 mGy-cm. Maximum intensity projection and volume rendered 3D-reconstructions were created by tammie darby technologist on a separate workstation. COMPARISON: Head CT 01/13/2024 FINDINGS: HEAD CTA: There are scattered areas of low attenuation in the cerebral white matter. There is no intr acranial hemorrhage, acute infarction, or abnormal intracranial mass lesion. The ventricles are angelita l in size. There are likely changes of ocular lens replacement surgeries. The paranasal sinuses are c lear. There are small bilateral mastoid effusions. Left vertebral artery is dominant. There is no sig nificant stenosis of basilar artery or the posterior cerebral arteries. There is moderate stenosis of the proximal right posterior communicating artery. The left posterior communicating artery is normal . There is no significant stenosis of the intracranial internal carotid arteries or anterior or middl e cerebral arteries. Anterior communicating artery is normal. There is no aneurysm. NECK CTA: There is mild scarring at the lung apices. There are no pathologically enlarged lymph nodes . There is no significant stenosis of the vertebral arteries. There is plaque in the proximal interna l arteries. There is 39% stenosis of the proximal right internal carotid artery relative to normal di stal artery lumen diameter (NASCET criteria). There is 25% stenosis of the proximal left internal car otid artery relative to normal distal artery lumen diameter. There is severe cervical spondylosis. IMPRESSION: 1. No aneurysm. 2. Moderate nonspecific cerebral white matter disease, which likely represents chronic small vessel i schemic disease. 3. Moderate stenosis of right posterior communicating artery. 4. 39% stenosis of the proximal right internal carotid artery relative to normal distal artery lumen diameter (NASCET criteria). 5. 25% stenosis of the proximal left internal carotid artery relative to normal distal artery lumen d iameter. Reviewed, dictated and finalized at location A. IMPRESSION: 1. No aneurysm. 2. Moderate nonspecific cerebral white matter disease, which likely represents chronic small vessel ischemic disease. 3. Moderate stenosis of right posterior communicating artery. 4. 39% stenosis of the proximal right internal carotid artery relative to angelita l distal artery lumen diameter (NASCET criteria). 5. 25% stenosis of the proximal left internal carotid artery relative to normal distal artery lumen diameter.
--- NOTE | ~2024-01-13 | XR_ITS ---
EXAM: XR knee LT 3V DATE: 01/13/2024 18:10 HISTORY: PT FELL . COMPARISON: None available. FINDINGS: Decreased mineralization. No fracture or dislocation. No lytic or blastic lesion. Moderate left knee osteoarthritis. Quadriceps enthesopathy. No erosion or periosteal change. Small-volume rom nt fluid. Vascular calcifications. IMPRESSION: No acute osseous finding in the left knee. Reviewed, dictated and finalized at location K.
--- NOTE | ~2024-01-13 | US_ITS ---
EXAMINATION: US venous doppler [facility] DATE: 01/14/2024 11:34 INDICATION: Left lower limb pain. TECHNIQUE: Grayscale ultrasound images without and with compression and Doppler ultrasound images of the left lower extremity veins were obtained. COMPARISON: None. FINDINGS: The visualized portions of left common femoral vein, profunda (deep) femoral vein, femoral vein, popl iteal vein, peroneal veins, posterior tibial veins, and greater saphenous vein outflow are patent. IMPRESSION: 1. No deep venous thrombosis. Reviewed, dictated and finalized at location A.
--- NOTE | ~2024-01-13 | CT_ITS ---
EXAMINATION: CT brain wo con DATE: 01/13/2024 18:22 INDICATION: glf . TECHNIQUE: Computed tomography (CT) of the head was performed without intravenous contrast. The mA wa s adjusted according to patient size. Iterative reconstruction technique was employed. The dose-lengt h product was 605.33 mGy-cm. COMPARISON: None. FINDINGS: No acute intracranial hemorrhage or extra-axial fluid collection. No hydrocephalus, mass, or herniation. No acute ischemic infarct. Unremarkable dural venous sinus attenuation. No acute osseous abnormality. Bilateral mastoid fluid, the remaining aerated spaces are clear. Moderate atrophy and chronic white matter change. Atherosclerotic intracranial calcification. Bilater al lens replacements. Possible 4 mm saccular outpouching projecting off the left MCA, likely M1 segme nt. IMPRESSION: No acute intracranial process. Possible 4 mm aneurysm projecting off the left MCA M1 segment. Of note, no subarachnoid hemorrhage is detected. Reviewed, dictated and finalized at location K. IMPRESSION: No acute intracranial process. Possible 4 mm aneurysm projecting off the left MCA M1 segment. Of note, no suba rachnoid hemorrhage is detected.
[2024-01-13 17:31] VITALS: BP 124/55; PULSE 76; RESP 14; TEMP 36.3; O2SAT 97
[2024-01-13 23:24] VITALS: BP 123/69; O2SAT 96
--- NOTE | 2024-01-13 23:28 | ED.FALL ---
HPI - Fall General Chief Complaint: Fall <FRANSISCO Costa Last Filed: 01/14/24 03:15> Stated Complaint: GLF yesterday, left knee pain <FRANSISCO Costa Last Filed: 01/14/24 03:15> Time Seen by Provider: 01/13/24 23:22 <FRANSISCO Costa Last Filed: 01/14/24 03:15> Source: patient and family <FRANSISCO Costa Last Filed: 01/14/24 03:15> Mode of arrival: EMS <FRANSISCO Costa Filed: 01/14/24 03:15> Limitations: no limitations <FRANSISCO Costa Filed: 01/14/24 03:15> History of Present Illness HPI Narrative: Patient is an 89 y/o female who presents to the ED via EMS with c/o a fall. Patient has history of dementia and is unable to tell me distinctly how the fall occurred. Family at bedside assisted in providing information. They report patient had a ground level mechanical fall on Monday while attempting to step down from a bar stool height chair. She landed onto her left knee. They are unsure if she hit her head. She has been complaining of pain throughout her left knee, difficulty ambulating due to the pain today, which prompted their presentation. Family does report patient has been somewhat altered today and having episodes of staring off into space. They wanted patient to be evaluated. Patient denies any other concerns at this time. Patient is on Eliquis d/t hx of afib. <FRANSISCO Costa Last Filed: 01/14/24 03:15> Related Data Home Medications: Home Medications Medication Instructions Recorded Confirmed acetaminophen 500 mg tablet 1,000 mg PO Q6H PRN Pain (Scale 01/14/24 01/14/24 Score 1-3) apixaban 5 mg tablet (Eliquis) 5 mg PO BID 01/14/24 01/14/24 buspirone 5 mg tablet 5 mg PO BID 01/14/24 01/14/24 donepezil 10 mg tablet 10 mg PO HS 01/14/24 01/14/24 furosemide 20 mg tablet 20 mg PO DAILY 01/14/24 01/14/24 levothyroxine 75 mcg tablet 75 mcg PO QAM 01/14/24 01/14/24 losartan 50 mg tablet 50 mg PO DAILY 01/14/24 01/14/24 memantine 10 mg tablet 10 mg PO BID 01/14/24 01/14/24 metoprolol succinate 100 mg 100 mg PO QAM 01/14/24 01/14/24 tablet,extended release 24 hr <Jaqui Blackmon PA-C - Last Filed: 01/14/24 03:15> Allergies/Adverse Reactions: Allergies Allergy/AdvReac Type Severity Reaction Status Date / Time No Known Allergies Allergy Verified 01/13/24 16:13 <Jaqui Blackmon PA-C - Last Filed: 01/14/24 03:15> Review of Systems Review of Systems: All systems reviewed & are unremarkable except as noted in HPI. <Jaqui Blackmon PA-C - Last Filed: 01/14/24 03:15> All systems reviewed & are unremarkable except as noted in HPI and below <Jaqui Blackmon PA-C - Last Filed: 01/14/24 03:15> FOR[facility]LY [facility] Past Medical History Medical History: Medical History A-fib Acute pain of right knee Anemia Anxiety disorder, unspecified Bladder incontinence Chronic a-fib Colon cancer Counseling for living will Distal radius fracture, left Essential (primary) hypertension Fall Fracture of femoral neck, left, closed Fracture of ulnar styloid Hx of malignant neoplasm of colon Hx of malignant neoplasm of vulva Hypertension Hyponatremia Hypothyroidism determined by thyroid function test Hypothyroidism, unspecified Incontinence of urine in female Iron deficiency anemia due to chronic blood loss Malignant neoplasm of ascending colon MDD (major depressive disorder), recurrent episode, mild Memory change Mixed hyperlipidemia Postural dizziness with presyncope Preoperative cardiovascular examination Primary vulvar squamous cell carcinoma Venous insufficiency (chronic) (peripheral) Venous insufficiency of both lower extremities Ventral hernia without obstruction or gangrene Vitamin D deficiency, unspecified Vulva cancer <Jaqui Blackmon PA-C - Last Filed: 01/14/24 03:15> Surg
[2024-01-13 23:31] VITALS: BP 123/64; O2SAT 96
--- NOTE | 2024-01-14 00:08 | ECG_ITS ---
Test Date: 2024-01-14 01:30:21 Measurements Intervals [place] Rate: 74 P: 0 VA: 0 QRS: 96 QRSD: 88 T: 46 QT: 415 QTc: 463 Interpretive Statements ATRIAL FIBRILLATION BORDERLINE RIGHT AXIS DEVIATION [QRS AXIS > 90] POSSIBLE RIGHT VENTRICULAR CONDUCTION DELAY [RSR (QR) IN V1/V2] NONSPECIFIC ST & T-WAVE ABNORMALITY No previous ECG available for comparison Electronically Signed On 01-14-2024 10:42:10 CDT by Glenna Gomez M.D.
[2024-01-14 01:28] LABS: Basophils Percent Auto 0.3 % (0.2-1.2); Eosinophils Absolute Auto 0.2 K/mm3 (0-0.3); Hematocrit 43.5 % (37.0-47.0); Hemoglobin 13.9 g/dL (12.0-15.0); Immature Granulocyte Absolute 0.04 K/mm3 (0.00-0.031); Immature Granulocyte Percent A 0.4 % (0-0.5); Lymphocytes Absolute Auto 1.71 K/mm3 (0.9-3.2); Mean Corpuscular Hemoglobin 29.3 pg (26-34); Mean Corpuscular Volume 91.8 fl (80-100); Mean Platelet Volume 9.9 fl (7.4-10.4); Monocytes Absolute Auto 1.1 K/mm3 (0.1-0.6); Monocytes Percent Auto 11.1 % (2.6-8.5); Neutrophils Absolute Auto 6.5 K/mm3 (1.3-6.7); Neutrophils Percent Auto 68.2 % (45.5-73.1); Platelet Count Result 243 k/mm3 (150-375); Red Blood Count 4.74 M/mm3 (4.2-5.4); Red Cell Distribution Width 13.8 % (11.5-14.5); White Blood Count 9.5 K/mm3 (4.5-10.0)
[2024-01-14 01:38] LABS: Alanine Aminotransferase 11 U/L (6-35); Alkaline Phosphatase 97 U/L (38-126); Anion Gap 9 mmol/L (4-12); Aspartate Amino Transferase 27 U/L (14-36); Bilirubin,Total 0.6 mg/dL (0.2-1.3); Blood Urea Nitrogen 21 mg/dL (7-17); Carbon Dioxide 29 mmol/L (22-30); Chloride 97 mmol/L (98-107); Estimated CRCL calculation 29 ml/min; Estimated Glomerular Filt Rate 47; Glucose 122 mg/dL (65-110); Magnesium 2.2 mg/dL (1.6-2.3); Potassium 3.7 mmol/L (3.4-5.0); Sodium 135 mmol/L (137-145)
[2024-01-14 01:39] VITALS: BP 154/83; PULSE 77; RESP 16; O2SAT 96
[2024-01-14 01:51] LABS: Add Urine Microscopic? NO; Appearance Urine Clear (Clear); Bilirubin Urine Negative (Negative); Blood Urine Negative (Negative); Color Urine Yellow (Yellow); Glucose Urine UA Negative (Negative); Ketones Urine Negative (Negative); Leukocyte Esterase Ur Negative LEU/UL (Negative); Nitrate Urine Negative (Negative); Protein Urine Negative (Negative); Specific Grav Ur 1.015 (1.001-1.035)
[2024-01-14 02:31] VITALS: BP 142/75; RESP 17; O2SAT 97
[2024-01-14 06:19] VITALS: BMI 23.6
--- NOTE | 2024-01-14 06:26 | ADMGEN ---
This patient, Jossy Rasheed, was admitted to 3 Med Surg Room 317-01. Patient/family oriented to hospital policies and general routines including ID bracelet, bed and alarms, visiting hours, pain management, procedures, bathroom and other care routines, personal items, smoking policy, room service/diet, and visiting hours. Information on how to activate the Rapid Response Team has been discussed. Patient/Family are encouraged to report perceived risks to care and to ask questions if they do not understand what they are told or what they should do.
[2024-01-14 20:00] VITALS: O2SAT 96
[2024-01-14 21:26] VITALS: BP 130/66; PULSE 81; RESP 18; TEMP 36.8; O2SAT 96
--- NOTE | 2024-01-14 22:01 | PM.IMHP ---
H&P: HPI History of Present Illness Date/Time: 01/14/24 13:05 Chief Complaint: Jossy Rasheed is an 89 year old female hx dementia, afib, admitted after a fall. Patient reportedly had a ground level mechanical fall on Monday while attempting to step down from a chair that is bar stool height and landed on her left knee. She has had difficulty ambulating, pain to her knee when bending it. She also reports pain to her anterior lower leg. At baseline, she does not drive or use the stove. Has been living in her home independently, but family checks on her daily, manages her medications. In the ER, VSS. Patient may be interested in short term rehab if needed. May need a walker. CT in the ED showed a 4mm aneurysm projection off the left MCA [place] segment. X-ray leg tib/fib no fracture. PMFSH Past Medical History Medical History A-fib Acute pain of right knee Anemia Anxiety disorder, unspecified Bladder incontinence Chronic a-fib Colon cancer Counseling for living will Distal radius fracture, left Essential (primary) hypertension Fall Fracture of femoral neck, left, closed Fracture of ulnar styloid Hx of malignant neoplasm of colon Hx of malignant neoplasm of vulva Hypertension Hyponatremia Hypothyroidism determined by thyroid function test Hypothyroidism, unspecified Incontinence of urine in female Iron deficiency anemia due to chronic blood loss Malignant neoplasm of ascending colon MDD (major depressive disorder), recurrent episode, mild Memory change Mixed hyperlipidemia Postural dizziness with presyncope Preoperative cardiovascular examination Primary vulvar squamous cell carcinoma Venous insufficiency (chronic) (peripheral) Venous insufficiency of both lower extremities Ventral hernia without obstruction or gangrene Vitamin D deficiency, unspecified Vulva cancer Surgical History Surgical History H/O hemicolectomy H/O left wrist surgery H/O uvulectomy History of left hip hemiarthroplasty Family History Family History Mother Carcinoma of colon, Onset Age: 75 Patient's mother is Father Family history of Alzheimer's disease, Onset Age: 75 Patient's father is Social History Social History Social History: Smoking status: Never smoker Second hand tobacco smoke exposure: Yes Alcohol intake: never Substance use: never Substance use type: does not use Do You Feel Safe in your Home?: Yes Lack of Transportation: No Lack of Food: Never True Current Housing: I Have Housing Concerned About Future Housing: No Difficulty Paying Gas/Electric Bills: No Difficulty Paying for Meds: No Currently Unemployed: No Education: High School Diploma/GED Difficulty w/ Childcare or Family Care: No Living arrangements: with family Occupation/Education: retired Gender identity (if verbalized by the patient): Female Sexual Orientation (if Verbalized by the Patient): Straight or Heterosexual Spiritual care concerns: No Meds Home Medications and Allergies Home Medications Medication Instructions Recorded Confirmed Type alendronate 70 mg tablet 70 mg PO WEEKLY #14 tabs 09/26/23 01/14/24 Rx acetaminophen 500 mg tablet 1,000 mg PO Q6H PRN Pain (Scale 01/14/24 01/14/24 History Score 1-3) apixaban 5 mg tablet (Eliquis) 5 mg PO BID 01/14/24 01/14/24 History buspirone 5 mg tablet 5 mg PO BID 01/14/24 01/14/24 History donepezil 10 mg tablet 10 mg PO HS 01/14/24 01/14/24 History furosemide 20 mg tablet 20 mg PO DAILY 01/14/24 01/14/24 History levothyroxine 75 mcg tablet 75 mcg PO QAM 01/14/24 01/14/24 History losartan 50 mg tablet 50 mg PO DAILY 01/14/24 01/14/24 History memantine 10 mg tablet 10 mg PO BID
[2024-01-14 23:00] VITALS: PULSE 80
[2024-01-14] MEDS: APIXABAN 5 MG TABLET PO (23:00)
[2024-01-14] MEDS: METOPROLOL SUCCINATE EXT REL 100 MG TABCR PO (23:00)
[2024-01-14] MEDS: DONEPEZIL HCL 10 MG TABLET PO (23:00)
[2024-01-14] MEDS: MEMANTINE 10 MG TABLET PO (23:00)
[2024-01-15 06:00] VITALS: BP 126/57; PULSE 78; RESP 18; TEMP 36.9; O2SAT 95
[2024-01-15] MEDS: LEVOTHYROXINE SODIUM 75 MCG TABLET PO (06:08)
[2024-01-15 08:30] LABS: Anion Gap 5 mmol/L (4-12); Blood Urea Nitrogen 18 mg/dL (7-17); Calcium 8.5 mg/dL (8.4-10.2); Carbon Dioxide 34 mmol/L (22-30); Chloride 99 mmol/L (98-107); Estimated CRCL calculation 32 ml/min; Estimated Glomerular Filt Rate 52; Glucose 89 mg/dL (65-110); Potassium 3.5 mmol/L (3.4-5.0); Sodium 138 mmol/L (137-145)
[2024-01-15] MEDS: FUROSEMIDE 20 MG TABLET PO (09:08)
[2024-01-15] MEDS: LOSARTAN POTASSIUM 50 MG TABLET PO (09:08)
[2024-01-15] MEDS: APIXABAN 5 MG TABLET PO ×2 (09:08→20:48)
[2024-01-15 09:09] VITALS: PULSE 78
[2024-01-15] MEDS: MEMANTINE 10 MG TABLET PO ×2 (09:09→17:04)
[2024-01-15] MEDS: METOPROLOL SUCCINATE EXT REL 100 MG TABCR 200 MG PO (09:09)
[2024-01-15 11:02] VITALS: BMI 23.6
--- NOTE | 2024-01-15 11:04 | PM.IMPN ---
Progress Note: A&P Assessment and Plan (1) Aneurysm: Code(s): I72.9 - Aneurysm of unspecified site Status: Acute (2) Difficulty walking: Code(s): R26.2 - Difficulty in walking, not elsewhere classified Status: Acute (3) Pain of left lower extremity: Code(s): M79.605 - Pain in left leg Status: Acute Plan 89 year old female hx dementia, afib, admitted after a fall. Patient reportedly had a ground level mechanical fall on Monday while attempting to step down from a chair that is bar stool height and landed on her left knee. She has had difficulty ambulating, pain to her knee when bending it. She also reports pain to her anterior lower leg.CT in the ED showed a 4mm aneurysm projection off the left MCA [place] segment. X-ray leg tib/fib no fracture. 1. fall+ physical deconditioning: await PT/OT will likely need placement case repairer following 2. brain aneurysm: CT head showed possible 4 mm aneurysm Await CTA head and neck asymptomatic 3. history of hypertension: Continue with metoprolol, losartan, Lasix 4. history of dementia: Continue with memantine, donepezil 5. history of hypothyroidism: Continue with levothyroxine 6. DVT prophylaxis: On Eliquis 7. code status: Full 8. disposition: Pending placement Time Spent With Patient Time with patient: 15 - 25 minutes Subjective Date/time seen: 01/15/24 11:04 Interval history: sitting in chair, no acute events overnight Review of Systems Review of Systems: All systems reviewed & are unremarkable except as noted in HPI and below Exam Narrative: General - Awake and alert. No acute distress Eyes - PERRLA, EOM intact ENT - No thrush, No erythema Neck - No noticeable or palpable swelling Lymph Nodes - No lymphadenopathy Cardiovascular - RRR no m/r/g, no JVD Lungs: Clear to auscultation, No wheezing, use of accessory muscles, no crackles or wheezes. Skin - Skin warm and dry, no wounds or rashes Abdomen - Normal bowel sounds, abdomen soft and nontender Extremities - Bilateral lower extremity edema, left more than right. No cyanosis or clubbing Musculoskeletal - 5/5 strength, normal range of motion, no swollen or erythematous joints. Neurological ? Alert and oriented x 2, CN 2-12 grossly intact. Psych: Normal mood and affect Objective Data Vital Signs Vital Signs: Vital Signs - 24 hr 01/14/24 21:26 01/14/24 20:00 01/14/24 23:00 Temperature 98.2 F Pulse Rate 81 80 Respiratory Rate 18 Blood Pressure 130/66 Pulse Oximetry 96 96 Oxygen Delivery Room Air 01/15/24 06:00 01/15/24 09:09 01/15/24 09:32 Temperature 98.4 F Pulse Rate 78 78 Respiratory Rate 18 Blood Pressure 126/57 L Pulse Oximetry 95 Oxygen Delivery Room Air Intake/Output Intake/Output: Intake & Output 01/12/24 01/13/24 01/14/24 01/15/24 23:59 23:59 23:59 23:59 Intake Total 360 120 Output Total 200 300 Balance 160 -180 Meds/Results Medications: Active Medications Generic Name Dose Route Start Last Admin Trade Name Freq PRN Reason Stop Dose Admin Acetaminophen 1,000 mg 01/14/24 22:00 Acetaminophen 500 Mg Tablet PO Q6H PRN Pain (Scale Score 1-3) Apixaban 5 mg 01/14/24 22:05 01/15/24 09:08 Apixaban 5 Mg Tablet PO 5 mg Q12HR ALEX Administration Donepezil HCl 10 mg 01/14/24 22:05 01/14/24 23:00 Donepezil Hcl 10 Mg Tablet PO 10 mg HS ALEX Administration Furosemide 20 mg 01/15/24 09:00 01/15/24 09:08 Furosemide 20 Mg Tablet PO 20 mg DAILY ALEX Administration Sodium Chloride 1,000 mls @ 100 mls/hr 01/14/24 23:35 Normal Saline Iv IV CONT 01/15/24 23:34 .Q10H ALEX Levothyroxine Sodium 75 mcg 01/15/24 06:30 01/15/24 06:08 Levothyroxine Sodium 75 Mcg Tablet PO 75 mcg DAILY@0630 ALEX Administration Losartan Potassium 50 mg 01/15/24 09:00 01/15/24 09:08 Losartan Potassium 50 Mg Tablet PO 50 mg DAILY ALEX Administratio
--- NOTE | 2024-01-15 13:02 | PCPTNOTE ---
On 01/15/24, the student, [Mary Luke], provided care and completed [facility] documentation on this patient. I have reviewed the student's documentation and agree with the findings.
[2024-01-15 14:00] VITALS: BP 140/68; PULSE 69; RESP 19; TEMP 36.8; O2SAT 99
[2024-01-15 20:47] VITALS: PULSE 83
[2024-01-15] MEDS: METOPROLOL SUCCINATE EXT REL 100 MG TABCR PO (20:47)
[2024-01-15] MEDS: DONEPEZIL HCL 10 MG TABLET PO (20:47)
[2024-01-15 21:02] VITALS: BP 119/62; PULSE 95; RESP 20; TEMP 36.5; O2SAT 97
[2024-01-16 05:14] VITALS: BP 113/63; PULSE 75; RESP 18; TEMP 36; O2SAT 96
[2024-01-16] MEDS: LEVOTHYROXINE SODIUM 75 MCG TABLET PO (05:52)
--- NOTE | 2024-01-16 08:25 | PM.IMPN ---
Progress Note: A&P Assessment and Plan (1) Aneurysm: Code(s): I72.9 - Aneurysm of unspecified site Status: Acute (2) Difficulty walking: Code(s): R26.2 - Difficulty in walking, not elsewhere classified Status: Acute (3) Pain of left lower extremity: Code(s): M79.605 - Pain in left leg Status: Acute Plan 89 year old female hx dementia, afib, admitted after a fall. Patient reportedly had a ground level mechanical fall on Monday while attempting to step down from a chair that is bar stool height and landed on her left knee. She has had difficulty ambulating, pain to her knee when bending it. 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 X-ray leg tib/fib no fracture. 1. fall+ physical deconditioning: await PT/OT will likely need placement pillowcase maker following 2. Carotid Stenosis-- CT head showed possible 4 mm aneurysm CTA head and neck no aneurysm, did show 39% stenosis of proximal right internal carotid and 25% stenosis of left internal carotid asymptomatic 3. history of hypertension: Continue with metoprolol, losartan, Lasix 4. history of dementia: Continue with memantine, donepezil 5. history of hypothyroidism: Continue with levothyroxine 6. DVT prophylaxis: On Eliquis 7. code status: Full 8. disposition: Pending placement Subjective Date/time seen: 01/16/24 08:25 Interval history: VSS, CBC and BMP normal 01/14 CTA no aneurysm, some stenosis 25-39% Review of Systems Review of Systems: All systems reviewed & are unremarkable except as noted in HPI and below Exam Narrative: General - Awake and alert. No acute distress Eyes - PERRLA, EOM intact ENT - No thrush, No erythema Neck - No noticeable or palpable swelling Lymph Nodes - No lymphadenopathy Cardiovascular - RRR no m/r/g, no JVD Lungs: Clear to auscultation, No wheezing, use of accessory muscles, no crackles or wheezes. Skin - Skin warm and dry, no wounds or rashes Abdomen - Normal bowel sounds, abdomen soft and nontender Extremities - Bilateral lower extremity edema, left more than right. No cyanosis or clubbing Musculoskeletal - 5/5 strength, normal range of motion, no swollen or erythematous joints. Neurological ? Alert and oriented x 2, CN 2-12 grossly intact. Psych: Normal mood and affect Objective Data Vital Signs Vital Signs: Vital Signs - 24 hr 01/15/24 09:09 01/15/24 09:32 01/15/24 10:49 Temperature Pulse Rate 78 Respiratory Rate Blood Pressure Pulse Oximetry Oxygen Delivery Room Air Room Air 01/15/24 09:09 01/15/24 14:00 01/15/24 20:47 Temperature 98.3 F Pulse Rate 69 83 Respiratory Rate 19 Blood Pressure 140/68 Pulse Oximetry 99 Oxygen Delivery Room Air 01/15/24 21:02 01/16/24 05:14 Temperature 97.7 F 96.8 F L Pulse Rate 95 75 Respiratory Rate 20 18 Blood Pressure 119/62 113/63 Pulse Oximetry 97 96 Oxygen Delivery Intake/Output Intake/Output: Intake & Output 01/13/24 01/14/24 01/15/24 01/16/24 23:59 23:59 23:59 23:59 Intake Total 360 478 0 Output Total 200 300 Balance 160 178 0 Meds/Results Medications: Active Medications Generic Name Dose Route Start Last Admin Trade Name Freq PRN Reason Stop Dose Admin Acetaminophen 1,000 mg 01/14/24 22:00 Acetaminophen 500 Mg Tablet PO Q6H PRN Pain (Scale Score 1-3) Apixaban 5 mg 01/14/24 22:05 01/15/24 20:48 Apixaban 5 Mg Tablet PO 5 mg Q12HR ALEX Administration Donepezil HCl 10 mg 01/14/24 22:05 01/15/24 20:47 Donepezil Hcl 10 Mg Tablet PO 10 mg HS ALEX Administration Furosemide 20 mg 01/15/24 09:00 01/15/24 09:08 Furosemide 20 Mg Tablet PO 20 mg DAILY ALEX Administration Levothyroxine Sodium 75 mcg 01/15/24 06:30 01/16/24 05:52 Levothyroxine Sodium 75 Mcg Tablet PO 75 mcg DAILY@0630 ALEX Administration Losartan Pot
[2024-01-16 08:32] VITALS: PULSE 79
[2024-01-16] MEDS: METOPROLOL SUCCINATE EXT REL 100 MG TABCR 200 MG PO (08:32)
[2024-01-16] MEDS: APIXABAN 5 MG TABLET PO (08:32)
[2024-01-16] MEDS: MEMANTINE 10 MG TABLET PO (08:32)
[2024-01-16] MEDS: FUROSEMIDE 20 MG TABLET PO (08:32)
[2024-01-16] MEDS: LOSARTAN POTASSIUM 50 MG TABLET PO (08:32)
--- NOTE | 2024-01-18 07:36 | PM.DS ---
DS: Admitting Diagnosis Discharge Date 01/16/24 Admitting Diagnosis Left leg pain DS: Discharge Diagnosis Discharge Diagnosis (1) Fall from ground level: Code(s): W18.30XA - Fall on same level, unspecified, initial encounter Status: Acute (2) Carotid stenosis: Code(s): I65.29 - Occlusion and stenosis of unspecified carotid artery Status: Acute DS: Summary Hospital Course Reason for hospitalization: Fall, evaluate possible aneurysm on Head CT Hospital Course: Left knee pain Fall X-ray knee and left tib/fib no fracture. Showed moderate left knee osteoarthritis. Therapy evaluated and recommended home. Abnormal Head CT Carotid stenosis Head CT in the ED showed possible 4mm aneurysm. Otherwise no acute findings, moderate atrophy and chronic white matter change. CTA was done and no aneurysm, showed 39% stenosis of the right internal carotid artery and 25% stenosis of the left internal carotid artery. Incidental finding. --On Apixaban, defer other medical management and follow up to PCP. Not currently on a statin, but unclear benefit given age Hyponatremia--mild, 135, resolved Status at Discharge Cognitive/behavioral status at discharge: Alert & Oriented x2, pleasant and cooperative Time Spent with Patient Time attestation: Total time spent providing and/or coordinating discharge services:45 minutes Exam Narrative: General - Awake and alert. No acute distress Eyes - PERRLA, EOM intact ENT - No thrush, No erythema Neck - No noticeable or palpable swelling Lymph Nodes - No lymphadenopathy Cardiovascular - RRR no m/r/g, no JVD Lungs: Clear to auscultation, No wheezing, use of accessory muscles, no crackles or wheezes. Skin - Skin warm and dry, no wounds or rashes Abdomen - Normal bowel sounds, abdomen soft and nontender Extremities - No edema, cyanosis or clubbing Musculoskeletal - 5/5 strength, normal range of motion, no swollen or erythematous joints. Neurological ? Alert and oriented x 2, CN 2-12 grossly intact. Psych: Normal mood and affect Discharge Plan Discharge Attending physician on discharge: Nati Messina Consulting providers: Samantha Stark; Luan Ramsey; Glenna Gomez; Robert Maurer V.; Justine Yeh Discharging Clinician: Nati Messina Patient Disposition: Home Health Service Activity: september shower Diet: heart healthy Wound Care Instructions: follow printed instructions Discharge Instructions: Per Care Coordination: [facility] will contact you prior to their first visit. [facility] will follow for PT/OT eval and treat. [facility] can be contacted at [phone]. Nursing please fax discharge paperwork to [phone]. Initially concern for aneursym on the head CT but no aneursym on conconfirmatory test (CTA). Drinking plenty of water today since you had contrast yesterday for the Ct. The test showed narrowing of the carotid arteries, but you are on a blood thinner. You can talk to your PCP if you need to add any medications fpc. Patient Instructions: Antibiotic Form Stand Alone Forms: General Discharge Information Follow-up/Referrals: Concepcion Armendariz PA-C [Primary Care Provider] - Discharge Medications: New metoprolol succinate [Toprol XL] 100 mg Tablet Extended Release 24 Hr 200 mg PO QAM 365 Days Qty: 30 0RF metoprolol succinate [Toprol XL] 100 mg Tablet Extended Release 24 Hr 100 mg PO HS Qty: 30 0RF acetaminophen 500 mg Tablet 1,000 mg PO Q6H PRN (Reason: Pain (Scale Score 1-3)) Qty: 30 0RF Continued alendronate 70 mg tablet 70 mg PO WEEKLY Qty: 14 4RF losartan 50 mg tablet 50 mg PO DAILY Rx Instructions: TAKE 1 TABLET BY MOUTH DAILY buspirone 5 mg tablet 5 mg PO BID Rx Instructions: TAKE 1 TABLET BY MOUTH TWICE DAILY donepezil 10 mg tablet 10 mg PO HS Rx Instructions: TAKE 1 TABLET BY MOUTH EVERY DAY AT BEDTIME aceta
== END 2024-01-16 13:25 | disposition home health service (06) ==
LOC: ANHED 01-14 02:40 → ANH3MEDSUR 01-14 03:45
PROVIDERS: Admitting Provider Internal Medicine; Emergency Provider Physician Assistant; PCP Physician Assistant; Visit Provider Nurse Practitioner Acute Care
DX: M79.605 Pain in left leg (principal); I65.23 Occlusion and stenosis of bilateral carotid arteries; W07.XXXA Fall from chair, initial encounter; R26.2 Difficulty in walking, not elsewhere classified; F03.90 Unspecified dementia, unspecified severity, without behavioral disturbance, psychotic disturbance, mood disturbance, and anxiety; I48.91 Unspecified atrial fibrillation; D64.9 Anemia, unspecified; I10 Essential (primary) hypertension; F41.9 Anxiety disorder, unspecified; I48.20 Chronic atrial fibrillation, unspecified; E03.9 Hypothyroidism, unspecified; F33.0 Major depressive disorder, recurrent, mild; E78.2 Mixed hyperlipidemia; E55.9 Vitamin D deficiency, unspecified; Z85.89 Personal history of malignant neoplasm of other organs and systems; Z90.49 Acquired absence of other specified parts of digestive tract; Z79.01 Long term (current) use of anticoagulants
CPT/HCPCS: 36415; 70450; 70496; 70498; 72125; 73562; 73590; 80048; 80053; 81003; 83735; 85025; 93005; 93971; 97161; 97165; 99285; A9270; G0378; J7030; Q9967